=== PATIENT | male | born 1985 | race Two or more races ===

== ENCOUNTER 2020-10-28 08:44 | Outpatient (REF) | payer OTHER, SELFPAY ==
[2020-10-28 09:55] LABS: MANUAL DIFF FLAG NO
[2020-10-28 10:11] LABS: Basophils Absolute Auto 0.1 X10*3/uL (0.0-0.2); Basophils Percent Auto 0.9 % (0-2); Eosinophils Absolute Auto 0.5 X10*3/uL (0.0-0.4); Hematocrit 44.4 % (42-52); Hemoglobin 14.8 g/dl (14.0-18.0); Imm Gran Abs Auto 0.02 X10*3/uL (0.00-0.03); Imm Gran Pct Auto 0.3 % (0.0-0.4); Lymphocytes Absolute Auto 1.9 X10*3/uL (1.2-4.9); Lymphocytes Percent Auto 26.7 % (20-40); Mean Corpuscular HGB Conc 33.3 g/dl (31.0-36.0); Mean Corpuscular Hemoglobin 28.1 pg (27.0-33.0); Mean Corpuscular Volume 84.4 fL (80-98); Mean Platelet Volume 10.4 fL (9.4-12.4); Monocytes Absolute Auto 0.7 X10*3/uL (0.1-1.2); Monocytes Percent Auto 10.4 % (2-11); Neutrophils Absolute Auto 3.8 X10*3/uL (2.0-8.3); Neutrophils Percent Auto 54.7 % (45-73); Platelet Count 280 X10*3/uL (160-400); Red Blood Count 5.26 X10*6/uL (4.60-5.80); Red Cell Distribution Width 12.8 % (11.0-16.0)
[2020-10-28 11:03] LABS: Alanine Aminotransferase 33 U/L (0-40); Albumin Level 4.7 g/dL (3.5-5.0); Alkaline Phosphatase 58 U/L (39-117); Anion Gap 14 (12-20); Aspartate Amino Transferase 18 U/L (5-37); Bilirubin Total 0.6 mg/dL (0.0-1.0); Blood Urea Nitrogen 21 mg/dL (9-16); Calcium 9.4 mg/dL (8.4-10.2); Carbon Dioxide 28 mmol/L (22-29); Chloride 105 mmol/L (96-108); Cholesterol 157 mg/dL; Estimated Glomerular Filt Rate > 60; Glucose Fasting 86 mg/dL (60-99); HDL Cholesterol 43 mg/dL; LDL Cholesterol Calculated 100 mg/dl; Potassium 4.3 mmol/l (3.3-5.1); Sodium 143 mmol/L (135-145); Total Protein 7.6 g/dL (6.5-8.0); Triglycerides 73 mg/dL
== END 2020-10-28 08:45 | disposition home or self-care (01) ==
LOC: HO.LAB 08:44
PROVIDERS: PCP Internal Medicine; Visit Provider Internal Medicine
DX: Z00.00 Encounter for general adult medical examination without abnormal findings (principal); E11.9 Type 2 diabetes mellitus without complications
CPT/HCPCS: 36415; 80053; 80061; 85025

== ENCOUNTER → 2020-12-22 08:13 | Outpatient (BNVA) | payer SELFPAY | PROVIDERS: PCP Internal Medicine; Visit Provider Internal Medicine | DX: Z02.79 Encounter for issue of other medical certificate (principal) ==

== ENCOUNTER → 2022-12-01 10:50 | Outpatient (BNVA) | payer SELFPAY | PROVIDERS: PCP Internal Medicine; Visit Provider Internal Medicine | DX: Z02.79 Encounter for issue of other medical certificate (principal) ==

== ENCOUNTER → 2022-12-26 07:24 | Outpatient (REF) | payer OTHER, SELFPAY ==
[2022-12-26 07:34] LABS: MANUAL DIFF FLAG NO
--- NOTE | 2022-12-26 07:46 | ECG_ITS ---
Test Reason : htn Blood Pressure : / mmHG Vent. Rate : 063 BPM Atrial Rate : 063 BPM P-R Int : 126 ms QRS Dur : 106 ms QT Int : 394 ms P-R-T Axes : 068 010 025 degrees QTc Int : 403 ms Normal sinus rhythm Minimal voltage criteria for LVH, may be normal variant ( R in aVL ) Borderline ECG No previous ECGs available Referred By: Manan Murry Electronically Signed By:Cedrick Randall
[2022-12-26 08:25] LABS: Basophils Percent Auto 0.5 % (0-2); Eosinophils Absolute Auto 0.5 X10*3/uL (0.0-0.4); Eosinophils Percent Auto 6.4 % (0-4); Hematocrit 45.5 % (42.0-52.0); Hemoglobin 15.1 g/dl (14.0-18.0); Imm Gran Abs Auto 0.03 X10*3/uL (0.00-0.03); Imm Gran Pct Auto 0.4 % (0.0-0.4); Lymphocytes Absolute Auto 2.4 X10*3/uL (1.2-4.9); Mean Corpuscular HGB Conc 33.2 g/dl (31.0-36.0); Mean Corpuscular Hemoglobin 27.9 pg (27.0-33.0); Mean Corpuscular Volume 83.9 fL (80.0-98.0); Mean Platelet Volume 9.7 fL (9.4-12.4); Monocytes Absolute Auto 0.8 X10*3/uL (0.1-1.2); Monocytes Percent Auto 9.2 % (2-11); Neutrophils Absolute Auto 4.4 x10*3/uL (2.0-8.3); Neutrophils Percent Auto 53.5 % (45-73); Platelet Count 340 X10*3/uL (160-400); Red Blood Count 5.42 X10*6/uL (4.60-5.80); Red Cell Distribution Width 12.8 % (11.0-16.0); White Blood Count 8.1 X10*3/uL (4.8-10.8)
[2022-12-26 08:53] LABS: Alanine Aminotransferase 26 U/L (0-40); Albumin Level 4.7 g/dL (3.5-5.0); Alkaline Phosphatase 60 U/L (39-117); Anion Gap 16 (12-20); Aspartate Amino Transferase 16 U/L (5-37); Bilirubin Total 0.6 mg/dL (0.0-1.0); Blood Urea Nitrogen 13 mg/dL (9-16); Calcium 9.8 mg/dL (8.4-10.2); Carbon Dioxide 24 mmol/L (22-29); Chloride 107 mmol/L (96-108); Cholesterol 162 mg/dL; Estimated Glomerular Filt Rate > 60; Glucose Fasting 85 mg/dL (60-99); HDL Cholesterol 43 mg/dL; LDL Cholesterol Calculated 105 mg/dl; Potassium 4.4 mmol/L (3.3-5.1); Sodium 143 mmol/L (135-145); Total Protein 7.5 g/dL (6.5-8.0); Triglycerides 73 mg/dL
[2022-12-26 09:14] LABS: Thyroid Stimulating Hormone 1.39 uIU/mL (0.32-4.0)
== END ==
LOC: HO.CARD 07:24
PROVIDERS: PCP Internal Medicine; Visit Provider Internal Medicine
DX: E78.5 Hyperlipidemia, unspecified (principal); D64.9 Anemia, unspecified; N28.9 Disorder of kidney and ureter, unspecified; E03.9 Hypothyroidism, unspecified; I10 Essential (primary) hypertension
CPT/HCPCS: 36415; 80053; 80061; 84443; 85025; 93005

== ENCOUNTER → 2023-03-06 13:54 | Outpatient (BNVA) | payer OTHER, SELFPAY | PROVIDERS: PCP Internal Medicine; Referring Provider Internal Medicine; Visit Provider Internal Medicine | DX: R00.2 Palpitations (principal); R07.2 Precordial pain; I10 Essential (primary) hypertension; E66.9 Obesity, unspecified; Z68.31 Body mass index [BMI] 31.0-31.9, adult | CPT/HCPCS: 99202 ==

== ENCOUNTER → 2023-04-06 08:44 | Outpatient (REF) | payer OTHER, SELFPAY ==
--- NOTE | 2023-04-06 08:47 | HM_ITS ---
* Total monitoring time 3 days. * Underlying rhythm is sinus. Average ventricular rate 77/Min. Range 51 to 171/Min. * Rare supraventricular ventricular ectopy. Minimal burden. * No sustained arrhythmias. * No significant pauses or AV blocks. * Symptoms in diary including pain, rapid heartbeat correlate with sinus rhythm and sinus tachycardia. MTDD
--- NOTE | 2023-04-06 08:47 | CA_ITS ---
Transthoracic Echocardiogram Patient (Last, First, Middle): Gabe Patel H Gender: Male Date of : 1985 Age: 37 Procedure Date: 04/06/2023 Procedure Type: Transthoracic Echocardiogram Location: OP Height: 162.56 cm Weight: 81.65 kg BSA: 1.87 m2 Heart Rate: bpm BP: 130 / 82 mmHg Pumping Supervisor: TO Referring MD: Herber Salazar MD Symptoms: I25.10 - Atherosclerotic heart disease of [place] coronary artery without... Study Quality: Adequate ECG Rhythm: Sinus Conclusions: - The left ventricular systolic function is normal. The visually estimated ejection fraction is between 55-60%. - No obvious valvular pathology seen on this study. Findings Left Ventricle Normal left ventricular cavity size. There is normal left ventricular wall thickness. The left ventricular systolic function is normal. The visually estimated ejection fraction is between 55-60%. There is no evidence of regional wall motion abnormalities. Diastolic function is normal for age. LV peak GLS -20.4%. Right Ventricle Normal right ventricular cavity size and systolic function. Atria Both atria are normal in size. Aortic Valve There is a normal trileaflet aortic valve. There is no aortic valve stenosis. There is no aortic valve regurgitation. Mitral Valve There is mild anterior mitral leaflet thickening. There is no mitral valve regurgitation. There is no mitral valve stenosis. Pulmonic Valve The pulmonic valve is likely normal. Tricuspid Valve Normal tricuspid valve structure. There is mild tricuspid valve regurgitation. There is no evidence of pulmonary hypertension. Great Vessels The asc aorta is normal in size. Venous The inferior vena cava is normal in size and collapses greater than 50% with inspiration. Pericardium/Pleural There is no evidence of pericardial effusion. Prior Study Comparison No prior study available for comparison. Recommendations, Care & Conclusions No obvious valvular pathology seen on this study. Measurements 2D Linear Measurements IVSd: 1.03 0.6-0.9/0.6-1.0 cm LVIDd: 4.94 3.9-5.3/4.2-5.9 cm LVIDd Index: 2.64 2.4-3.2/2.2-3.1 cm/m2 LVIDs: 3.56 2.0-3.6 cm LVPWd: 0.91 0.7-1.1 cm LA Diam: 3.40 2.7-3.8/3.0-4.0 cm LAIDs Index: 1.82 1.5-2.3 cm/m2 LV Mass: 213.31 67-162/88-224 g LV Mass Index: 114.07 43-95/49-115 g/m2 LVOT Diam: 2.20 3.0+(-)1.3 cm 2D Systolic Function EF 4C: 65.10 >55% EF 2C: 59.40 >55% EF BiP: 62.30 >55% Mitral Valve MV VTI: 0.35 MV Pk Jamari: 1.45 MV Mn Jamari: 0.61 MV Pk Grad: 8.00 MV Mn Grad: 2.00 MV Pk E: 1.13 MV PK A: 0.46 MV Decel Time: 240.00 E/A: 2.50 E'Lateral: 17.00 E'Medial: 10.70 E/E' Med: 10.60 E/E' Lat: 6.60 PHT: 70.00 MVA PHT: 3.14 MVA Continuity: 2.09 Decel Gentry: 4.70 Aortic Valve AoV Pk Jamari: 1.64 AoV Mn Jamari: 1.05 AoV VTI: 0.31 AoV Pk Grad: 11.00 Aov Mn Grad: 5.00 YANETH Cont.VTI: 2.42 LVOT LVOT Pk Jamari: 1.01 LVOT Mn Jamari: 0.68 LVOT VTI: 0.19 LVOT Pk Grad: 4.00 LVOT Mn Grad: 2.00 LVOT Diam: 2.20 LVOT Area: 3.80 Diastolic Function MV Pk E: 1.13 MV Pk A: 0.46 E/A: 2.50 E'Medial: 10.70 E/E' Med: 10.60 E' Laterial: 17.00 E/E' Lat: 6.60 Right Ventricle TAPSE (mm): 22.80 TVS' Jamari: 12.90 Tricuspid Valve TR Pk Jamari: 2.74 TR Pk Grad: 30.00 RA Press: 3.00 RVSP: 33.00 Great Vessels Aorta Sinus of Valsalva: 3.34 2.0-3.5 cm Ao Asc: 2.90 2.1-3.4 cm Updated in Other Vendor System with Status of Final Herber Salazar MD electronically signed on 04/08/2023 12:00:22 PM with status of Final
== END ==
LOC: HO.CARD 08:44
PROVIDERS: PCP Internal Medicine; Visit Provider Internal Medicine
DX: R07.2 Precordial pain (principal); R00.2 Palpitations; I25.10 Atherosclerotic heart disease of native coronary artery without angina pectoris
CPT/HCPCS: 93242; 93306; 93356

== ENCOUNTER → 2023-04-14 10:25 | Outpatient (REF) | payer OTHER, SELFPAY ==
--- NOTE | 2023-04-14 10:30 | CA_ITS ---
Acquisition Time: 2023-04-14 10:55:49 Total Exercise Time: 00:09:00 Test Indications: Palpitations Medications: See H Protocol: JACOB Max HR: 176 BPM 96% of Pred: 183 BPM Max BP: 152/070 mmHG Max Work Load: 10.1 METS Exercise stress test with exercise 9 min of Jacob protocol, achieving 96% MPHR, without anginal symptoms, without arrythmia, with normotensive response to exercise, without EKG changes meeting criteria for ischemia. Echo images obtained by [employer] at rest and immediately post peak exercise. Definity contrast used. Test reviewed with Dr Randall. Echocardiography images reviewed at rest and post exercise. Resting: normal LVEF, no RWMA. Stress: No stress induced RWMA, LV cavity is smaller and LVEF appropriately augmented. Conclusion: Normal stress echocardiogram at achieved workload.
== END ==
LOC: HO.CARD 10:25
PROVIDERS: PCP Internal Medicine; Visit Provider Internal Medicine
DX: R07.2 Precordial pain (principal)
CPT/HCPCS: 93350; Q9957

== ENCOUNTER 2023-04-28 14:23 | Outpatient (AMB) | payer OTHER, SELFPAY ==
[2023-04-28 14:52] VITALS: BP 140/80; PULSE 79; BMI 31.0
--- NOTE | 2023-04-28 14:52 | MHC.OFFVIS ---
Intake Vital Signs 04/28/23 14:52 Height 5 ft 4 in Weight 180 lb 12.465 oz BMI 31.0 BP 140/80 H Blood Pressure Location Lt brachial Position Sitting Pulse 79 Intake Visit Reasons: pt requested/followup Intake Note: pt request f/u Retail Sales Consultant Required: Yes Retail Sales Consultant Name: angelo cifuentes [phone] Allergies No Known Allergies Allergy (Verified 04/28/23 15:00) Medication List - Last Reconciled 04/28/23 by KENYON Duvall amlodipine 10 mg PO DAILY HPI pt requested/followup HPI Details Gabe is a 37-year-old male with past medical history of mild obesity, hypertension who recently reported heart palpitations and atypical chest discomfort. He underwent cardiac testing with echocardiogram, stress test and Holter monitor and now presents for follow-up. today he states that he continues to feel his heart go fast at times. It mostly occurs after eating and when he lays down at night. He will also get a periodically cramp in his left side which occurs randomly. He has no dizziness, presyncope, syncope, falls. No exertional chest discomfort. No shortness of breath, PND, orthopnea or edema. He has been taking his blood pressure medication as directed. Certified ripening room hand used. [facility] Medical History (Updated 03/06/23 @ 14:20 by Herber Salazar MD) Hypertension Surgical History No history of previous surgery Family History Mother High blood pressure Cancer Father No problems noted. Social History Housing: Apartment Alcohol intake: current Alcohol intake frequency: a few times a month Patient Tobacco Use Status: Never used Tobacco e-Cigarette/Vaping Use: Never Used Second Hand Smoke Exposure: No service: No Current occupational status: employed Cognitive needs: No Hearing needs: No Vision needs: No Review of Systems ENT Reports dizziness Card Denies chest pain, Denies chest pain at rest, Denies chest pain with activity, Denies rapid heart rate, Denies pedal edema, Denies edema, Denies leg edema, Denies lightheadedness, Reports palpitations, Denies dyspnea, Denies dyspnea on exertion and Denies orthopnea Resp Denies cough, Denies dyspnea and Denies dyspnea on exertion GI Denies hematochezia and Denies change in stool character Musc Denies abnormal gait, Reports limited range of motion, Reports muscle cramps, Denies muscle weakness, Denies numbness, Denies radiating pain into limb, Denies stiffness and Denies tingling Neuro Denies abnormal gait, Reports dizziness, Denies numbness and Denies tingling Endo Reports palpitations Physical Exam Vital Signs: Last Vital Signs Pulse 79 04/28/23 14:52 BP 140/80 H 04/28/23 14:52 BMI result Body Mass Index 31.0 Const General: cooperative, healthy appearing, comfortable and no acute distress Orientation/consciousness: patient oriented x3 Neck Neck: Yes normal visual inspection and Yes no JVD Carotids: normal carotid upstroke Chest Chest palpation & inspection: normal inspection of the chest Resp Effort & Inspection: normal respiratory effort Auscultation: clear to auscultation bilaterally, no crackles, no rales, no rhonchi and no wheezes Cardio Jugular venous distension: no JVD Rate: regular rate Rhythm: regular rhythm Heart sounds: S1 normal heart sound present, S2 normal heart sound present, no gallops, no murmurs and no rubs Neuro General: patient oriented x3 Extrem General: Yes normal to inspection Psych Appearance: grossly normal Mental Status: mental status grossly normal Speech and movement: Normal speech and movement present Office Procedures EKG Details: today, read by me, SR, no acute ST/ T wave abn, rate 79, qtc 433ms [id number], Complete Assessment & Plan Assessment & Plan (1) Palpitations: Code(s): R00.2 - Palpitations Plan: Report of heart palpitation like his heart is beating fast without associated symptoms. Holter monitor done on 04/06/2023 for 3 days showed sinus rhythm with rare supra ventricular ectopy, average heart rate 77, reported symptoms correlated with sinus rhythm and sinus tach. Echocardiogram done 04/06/2023 showed EF 55-60%, no valve abnormalities and no reported regional wall motion abnormalities. Reviewed with him and offered reassurance. He confirmed that he did feel his heart palpitations while wearing the heart monitor. Blood pressure was initially mildly elevated then improved on recheck. Elevated blood pressure meetings keep may contribute to his strong heart pounding. Reviewed good hydration, exercise as tolerated, importance of good blood pressure control. Cardiology follow-up can be p.r.n. (2) Precordial chest pain: Code(s): R07.2 - Precordial pain Plan: on last visit reported some chest discomfort. Today he describes it more as being a cramp on his left side. An exercise stress echo was done on 04/14 showing exercise 9 minutes, no EKG changes, no echo evidence of ischemia. His discomfort is atypical and no evidence that it is cardiac in nature. He has follow-up with his PCP in June. Can further discuss with PCP if his symptoms persist (3) Hypertension: Code(s): I10 - Essential (primary) hypertension Plan: as above. Continue amlodipine without change. Coding Level of Care Code Est Pt Level 4 (71015) Diagnoses Palpitations R00.2 Precordial chest pain R07.2 Hypertension I10 CPT Codes EKG - CPT: 28611-[id number], Complete ([id number]) Time Spent (min) 28 Comment chart review, document, interview, assess
== END 2023-04-28 15:48 | disposition home or self-care (01) ==
PROVIDERS: PCP Internal Medicine; Visit Provider Nurse Practitioner Family
DX: R00.2 Palpitations (principal); R07.2 Precordial pain; I10 Essential (primary) hypertension
CPT/HCPCS: 93010; 99214

== ENCOUNTER → 2023-04-28 14:23 | Outpatient (BNVA) | payer OTHER, SELFPAY | PROVIDERS: PCP Internal Medicine; Visit Provider Nurse Practitioner Family | DX: R00.2 Palpitations (principal); R07.2 Precordial pain; I10 Essential (primary) hypertension | CPT/HCPCS: 93005; 99212 ==

== ENCOUNTER 2023-07-05 13:26 | Outpatient (AMB) | payer OTHER, SELFPAY ==
[2023-07-05 13:30] VITALS: BP 128/66; PULSE 80; O2SAT 99; BMI 30.6
--- NOTE | 2023-07-05 13:30 | A.OFFPC_ITS ---
Vital Signs 07/05/23 13:30 Height 5 ft 4 in Weight 178 lb BMI 30.6 BP 128/66 Blood Pressure Location Lt brachial Position Sitting Pulse 80 Pulse Source Pulse Oximeter Pulse Oximetry (%) 99 Oxygen Delivery Method Room Air Intake Visit Reasons: 6 month f/u Cask Maker: Not Required per policy Accompanied by: Self / Same As Patient Allergies No Known Allergies Allergy (Verified 07/05/23 13:30) Tobacco use date assessed: 12/22/22 Dental Screening Dental Screen Date: 07/05/23 Did you have a dental visit in the last 12 months?: Yes Did you have a dental problem in the last 6 months where you did not have access to dental care?: No Was dental information given to patient?: Patient has dentist HPI 6 month f/u HPI Details HTN; bp has been elevated at home [facility] Medical History Hypertension Surgical History No history of previous surgery Family History Mother High blood pressure Cancer Father No problems noted. Social History Housing: Apartment Alcohol intake: current Alcohol intake frequency: a few times a month Patient Tobacco Use Status: Never used Tobacco e-Cigarette/Vaping Use: Never Used Second Hand Smoke Exposure: No service: No Current occupational status: employed Cognitive needs: No Hearing needs: No Vision needs: No Questionnaire PHQ-9 Over the last 2 weeks, how often have you been bothered by any of the following problems? 1. Little interest or pleasure in doing things: not at all 2. Feeling down, depressed, or hopeless: not at all 3. Trouble falling or staying asleep, or sleeping too much: not at all 4. Feeling tired or having little energy: not at all 5. Poor appetite or overeating: not at all 6. Feeling bad about yourself - or that you are a failure or have let yourself or your family down: not at all 7. Trouble concentrating on things, such as reading the newspaper or watching television: not at all 8. Moving or speaking so slowly that other people could have noticed. Or the opposite - being so fidgety or restless that you have been moving around a lot more than usual: not at all 9. Thoughts that you would be better off or of hurting yourself in some way: not at all Total score: 0 Depression Screening Interpretation: Negative 61217 - PHQ-9 Billing: Yes Source: Developed by Drs. Abhijeet Nunn, Mary Baker, Sherwin Kaminski and colleagues, with an educational valarie from [employer]. Thrive Questionnaire Date Thrive assessed: 12/22/22 AUDIT C Alcohol Use Questionnaire (AUDIT-C) 1. How often do you have a drink containing alcohol?: Never Total Score: 0 MARVEL-7 AMB Questionnaire MARVEL-7 Date MARVEL - 7 assessed: 12/22/22 Source: Developed by Drs. Abhijeet Nunn, Mary Baker, Sherwin Kaminski and colleagues, with an educational valarie from [employer]. Review of Systems Const Denies chills, Denies headache(s) and Denies weight loss ENT Denies headache(s) Card Denies chest pain, Denies syncope, Denies irregular heart rhythm and Denies d yspnea Resp Denies chest congestion, Denies cough and Denies dyspnea GI Denies abdominal pain, Denies change in stool character, Denies nausea and Den ies vomiting Musc Denies deformity and Denies joint swelling Neuro Denies syncope and Denies headache(s) Physical exam (Primary Care) Vital Signs: Last Vital Signs Pulse 80 07/05/23 13:30 BP 128/66 07/05/23 13:30 Pulse Ox 99 07/05/23 13:30 Oxygen Delivery Method Room Air 07/05/23 13:30 BMI result Body Mass Index 30.6 Tobacco/Smoking Status: Tobacco use Status Tobacco use date assessed 12/22/22 07/05/23 13:33 Patient Tobacco Use Status Never used Tobacco 07/05/23 13:33 Tobacco use type 03/06/23 14:26 e-Cigarette/Vaping Use Never Used 07/05/23 13:33 PHQ-9: PHQ-9 Score PHQ-9: Total score 0 07/05/23 13:33 Depression Screening Interpretation: Negative Thrive Assessment: Date of Thrive Assessment Date Thrive assessed 12/22/22 07/05/23 13:33 Const General: cooperative, comfortable, no acute distress and alert Neck Neck: Yes no lymphadenopathy Thyroid: Thyroid normal Resp Effort & Inspection: normal respiratory effort Auscultation: clear to auscultation bilaterally Percussion: percussion normal Cardio Jugular venous distension: no JVD Palpation: normal PMI Rate: regular rate Rhythm: regular rhythm Heart sounds: S1 normal heart sound present and S2 normal heart sound present GI Inspection: Yes normal to inspection Palpation (GI): No hepatosplenomegaly present Skin General skin exam: no rashes or lesions noted Extrem General: Yes no clubbing, cyanosis or edema Assessment and Plan Assessment & Plan (1) Hypertension: Code(s): I10 - Essential (primary) hypertension Plan: add hctz Medications: New hydrochlorothiazide 12.5 mg PO DAILY 60 tabs 3RF Coding Level of Care Code Est Pt Level 3 (77562) Diagnoses Hypertension I10
== END 2023-07-05 13:41 | disposition home or self-care (01) ==
PROVIDERS: Visit Provider Internal Medicine
DX: I10 Essential (primary) hypertension (principal)
CPT/HCPCS: 99213

== ENCOUNTER 2023-07-24 13:33 | Outpatient (AMB) | payer OTHER, SELFPAY ==
--- NOTE | 2023-07-24 13:34 | MHC.PC.OV ---
Vital Signs 07/24/23 13:35 Height 5 ft 4 in Weight 175 lb BMI 30.0 BP 128/76 Blood Pressure Location Lt brachial Position Sitting Pulse 75 Pulse Source Pulse Oximeter Pulse Oximetry (%) 98 Oxygen Delivery Method Room Air Intake Visit Reasons: 3 Weeks F/U Intake Note: Patient here for a 3 week follow up, c/o nasal congestion requesting stabilizing machine operator referral Plant Taxonomist Required: No Accompanied by: Self / Same As Patient Allergies No Known Allergies Allergy (Verified 07/24/23 13:36) Medication List - Last Reconciled 07/25/23 by Manan Murry MD amlodipine 10 mg PO DAILY Tobacco use date assessed: 12/22/22 Dental Screening Dental Screen Date: 07/24/23 Did you have a dental visit in the last 12 months?: Yes Did you have a dental problem in the last 6 months where you did not have access to dental care?: No Was dental information given to patient?: Patient has dentist HPI 3 Weeks F/U HPI Details HTN on Rx; doing well on current regimen PFSH Medical History Hypertension Surgical History No history of previous surgery Family History Mother High blood pressure Cancer Father No problems noted. Social History Housing: Apartment Alcohol intake: current Alcohol intake frequency: a few times a month Patient Tobacco Use Status: Never used Tobacco e-Cigarette/Vaping Use: Never Used Second Hand Smoke Exposure: No service: No Current occupational status: employed Cognitive needs: No Hearing needs: No Vision needs: No Questionnaire PHQ-9 Over the last 2 weeks, how often have you been bothered by any of the following problems? Depression Screening Interpretation: Negative Depression Screening Done: Yes Source: Developed by Drs. Abhijeet Nunn, Mary Baker, Sherwin Kaminski and colleagues, with an educational valarie from [employer]. Thrive Questionnaire Date Thrive assessed: 12/22/22 MARVEL-7 AMB Questionnaire MARVEL-7 Date MARVEL - 7 assessed: 12/22/22 Source: Developed by Drs. Abhijeet Nunn, Mary Baker, Sherwin Kaminski and colleagues, with an educational valarie from [employer]. Review of Systems Const Denies chills, Denies headache(s) and Denies weight loss ENT Denies headache(s) Card Denies chest pain, Denies syncope, Denies irregular heart rhythm and Denies dyspnea Resp Denies chest congestion, Denies cough and Denies dyspnea GI Denies abdominal pain, Denies change in stool character, Denies nausea and Denies vomiting Musc Denies deformity and Denies joint swelling Neuro Denies syncope and Denies headache(s) Physical exam (Primary Care) Vital Signs: Last Vital Signs Pulse 75 07/24/23 13:35 BP 128/76 07/24/23 13:35 Pulse Ox 98 07/24/23 13:35 Oxygen Delivery Method Room Air 07/24/23 13:35 BMI result Body Mass Index 30.0 Tobacco/Smoking Status: Tobacco use Status Tobacco use date assessed 12/22/22 07/24/23 13:39 Patient Tobacco Use Status Never used Tobacco 07/24/23 13:39 Tobacco use type 03/06/23 14:26 e-Cigarette/Vaping Use Never Used 07/24/23 13:39 Depression Screening Interpretation: Negative Thrive Assessment: Date of Thrive Assessment Date Thrive assessed 12/22/22 07/24/23 13:39 Const General: cooperative, comfortable, no acute distress and alert Neck Neck: Yes no lymphadenopathy Thyroid: Thyroid normal Resp Effort & Inspection: normal respiratory effort Auscultation: clear to auscultation bilaterally Percussion: percussion normal Cardio Jugular venous distension: no JVD Palpation: normal PMI Rate: regular rate Rhythm: regular rhythm Heart sounds: S1 normal heart sound present and S2 normal heart sound present GI Inspection: Yes normal to inspection Palpation (GI): No hepatosplenomegaly present Skin General skin exam: no rashes or lesions noted Extrem General: Yes no clubbing, cyanosis or edema Office Procedures Flu Questionnaire Does the patient have a severe egg allergy?: No Immunizations flu vacc [id number] 6mos up(PF) 60 mcg(15 mcgx4)/0.5 mL IM syringe Performing Provider: Manan Murry MD [facility] Documented (not given) by: MANSI Gunn on 07/24/23 13:40 Reason Not Given: Patient Refused Assessment and Plan Assessment & Plan (1) Hypertension: Code(s): I10 - Essential (primary) hypertension Plan: stable; same rx Orders: Orders Influenza [id number] Immunization 07/24/23 Z23 - Encounter for immunization XR skull <4V 07/24/23 Q75.9 - Congenital malformation of skull and face bones, unspecified Coding Level of Care Code Est Pt Level 3 (97308) Diagnoses Hypertension I10
[2023-07-24 13:35] VITALS: BP 128/76; PULSE 75; O2SAT 98
== END 2023-07-24 13:46 | disposition home or self-care (01) ==
PROVIDERS: PCP Internal Medicine; Visit Provider Internal Medicine
DX: I10 Essential (primary) hypertension (principal); E66.9 Obesity, unspecified; Z68.30 Body mass index [BMI] 30.0-30.9, adult
CPT/HCPCS: 99213

== ENCOUNTER 2023-07-24 13:55 | Outpatient (REF) | payer OTHER, SELFPAY ==
--- NOTE | ~2023-07-24 | XR_ITS ---
EXAMINATION: XR SKULL CLINICAL INFORMATION: Question congenital malformation. COMPARISON: None available. TECHNIQUE: 5 views of the skull were obtained. FINDINGS: The calvarium is intact. The sutural pattern is unremarkable. No congenital malformation is noted. The orbits are symmetric and unremarkable. The paranasal sinuses are well aerated and clear. The nasal septum is midline. No fracture or bone erosion is seen. There is no soft tissue calcification or foreign body noted. XR/XR skull <4V IMPRESSION: Unremarkable examination.
== END 2023-07-24 13:56 | disposition home or self-care (01) ==
LOC: HO.XRAY 13:55
PROVIDERS: PCP Internal Medicine; Visit Provider Internal Medicine
DX: Q75.9 Congenital malformation of skull and face bones, unspecified (principal)
CPT/HCPCS: 70250

== ENCOUNTER 2023-09-04 09:21 | Outpatient (AMB) | payer OTHER, SELFPAY ==
[2023-09-04 09:24] VITALS: BP 111/60; PULSE 64; O2SAT 99; BMI 30.9
--- NOTE | 2023-09-04 09:24 | MHC.PC.OV ---
Vital Signs 09/04/23 09:24 Height 5 ft 4 in Weight 180 lb BMI 30.9 BP 111/60 Blood Pressure Location Lt brachial Position Sitting Pulse 64 Pulse Source Pulse Oximeter Pulse Oximetry (%) 99 Oxygen Delivery Method Room Air Intake Visit Reasons: 3 week f/u Staff Anesthesiologist: Not Required per policy Accompanied by: Self / Same As Patient Allergies No Known Allergies Allergy (Verified 09/04/23 09:24) Medication List - Last Reconciled 09/04/23 by Manan Murry MD amlodipine 10 mg PO DAILY Tobacco use date assessed: 12/22/22 Dental Screening Dental Screen Date: 09/04/23 Did you have a dental visit in the last 12 months?: Yes Did you have a dental problem in the last 6 months where you did not have access to dental care?: No Was dental information given to patient?: Patient has dentist HPI 3 week f/u HPI Details HTN on Rx; dizzy in AM; BP too low PFSH Medical History Hypertension Surgical History No history of previous surgery Family History Mother High blood pressure Cancer Father No problems noted. Social History Housing: Apartment Alcohol intake: current Alcohol intake frequency: a few times a month Patient Tobacco Use Status: Never used Tobacco e-Cigarette/Vaping Use: Never Used Second Hand Smoke Exposure: No service: No Current occupational status: employed Cognitive needs: No Hearing needs: No Vision needs: No Questionnaire PHQ-9 Over the last 2 weeks, how often have you been bothered by any of the following problems? Depression Screening Interpretation: Negative Depression Screening Done: Yes Source: Developed by Drs. Abhijeet Nunn, Mary Baker, Sherwin Kaminski and colleagues, with an educational valarie from [employer]. Thrive Questionnaire Date Thrive assessed: 12/22/22 AUDIT C Alcohol Use Questionnaire (AUDIT-C) 1. How often do you have a drink containing alcohol?: Never Total Score: 0 MARVEL-7 AMB Questionnaire MARVEL-7 Date MARVEL - 7 assessed: 12/22/22 Source: Developed by Drs. Abhijeet Nunn, Mary Baker, Sherwin Kaminski and colleagues, with an educational valarie from [employer]. Review of Systems Const Denies chills, Denies headache(s) and Denies weight loss ENT Denies headache(s) Card Denies chest pain, Denies syncope, Denies irregular heart rhythm and Denies dyspnea Resp Denies chest congestion, Denies cough and Denies dyspnea GI Denies abdominal pain, Denies change in stool character, Denies nausea and Denies vomiting Musc Denies deformity and Denies joint swelling Neuro Denies syncope and Denies headache(s) Physical exam (Primary Care) Vital Signs: Last Vital Signs Pulse 64 09/04/23 09:24 BP 111/60 09/04/23 09:24 Pulse Ox 99 09/04/23 09:24 Oxygen Delivery Method Room Air 09/04/23 09:24 BMI result Body Mass Index 30.9 Tobacco/Smoking Status: Tobacco use Status Tobacco use date assessed 12/22/22 09/04/23 09:28 Patient Tobacco Use Status Never used Tobacco 09/04/23 09:28 Tobacco use type 03/06/23 14:26 e-Cigarette/Vaping Use Never Used 09/04/23 09:28 Depression Screening Interpretation: Negative Thrive Assessment: Date of Thrive Assessment Date Thrive assessed 12/22/22 09/04/23 09:28 Const General: cooperative, comfortable, no acute distress and alert Neck Neck: Yes no lymphadenopathy Thyroid: Thyroid normal Resp Effort & Inspection: normal respiratory effort Auscultation: clear to auscultation bilaterally Percussion: percussion normal Cardio Jugular venous distension: no JVD Palpation: normal PMI Rate: regular rate Rhythm: regular rhythm Heart sounds: S1 normal heart sound present and S2 normal heart sound present GI Inspection: Yes normal to inspection Palpation (GI): No hepatosplenomegaly present Skin General skin exam: no rashes or lesions noted Extrem General: Yes no clubbing, cyanosis or edema Assessment and Plan Assessment & Plan (1) Hypertension: Code(s): I10 - Essential (primary) hypertension Plan: decrease rx to 5mg; check labs Orders: Orders Lipid Panel Today E78.5 - Hyperlipidemia, unspecified Complete Blood Count Auto Diff Today D64.9 - Anemia, unspecified Comprehensive [place]. Panel Fast Today N28.9 - Disorder of kidney and ureter, unspecified Medications: New amlodipine 5 mg PO DAILY 30 tabs 5RF Discontinued amlodipine Discontinued Reason: Doctor's Order 10 mg PO DAILY 90 tabs 4RF Coding Level of Care Code Est Pt Level 3 (27675) Diagnoses Hypertension I10
== END 2023-09-04 09:36 | disposition home or self-care (01) ==
PROVIDERS: PCP Internal Medicine; Visit Provider Internal Medicine
DX: I10 Essential (primary) hypertension (principal)
CPT/HCPCS: 99213

== ENCOUNTER 2023-09-05 07:04 | Outpatient (REF) | payer OTHER, SELFPAY ==
[2023-09-05 07:17] LABS: MANUAL DIFF FLAG NO
[2023-09-05 07:34] LABS: Basophils Absolute Auto 0.1 X10*3/uL (0.0-0.2); Basophils Percent Auto 0.7 % (0-2); Eosinophils Absolute Auto 0.6 X10*3/uL (0.0-0.4); Eosinophils Percent Auto 8.3 % (0-4); Hematocrit 44.2 % (42.0-52.0); Hemoglobin 14.7 g/dl (14.0-18.0); Imm Gran Abs Auto 0.03 X10*3/uL (0.00-0.03); Imm Gran Pct Auto 0.4 % (0.0-0.4); Lymphocytes Absolute Auto 2.1 X10*3/uL (1.2-4.9); Lymphocytes Percent Auto 29.1 % (20-40); Mean Corpuscular HGB Conc 33.3 g/dl (31.0-36.0); Mean Corpuscular Hemoglobin 27.7 pg (27.0-33.0); Mean Corpuscular Volume 83.2 fL (80.0-98.0); Mean Platelet Volume 9.5 fL (9.4-12.4); Monocytes Absolute Auto 0.7 X10*3/uL (0.1-1.2); Neutrophils Absolute Auto 3.7 x10*3/uL (2.0-8.3); Neutrophils Percent Auto 51.5 % (45-73); Platelet Count 282 X10*3/uL (160-400); Red Blood Count 5.31 X10*6/uL (4.60-5.80); Red Cell Distribution Width 12.9 % (11.0-16.0); White Blood Count 7.2 X10*3/uL (4.8-10.8)
[2023-09-05 07:51] LABS: Alanine Aminotransferase 22 U/L (0-40); Albumin Level 4.4 g/dL (3.5-5.0); Alkaline Phosphatase 62 U/L (39-117); Anion Gap 8 (12-20); Aspartate Amino Transferase 15 U/L (5-37); Bilirubin Total 0.6 mg/dL (0.0-1.0); Blood Urea Nitrogen 12 mg/dL (9-16); Calcium 9.4 mg/dL (8.4-10.2); Carbon Dioxide 28 mmol/L (22-29); Chloride 109 mmol/L (96-108); Cholesterol 149 mg/dL (<200); Estimated Glomerular Filt Rate > 60; Glucose Fasting 91 mg/dL (60-99); HDL Cholesterol 45 mg/dL (>40); LDL Cholesterol Calculated 91 mg/dL (<100); Potassium 3.8 mmol/L (3.3-5.1); Sodium 141 mmol/L (135-145); Total Protein 7.4 g/dL (6.5-8.0); Triglycerides 67 mg/dL (<150)
== END 2023-09-05 07:05 | disposition home or self-care (01) ==
LOC: HO.LAB 07:04
PROVIDERS: PCP Internal Medicine; Visit Provider Internal Medicine
DX: D64.9 Anemia, unspecified (principal); E78.5 Hyperlipidemia, unspecified; N28.9 Disorder of kidney and ureter, unspecified
CPT/HCPCS: 36415; 80053; 80061; 85025

== ENCOUNTER 2024-03-20 08:39 | Outpatient (AMB) | payer OTHER, SELFPAY ==
--- NOTE | 2024-03-20 08:57 | A.OFFPC_ITS ---
Vital Signs 03/20/24 08:59 Height 5 ft 4 in Weight 181 lb BMI 31.1 BP 124/74 Blood Pressure Location Lt brachial Position Sitting Pulse 67 Pulse Source Pulse Oximeter Pulse Oximetry (%) 98 Oxygen Delivery Method Room Air Intake Visit Reasons: fungal toenail Intake Note: Patient is here to follow up on Fungal toenail on both feet, right worse than left. Glove Parts Inspector Required: No Electronics Supervisor: Not Required per policy Accompanied by: Self / Same As Patient Allergies No Known Allergies Allergy (Verified 03/20/24 08:58) Tobacco use date assessed: 03/20/24 Dental Screening Dental Screen Date: 03/20/24 Did you have a dental visit in the last 12 months?: Yes Did you have a dental problem in the last 6 months where you did not have access to dental care?: No Was dental information given to patient?: Patient has dentist HPI fungal toenail HPI Details 38-year-old male presents to the office for a sick visit. I am seeing him in lieu of his primary care provider who is not in the office today. Patient is reporting that his toenails are disfigured. The toenail on the great toe of the right foot, came off last week. He would like to get possible treatment for it. [facility] Medical History Hypertension Surgical History No history of previous surgery Family History Mother High blood pressure Cancer Father No problems noted. Social History Housing: Apartment Alcohol intake: current Alcohol intake frequency: a few times a month Patient Tobacco Use Status: Never used Tobacco e-Cigarette/Vaping Use: Never Used Second Hand Smoke Exposure: No service: No Current occupational status: employed Cognitive needs: No Hearing needs: No Vision needs: No Questionnaire PHQ-9 Over the last 2 weeks, how often have you been bothered by any of the following problems? 1. Little interest or pleasure in doing things: not at all 2. Feeling down, depressed, or hopeless: not at all 3. Trouble falling or staying asleep, or sleeping too much: not at all 4. Feeling tired or having little energy: not at all 5. Poor appetite or overeating: not at all 6. Feeling bad about yourself - or that you are a failure or have let yourself or your family down: not at all 7. Trouble concentrating on things, such as reading the newspaper or watching television: not at all 8. Moving or speaking so slowly that other people could have noticed. Or the opposite - being so fidgety or restless that you have been moving around a lot more than usual: not at all 9. Thoughts that you would be better off or of hurting yourself in some way: not at all Total score: 0 Depression Screening Interpretation: Negative Depression Screening Done: Yes Source: Developed by Drs. Abhijeet Nunn, Mary Baker, Sherwin Kaminski and colleagues, with an educational valarie from [employer]. Thrive Questionnaire Date Thrive assessed: 03/20/24 I am a: Patient What is your living situation today?: I have a steady place to live Within the past 12 months, did the food you bought not last and you didn't have the money to get more?: Never true Within the past 12 months, did you worry whether your food would run out before you got money to buy more?: Never true Do you have trouble paying for medicines?: No Do you have trouble getting transportation to medical appointments?: No Do you have trouble paying your heating and electricity bill?: No Do you have trouble taking care of your child, family member or friend?: No Do you have trouble with day-to-day activities such as bathing, preparing meals, shopping, managing finances, etc.?: No Are you currently unemployed and looking for a job?: No Are you interested in more education?: No Currently or been in a relationship where the following occur: no concerns reported THRIVE Score: 0 AUDIT C Alcohol Use Questionnaire (AUDIT-C) 1. How often do you have a drink containing alcohol?: Never Total Score: 0 MARVEL-7 AMB Questionnaire MARVEL-7 Date MARVEL - 7 assessed: 03/20/24 Feeling nervous, anxious, or on edge: 0 = Not at all Not being able to stop or control worryin = Not at all Worrying too much about different things: 0 = Not at all Trouble relaxin = Not at all Being so restless that it is hard to sit still: 0 = Not at all Becoming easily annoyed or irritable: 0 = Not at all Feeling afraid as if something awful might happen: 0 = Not at all Total MARVEL-7 score (0-4 normal; 5-9 mild; 10-14 moderate; 15-21 severe): 0 Source: Developed by Drs. Abhijeet Nunn, Mary Baker, Sherwin Kaminski and colleagues, with an educational valarie from [employer]. Physical exam (Primary Care) Vital Signs: Last Vital Signs Pulse 67 03/20/24 08:59 BP 124/74 03/20/24 08:59 Pulse Ox 98 03/20/24 08:59 Oxygen Delivery Method Room Air 03/20/24 08:59 BMI result Body Mass Index 31.1 Tobacco/Smoking Status: Tobacco use Status Tobacco use date assessed 03/20/24 03/20/24 09:02 Patient Tobacco Use Status Never used Tobacco 03/20/24 09:02 Tobacco use type 03/06/23 14:26 e-Cigarette/Vaping Use Never Used 03/20/24 09:02 PHQ-9: PHQ-9 Score PHQ-9: Total score 0 03/20/24 09:02 Depression Screening Interpretation: Negative Thrive Assessment: Date of Thrive Assessment Date Thrive assessed 03/20/24 03/20/24 09:02 Currently or been in a relationship where the following occur: no concerns reported Extrem Other: Right and left foot: Great toe: Dystrophic nail on the left foot. Hard granulation tissue on the bed of the right great toe. Assessment and Plan Assessment & Plan (1) Nail dystrophy: Code(s): L60.3 - Nail dystrophy Plan: Podiatry consult has been requested. Coding Level of Care Code Est Pt Level 3 (37258) Diagnoses Nail dystrophy L60.3
[2024-03-20 08:59] VITALS: BP 124/74; PULSE 67; O2SAT 98; BMI 31.1
== END 2024-03-20 11:45 | disposition home or self-care (01) ==
PROVIDERS: PCP Internal Medicine; Visit Provider Internal Medicine
DX: L60.3 Nail dystrophy (principal)
CPT/HCPCS: 99213

== ENCOUNTER 2024-09-23 14:32 | Outpatient (AMB) | payer OTHER, SELFPAY ==
[2024-09-23 14:36] VITALS: BP 104/80; PULSE 74; O2SAT 97; BMI 31.3
--- NOTE | 2024-09-23 14:36 | A.OFFPC_ITS ---
Vital Signs 09/23/24 14:36 Height 5 ft 4 in Weight 182 lb 2 oz BMI 31.3 BP 104/80 Blood Pressure Location Lt brachial Position Sitting Pulse 74 Pulse Source Pulse Oximeter Pulse Oximetry (%) 97 Oxygen Delivery Method Room Air Intake Visit Reasons: annual exam Hairspring Setter Required: No Accompanied by: Self / Same As Patient Allergies No Known Allergies Allergy (Verified 09/23/24 14:37) Medication List - Last Reconciled 09/24/24 by Manan Murry MD amlodipine 5 mg PO DAILY Tobacco use date assessed: 09/23/24 Dental Screening Dental Screen Date: 09/23/24 Did you have a dental visit in the last 12 months?: Yes Did you have a dental problem in the last 6 months where you did not have access to dental care?: No Was dental information given to patient?: Patient has dentist HPI annual exam HPI Details HTN on Rx; doing well PFSH Medical History Hypertension Surgical History No history of previous surgery Family History Mother High blood pressure Cancer Father No problems noted. Social History Housing: Apartment Alcohol intake: current Alcohol intake frequency: a few times a month Patient Tobacco Use Status: Never used Tobacco e-Cigarette/Vaping Use: Never Used Second Hand Smoke Exposure: No service: No Current occupational status: employed Cognitive needs: No Hearing needs: No Vision needs: No Questionnaire PHQ-9 Over the last 2 weeks, how often have you been bothered by any of the following problems? 1. Little interest or pleasure in doing things: not at all 2. Feeling down, depressed, or hopeless: not at all 3. Trouble falling or staying asleep, or sleeping too much: not at all 4. Feeling tired or having little energy: not at all 5. Poor appetite or overeating: not at all 6. Feeling bad about yourself - or that you are a failure or have let yourself or your family down: not at all 7. Trouble concentrating on things, such as reading the newspaper or watching television: not at all 8. Moving or speaking so slowly that other people could have noticed. Or the opposite - being so fidgety or restless that you have been moving around a lot more than usual: not at all 9. Thoughts that you would be better off or of hurting yourself in some way: not at all Total score: 0 Source: Developed by Drs. Abhijeet Nunn, Mary Baker, Sherwin Kaminski and colleagues, with an educational valarie from [employer]. Thrive Questionnaire Date Thrive assessed: 09/23/24 I am a: Patient What is your living situation today?: I have a steady place to live Within the past 12 months, did the food you bought not last and you didn't have the money to get more?: Never true Within the past 12 months, did you worry whether your food would run out before you got money to buy more?: Never true Do you have trouble paying for medicines?: No Do you have trouble getting transportation to medical appointments?: No Do you have trouble paying your heating and electricity bill?: I choose not to answer this question Do you have trouble taking care of your child, family member or friend?: No Do you have trouble with day-to-day activities such as bathing, preparing meals, shopping, managing finances, etc.?: No Are you currently unemployed and looking for a job?: Yes Are you interested in more education?: No Please select the resources that you would like help with: None Currently or been in a relationship where the following occur: I choose not to answer THRIVE Score: 0 AUDIT C Alcohol Use Questionnaire (AUDIT-C) 1. How often do you have a drink containing alcohol?: Never Total Score: 0 MARVEL-7 AMB Questionnaire MARVEL-7 Date MARVEL - 7 assessed: 09/23/24 Feeling nervous, anxious, or on edge: 0 = Not at all Not being able to stop or control worryin = Not at all Worrying too much about different things: 0 = Not at all Trouble relaxin = Not at all Being so restless that it is hard to sit still: 0 = Not at all Becoming easily annoyed or irritable: 0 = Not at all Feeling afraid as if something awful might happen: 0 = Not at all Total MARVEL-7 score (0-4 normal; 5-9 mild; 10-14 moderate; 15-21 severe): 0 Source: Developed by Drs. Abhijeet Nunn, Mary Baker, Sherwin Kaminski and colleagues, with an educational valarie from [employer]. Review of Systems Const Denies chills, Denies fatigue, Denies headache(s) and Denies weight loss Eyes Denies change in vision, Denies diplopia and Denies eye pain ENT Denies vertigo, Denies dizziness, Denies headache(s) and Denies nasal discharge Card Denies chest pain, Denies rapid heart rate and Denies dyspnea on exertion Resp Denies chest congestion, Denies cough, Denies pain with cough and Denies dyspnea on exertion GI Denies abdominal pain, Denies hematochezia and Denies change in bowel habits Musc Denies myalgias, Denies arthralgias and Denies joint swelling Skin/Breast Denies lesions and Denies unusual bruising Neuro Denies vertigo, Denies dizziness, Denies headache(s) and Denies focal weakness Endo Denies fatigue Physical exam (Primary Care) Vital Signs: Last Vital Signs Pulse 74 09/23/24 14:36 BP 104/80 09/23/24 14:36 Pulse Ox 97 09/23/24 14:36 Oxygen Delivery Method Room Air 09/23/24 14:36 BMI result Body Mass Index 31.3 Tobacco/Smoking Status: Tobacco use Status Tobacco use date assessed 09/23/24 09/23/24 14:41 Patient Tobacco Use Status Never used Tobacco 09/23/24 14:41 Tobacco use type 03/06/23 14:26 e-Cigarette/Vaping Use Never Used 09/23/24 14:41 PHQ-9: PHQ-9 Score PHQ-9: Total score 0 09/23/24 14:41 Thrive Assessment: Date of Thrive Assessment Date Thrive assessed 09/23/24 09/23/24 14:41 Currently or been in a relationship where the following occur: I choose not to answer Const General: cooperative, healthy appearing and no acute distress Orientation/consciousness: oriented to person, oriented to place and oriented to time HENMT Head: Yes normal to inspection, Yes normocephalic and Yes atraumatic Mouth: Normal oral and palatal mucosa present and tongue normal Throat: Yes posterior oropharynx normal and Yes uvula midline Eyes General: appearance normal, both eyes and all related structures Neck Neck: Yes normal visual inspection, Yes full ROM and Yes no lymphadenopathy Thyroid: Thyroid normal Carotids: normal carotid upstroke Chest Chest palpation & inspection: normal inspection of the chest Resp Effort & Inspection: normal respiratory effort and able to speak in complete sentences Auscultation: clear to auscultation bilaterally Cardio Jugular venous distension: no JVD Palpation: normal PMI Rate: regular rate Rhythm: regular rhythm Heart sounds: S1 normal heart sound present and S2 normal heart sound present GI Inspection: Yes normal to inspection Palpation (GI): Soft to palpation and No hepatosplenomegaly present Auscultation: normal bowel sounds General: Yes no CVA tenderness Back/Spine/Pelvis Back: no CVA tenderness Skin General skin exam: no rashes or lesions noted Neuro General: oriented to person, oriented to place and oriented to time Extrem General: Yes normal to inspection and Yes full ROM Coding Level of Care Code New Pt Prev Care 18-39yr([id number] Diagnoses Physical exam Z00.00 Hypertension I10 Assessment & Plan Assessment & Plan (1) Physical exam: Code(s): Z00.00 - Encounter for general adult medical examination without abnormal findings Category: Medical Plan: stable; do labs (2) Hypertension: Code(s): I10 - Essential (primary) hypertension Category: Medical Plan: stable; same rx Orders: Referrals Podiatry Referral M79.673 - Pain in unspecified foot
--- OUTSIDE RECORDS SUMMARY | 2024-09-25 16:10 | XMS_ITS | Continuity of Care Document ---
Author Organization [place] - [facility], Allergy Address [address] [place] [address] Care Team Providers Care Bartender Helper Name Role Phone RUTH FERNANDES Primary Care Provider Assessment Encounter Date Assessment Date Assessment LastModified by Organization Details LastModified Time 09/11/2024 09/11/2024 Administered By: Geneva Soto Use of Antihistamines: No If yes: Vial Test Change in medications: No If yes ?? Increase in asthma symptoms If yes, inhaler use: Reaction to last injections: No If yes: ?? Allergy Symptoms: Other: ?? Missed 1 week Dose Notes:?? [email or web address] Not available 09/11/2024 11:20:03 Plan of Treatment Reminders Order Date Submit Date Provider Last Modified By Organization Details Last Modified Time Details Appointments [facility]- Allergy f-up 6mon 2024 03:00P M MICHELLE RADFORD MD Not available Not available Not available Lab None recorded . Referral None recorded . Procedures None recorded . Surgeries None recorded . Imaging None recorded . Medication Orders None recorded . Patient TargetsNo targets recorded. Patient InstructionsNo instructions recorded. Reason for Referral None Reported. Results Created Date Observation Date Name Description Value Unit Range Abnormal Flag Note LastModifiedBy Organization Detail LastModifiedTime 08/14/[address], sinus es, w/o contr ast No observ ation record ed. [email or web address] Ents Of [address], [address], 08/14/2024 10:24:08 Result Notes None recorded. Problems Name Problem SNOMED Code Status Onset Date Resolution Date Notes Provider Name and Address Organization Details Recorded Time Allergic rhinitis 16588220 Active 2023 MICHELLE RADFORD MD [address] [facility], [place], [address], [facility] - [facility] [place] 4 10:47:14 Polyp of nasal cavity 763754084 Active 2023 MICHELLE RADFORD MD [address] [facility], [place], [address], [facility] - [facility] [place] 4 10:47:20 Deviated nasal septum 255711821 Active 2023 MICHELLE RADFORD MD [address] [facility] [place], [place], [address], [place] - [facility] [place] 4 10:47:32 Mild intermittent asthma 406403548 Active 2023 MICHELLE RADFORD MD 100 [facility],[address], [place], [address], [facility] - [facility] [place] 4 10:47:37 Chronic sinusitis 48358339 Active 2023 MICHELLE RADFORD MD 100 [facility], [place], [address], [facility] - [facility] 4 10:48:43 Nasal congestion 55895444 Active 2023 MICHELLE RADFORD MD 100 [facility],[address], [place], [address], [facility] - [facility] [place] 4 09:41:01 Perennial allergic rhinitis 679285862 Active 2023 MANSI HERRERA [address] [facility], [place], [address], [facility] - [facility] [place] 4 15:32:05 Problem Notes None recorded. Procedures Surgical History Date Name Laterality Status Provider Name and Address Organization Details Recorded Time 09/17/20 24 Allergy Immunotherapy Injections completed SAGE SHAFFER RN 100 [facility],[address] [address], [place], [address], [facility] - [facility] 09/17/2024 16:06:43 09/11/20 24 Allergy Immunotherapy Injections completed GENEVA SOTO [facility] [address] [facility] [place],[place] [address] [place] [address], [address], [facility] - [facility] 09/11/2024 11:19:42 09/05/20 24 Allergy Immunotherapy Injections completed GENEVA SOTO [facility] [address] [facility] [place],[place] [address] [place] [address], [address], [facility] - [facility] 09/05/2024 10:17:58 08/26/20 24 Allergy Immunotherapy Injections completed GENEVA SOTO [facility] [address] [facility] [place], [place], [address], [facility] - [facility] 08/26/2024 16:07:13 06/28/20 24 Allergy Testing-Full completed DARSHAN ELIZABETH [facility] [address] [facility] [place],[address], [address], [facility] - [facility] 06/28/2024 11:23:07 06/19/20 24 JMSNasal/Sinus Endoscopy completed MICHELLE BUCKLEY MD 100 [facility],[address], [address], [facility] - [facility] 06/19/2024 10:47:04 Imaging Results None recorded. Procedure Notes None recorded. Medical Equipment None Reported. Allergies No known drug allergies Medications Name Sig Start Date Stop Date Status Note LastModified by Organization Details LastModified Time amlodipine 5 mg tablet TOME BARBARA TABLETA POR V A ORAL TODOS LOS D active Not Available Not Available No t Available amlodipine 10 mg tablet TOME BARBARA TABLETA POR V A ORAL TODOS LOS D 06/19 completed Not Available Not Available Not Available triamcinolo ne acetonide 55 mcg nasal spray aerosol USE 2 SPRAYS IN EACH NOSTRIL ONCE DAILY active Not Available Not Available No t Available montelukast 10 mg tablet TOME 1 TABLETA POR V A ORAL TODOS LOS D active Not Available Not Available No t Available azelastine 137 mcg (0.1 %) nasal spray USE 2 SPRAYS NASALLY TWICE A DAY DIRECTED 09/04 /2024 completed Not Available Not Available Not Available epinephrine 0.3 mg/0.3 mL injection, auto-inject or INJECT DIRECTED FOR ANAPHYLAX IS active Not Available Not Available No t Available fluticasone propionate 50 mcg/actuati on nasal spray,suspe nsion SPRAY 2 PUFFS EN CADA VENTANILL A DE LA NARIZ ONCE A DAY 06/19 completed Not Available Not Available Not Available doxycycline hyclate 100 mg tablet TOME 1 TABLETA POR V A ORAL DOS VECES AL D A POR 10 D active Not Available Not Available No t Available hydrochloro thiazide 12.5 mg tablet TOME BARBARA TABLETA POR V A ORAL TODOS LOS D 06/19 completed Not Available Not Available Not Available Vitals None Recorded Social History None recorded. Functional Status None recorded. Mental Status None recorded. Family History Nothing Reported. Medical History Condition Response Hypertension Y Past Encounters Encounter ID Performer Location Encounter Start Date Encounter Closed Date Diagnosis/Indication Diagnosis SNOMED-CT Code Diagnosis ICD10 Code [id number] MICHELLE MATTHEWS MD [facility] [address] [address] 08/14/2024 09:24:12 08/14/2024 10:27:18 Allergic rhinitis 73279545 J30.9 Nasal congestion 7918258 0 R09.81 Chronic sinusitis 877532 00 J32.9 [id number] GENEVA SOTO [facility] Allergy [address] [place] [address] 08/26/2024 15:25:17 08/26/2024 16:21:36 Perennial allergic rhinitis 256287006 J30.89 Allergic rhinitis 356757 04 J30.9 [id number] GENEVA SOTO [facility] Allergy [address] [place] [address] 09/05/2024 10:06:14 09/05/2024 10:29:54 Perennial allergic rhinitis 609019779 J30.89 [id number] GENEVA SOTO [address] [address] 09/11/2024 10:55:42 09/11/2024 11:20:24 Perennial allergic rhinitis 824744957 J30.89 Health Concerns Section Related Observation LastModified by Organization Detai ls LastModified Time None Recorded Concern Status LastModified by Organization Details LastModified Time None Recorded Payers Encounter Date Sequence Insurance Name Policy Number Policy Hobbs Covered Member ID Hobbs Member ID Guarantor Name 09/11/2024 1 [facility] NET PLAN (MEDICAID HMO) AURELIA Patel [id number] Gabe Patel
--- OUTSIDE RECORDS SUMMARY | 2024-09-25 16:10 | XMS_ITS | Data Portability ---
Author Organization [place] - [facility], Allergy Address [address] [address] Care Team Providers Care Coronary Clinical Specialist Name Role Phone RUTH FERNANDES Primary Care Provider [phone] Assessment Encounter Date Assessment Date Assessment LastModified by Organization Details LastModified Time 08/14/2024 08/14/2024 Patient with chronic nasal congestion reduced sense of smell and reduced nasal breathing. He had significant dog And mold allergy noted. He has 2 dogs at home. Did not feel that his congestion was improved with fluticasone or Astelin spray. He has been using the montelukast intermittently. CT scan performed today shows scattered mucosal thickening and a right gordo bullosa. No discrete polyps [email or web address] Not available 08/14/2024 10:23:19 08/26/2024 08/26/2024 Administered By: Geneva Soto Use of Antihistamines: No If yes: Vial Test Yes Change in medications: No If yes ?? Increase in asthma symptoms If yes, inhaler use: Reaction to last injections: If yes: ?? Allergy Symptoms: Other: ?? Missed 1 week Dose Notes:?? Not available 08/26/2024 16:07:39 09/05/2024 09/05/2024 Administered By: Geneva Soto Use of Antihistamines: No If yes: Vial Test Change in medications: No If yes ?? Increase in asthma symptoms If yes, inhaler use: Reaction to last injections: No If yes: ?? Allergy Symptoms: Other: ?? Missed 1 week Dose Notes:?? Not available 09/05/2024 10:18:03 09/11/2024 09/11/2024 Administered By: Geneva Soto Use of Antihistamines: No If yes: Vial Test Change in medications: No If yes ?? Increase in asthma symptoms If yes, inhaler use: Reaction to last injections: No If yes: ?? Allergy Symptoms: Other: ?? Missed 1 week Dose Notes:?? [email or web address] Not available 09/11/2024 11:20:03 09/17/2024 09/17/2024 Administered By: Sage Shaffer RN Use of Antihistamines: No If yes: Vial Test Change in medications: No If yes ?? Increase in asthma symptoms No If yes, inhaler use: Reaction to last injections: No If yes: ?? Allergy Symptoms: Other: ?? Missed 1 week Dose Notes:?? [email or web address] Not available 09/17/2024 16:06:52 Plan of Treatment Reminders Order Date Submit Date Provider Last Modified By Organization Details Last Modified Time Details Appointments [facility]- Allergy f-up 6mon 2024 03:00P M MICHELLE RADFORD MD Not available Not available Not available Lab None recorde d. Referral None recorde d. Procedures allerge n immunot herapy; multipl e injecti ons (PROC) 2023 [email or web address] Not available 08/21/2024 09:50:46 Surgeries None recorde d. Imaging CT, sinuses , w/o contras t 2023 024 [facility], [address] [place] [address], [address], 08/14/2024 10:27:19 Medication Orders Nasacor t 55 mcg nasal spray aerosol 2023 [facility]1972, [address] [place], [address], 08/14/2024 10:24:14 epineph rine 0.3 mg/0.3 mL injecti on, auto-in jector 2023 [facility]1972, [address] [place], [address], 08/14/2024 10:24:48 doxycyc line hyclate 100 mg tablet 2023 024 [facility]1972, [address] [facility], [place], [address], 08/14/2024 10:24:12 Patient TargetsNo targets recorded. Patient Instructions Encounter Date Encounter Id Patient Instructions Last Modified By Organization Details Last Modified Time 08/26/2024 [id number] allergy shots: care instructions [email or web address] Not available 08/26/2024 16:08:36 Reason for Referral None Reported. Results Created Date Observation Date Name Description Value Unit Range Abnormal Flag Note LastModifiedBy Organization Detail LastModifiedTime 08/14/[address], sinus es, w/o contr ast No observ ation record ed. [email or web address] Ents Of [address], [address], 08/14/2024 10:24:08 Result Notes None recorded. Problems Name Problem SNOMED Code Status Onset Date Resolution Date Notes Provider Name and Address Organization Details Recorded Time Allergic rhinitis 46239603 Active 2023 MICHELLE RADFORD MD [address] [place] [address], [place], [address], [facility] - [facility] [place] 4 10:47:14 Polyp of nasal cavity 845653998 Active 2023 MICHELLE RADFORD MD [address] [place] [address], [place], [address], [facility] - [facility] [place] 4 10:47:20 Deviated nasal septum 230682947 Active 2023 MICHELLE RADFORD MD [address] [place] [address], [place], [address], [facility] - [facility] [place] 4 10:47:32 Mild intermittent asthma 967345150 Active 2023 MICHELLE RADFORD MD [address] [place] [address], [place], [address], [facility] - [facility] [place] 4 10:47:37 Chronic sinusitis 40851059 Active 2023 MICHELLE RADFORD MD [address] [facility],[place] [address], [place], [address], [facility] - [facility] [place] 4 10:48:43 Nasal congestion 45520642 Active 2023 MICHELLE RADFORD MD [address] [facility],[place] [address], [place], [address], [facility] - [facility] [place] 4 09:41:01 Perennial allergic rhinitis 345357261 Active 2023 MANSI HERRERA [address] [facility],[place] [address], [place], [address], [facility] - [facility] [place] 4 15:32:05 Problem Notes None recorded. Procedures Surgical History Date Name Laterality Status Provider Name and Address Organization Details Recorded Time 09/17/20 24 Allergy Immunotherapy Injections completed SAGE SHAFFER RN [address] [facility],[address], [address], [facility] - [facility] 09/17/2024 16:06:43 09/11/20 24 Allergy Immunotherapy Injections completed MANSI HERRERA [address] [place] [address],[address], [address], [facility] - [facility] 09/11/2024 11:19:42 09/05/20 24 Allergy Immunotherapy Injections completed MANSI HERRERA [address] [place] [address],[address], [address], [facility] - [facility] 09/05/2024 10:17:58 08/26/20 24 Allergy Immunotherapy Injections completed MANSI HERRERA [address] [place] [address],[address], [address], [facility] - [facility] 08/26/2024 16:07:13 06/28/20 24 Allergy Testing-Full completed MANSI PATTERSON [address] [facility],[address], [address], [facility] - [facility] 06/28/2024 11:23:07 06/19/20 24 JMSNasal/Sinus Endoscopy completed MICHELLE BUCKLEY MD [address] [place] [address], [address], [facility] - [facility] 06/19/2024 10:47:04 Imaging Results Imaging Date Name Status LastModified by Organiz ation Details LastModified Time 08/14/2024 CT, sinuses, w/o contrast completed venessa [facility] [address] [place], [address], 08/14/2024 10:24:08 Procedure Notes None recorded. Medical Equipment None [...] 2 SPRAYS NASALLY TWICE A DAY DIRECTED 06/19 completed Not Available Not Available Not [...] Not Available Not Available Not Available Vitals Date Recorded Body height Body mass index (BMI) Body weight Systolic blood pressure Diastolic blood pressure Provider Name and Address Organization Details Last Updated DateTime 08/14/2024 162.56 cm 29.5 kg/m2 58924.89 g 128 mm[Hg] 76 mm[Hg] Aura Finn [place] - [facility] 4 09:50:26 Date Recorded Heart rate Oxygen saturation Oxygen saturation in Arterial blood by Pulse oximetry Systolic blood pressure Diastolic blood pressure Provider Name and Address Organization Details Last Updated DateTime 4 80 /min 97 % 97 % 137 mm[Hg] 86 mm[Hg] GENEVA SOTO [place] [address], [place], [address], MICHELLE - [facility] 4 15:39:31 Social History None recorded. Functional Status None recorded. Mental Status None recorded. Family History Nothing Reported. Medical History Condition Response Hypertension Y Past Encounters Encounter ID Performer Location Encounter Start Date Encounter Closed Date Diagnosis/Indication Diagnosis SNOMED-CT Code Diagnosis ICD10 Code [id number] MICHELLE MATTHEWS MD [facility] [address] [address] 06/19/2024 10:02:26 06/19/2024 11:01:12 Allergic rhinitis 39127124 J30.9 Polyp of nasal cavity 73 8567496 J33.0 Deviated nasal septum 12 7774578 J34.2 Mild inter mittent asthma 916228463 J45.20 Chronic sinusitis 035429 00 J32.9 [id number] SAGE SHAFFER RN Allergy [address] [place] [address] 06/19/2024 11:44:49 06/19/2024 11:46:11 Allergic rhinitis 95582807 J30.9 [id number] DARSHAN ELIZABETH [facility] Allergy [address] [place] [address], [place] [address] 06/28/2024 10:09:30 06/28/2024 12:17:12 Allergic rhinitis 31496847 J30.9 [id number] MICHELLE MATTHEWS MD [facility] [address] [address] 08/14/2024 09:24:12 08/14/2024 10:27:18 Allergic rhinitis 01615795 J30.9 Nasal congestion 3408496 0 R09.81 Chronic sinusitis 662968 00 J32.9 [id number] GENEVA MEGHAN [facility] Allergy [address] [place] [address] 08/26/2024 15:25:17 08/26/2024 16:21:36 Perennial allergic rhinitis 059589677 J30.89 Allergic rhinitis 659627 04 J30.9 [id number] GENEVA SOTO [facility] Allergy [address] [place] [address] 09/05/2024 10:06:14 09/05/2024 10:29:54 Perennial allergic rhinitis 286331434 J30.89 [id number] GENEVAANN SOTO [facility] Allergy [address] [place] [address] 09/11/2024 10:55:42 09/11/2024 11:20:24 Perennial allergic rhinitis 867852590 J30.89 [id number] SAGE SHAFFER RN Allergy [address], [address] [place] [address] 09/17/2024 15:36:57 09/17/2024 16:07:09 Perennial allergic rhinitis 734430642 J30.89 Health Concerns Section Related Observation LastModified by Organization Detai ls LastModified Time None Recorded Concern Status LastModified by Organization Details LastModified Time None Recorded Advance Directives Directive None Recorded Payers Encounter Date Sequence Insurance Name Policy Number Policy Hobbs Covered Member ID Hobbs Member ID Guarantor Name 08/14/2024 1 [facility] NET PLAN (MEDICAID HMO) AURELIA Patel [id number] Gabe Patel 08/26/2024 1 [facility] NET PLAN (MEDICAID HMO) AURELIA Patel [id number] Gabe Patel 09/05/2024 1 [facility] NET PLAN (MEDICAID HMO) AURELIA Patel [id number] Gabe Patel 09/11/2024 1 [facility] PLAN (MEDICAID HMO) AURELIA Myers Jorge [id number] Gabe Myers Jorge 09/17/2024 1 [facility] PLAN (MEDICAID HMO) AURELIA Patel [id number] Gabe yMers Jorge Notes Date Note Type Note Provider Name and Address Organization Details Recorded Time 08/14/2024 text/html Patient with chronic nasal congestion reduced sense of smell and reduced nasal breathing. He had significant dog And mold allergy noted. He has 2 dogs at home. Did not feel that his congestion was improved with fluticasone or Astelin spray. He has been using the montelukast intermittently. CT scan performed today MICHELLE BUCKLEY MD [address] [place] [address], [place], [address], [facility] - [facility] 08/14/2024 10:25:22
--- OUTSIDE RECORDS SUMMARY | 2024-09-25 16:10 | XMS_ITS | Continuity of Care Document ---
Author Organization [place] [facility], Allergy Address [address] [place] [address] Care Team Providers Care Workers Compensation Claims Analyst Name Role Phone RUTH FERNANDES Primary Care Provider Assessment Encounter Date Assessment Date Assessment LastModified by Organization Details LastModified Time 09/05/2024 09/05/2024 Administered By: Geneva Soto Use of Antihistamines: No If yes: Vial Test Change in medications: No If yes ?? Increase in asthma symptoms If yes, inhaler use: Reaction to last injections: No If yes: ?? Allergy Symptoms: Other: ?? Missed 1 week Dose Notes:?? [email or web address] Not available 09/05/2024 10:18:03 Plan of Treatment Reminders Order Date Submit Date Provider Last Modified By Organization Details Last Modified Time Details Appointments [facility]- Allergy f-up 6mon 2024 03:00P M MICHELLE [...] observ ation record ed. [email or web address] Ents Of [address], [address], 08/14/2024 10:24:08 Result Notes None recorded. Problems Name Problem SNOMED Code Status Onset Date Resolution Date Notes Provider Name and Address Organization Details Recorded Time Allergic rhinitis 44253644 Active 2023 MICHELLE RADFORD MD [address] [facility], [facility] [place], [address], [facility] - [facility] [place] 4 10:47:14 Polyp of nasal cavity 226949443 Active 2023 MICHELLE RADFORD MD [address] [facility], [facility] [place], [address], [facility] - [facility] [place] 4 10:47:20 Deviated nasal septum 426406585 Active 2023 MICHELLE RADFORD MD [address] [facility], [facility] [place], [address], [place] - [facility] [place] 4 10:47:32 Mild intermittent asthma 891387028 Active 2023 MICHELLE RADFORD MD 100 [facility],[address], [place], [address], [facility] - [facility] [place] 4 10:47:37 Chronic sinusitis 14256402 Active 2023 MICHELLE RADFORD MD 100 [facility], [address], [facility] [place], [address], [facility] - [facility] 4 10:48:43 Nasal congestion 60968847 Active 2023 MICHELLE RADFORD MD 100 [facility],[address], [facility] [place], [address], [facility] - [facility] [place] 4 09:41:01 Perennial allergic rhinitis 922880764 Active 2023 MANSI HERRERA [address] [facility], [place], [address], [facility] - [facility] [place] 4 15:32:05 Problem Notes None recorded. Procedures Surgical History Date Name Laterality Status Provider Name and Address Organization Details Recorded Time 09/17/20 24 Allergy Immunotherapy Injections completed SAGE SHAFFER RN 100 [facility],[place] [address], [place], [address], [facility] - [facility] 09/17/2024 16:06:43 09/11/20 24 Allergy Immunotherapy Injections completed GENEVA SOTO [facility] 100 [facility],[place] [address] [place] [address], [address], [facility] - [facility] 09/11/2024 11:19:42 09/05/20 24 Allergy Immunotherapy Injections completed GENEVA SOTO [facility] [address] [facility],[place] [address] [place] [address], [address], [facility] - [facility] 09/05/2024 10:17:58 08/26/20 24 Allergy Immunotherapy Injections completed GENEVA SOTO [facility] 100 [facility], [place], [address], [facility] - [facility] 08/26/2024 16:07:13 06/28/20 24 Allergy Testing-Full completed DARSHAN ELIZABETH [facility] 100 [facility],[address], [address], [facility] - [facility] 06/28/2024 11:23:07 06/19/20 24 JMSNasal/Sinus Endoscopy completed MICHELLE BUCKLEY MD 100 [facility],[address], [address], [facility] - [facility] 06/19/2024 10:47:04 Imaging Results None recorded. Procedure [...] Diagnosis/Indication Diagnosis SNOMED-CT Code Diagnosis ICD10 Code [id number] MICHELLE MATTHEWS MD [facility] [address] [place] [address] 08/14/2024 09:24:12 08/14/2024 10:27:18 Allergic rhinitis 94730346 J30.9 Nasal congestion 8408189 0 R09.81 Chronic sinusitis 970339 00 J32.9 [id number] GENEVA SOTO [facility] [address] [place] [address] 08/26/2024 15:25:17 08/26/2024 16:21:36 Perennial allergic rhinitis 650398971 J30.89 Allergic rhinitis 661031 04 J30.9 [id number] GENEVA SOTO [facility] [address] [place] [address] 100 [place] [address] 09/05/2024 10:06:14 09/05/2024 10:29:54 Perennial allergic rhinitis 708356293 J30.89 Health Concerns Section Related Observation LastModified by Organization Detai ls LastModified Time None Recorded Concern Status LastModified by Organization Details LastModified Time None Recorded Payers Encounter Date Sequence Insurance Name Policy Number Policy Hobbs Covered Member ID Hobbs Member ID Guarantor Name 09/05/2024 1 [facility] - HEALTH NET PLAN (MEDICAID HMO) AURELIA Patel [id number] Gabe Patel
--- OUTSIDE RECORDS SUMMARY | 2024-09-25 16:10 | XMS_ITS | Continuity of Care Document ---
Author Organization [place] - [facility], Allergy Address [address] [place] [address] Care Team Providers Care Tube Winder Name Role Phone RUTH FERNANDES Primary Care Provider Assessment Encounter Date Assessment Date Assessment LastModified by Organization Details LastModified Time 09/17/2024 09/17/2024 Administered By: Sage Shaffer RN [...] Organization Details Last Modified Time Details Appointments [facility] Allergy f-up 6mon 2024 03:00P M MICHELLE RADFORD MD Not available Not available Not available Lab None recorded . Referral None recorded . Procedures None recorded . Surgeries None recorded . Imaging None recorded . Medication Orders None recorded . Patient TargetsNo targets recorded. Patient InstructionsNo instructions recorded. Reason for Referral None Reported. Problems Name Problem SNOMED Code Status Onset Date Resolution Date Notes Provider Name and Address Organization Details Recorded Time Allergic rhinitis 22557336 Active 2023 MICHELLE RADFORD MD [address] [place] [address], [place], [address], [facility] - [facility] 10:47:14 Polyp of nasal cavity 706932685 Active 2023 MICHELLE RADFORD MD [address] [place] [address], [place], [address], [place] [facility] [place] 4 10:47:20 Deviated nasal septum 140542152 Active 2023 MICHELLE RADFORD MD 100 [facility], [facility], [place], [address], [facility] - [facility] [place] 4 10:47:32 Mild intermittent asthma 994779301 Active 2023 MICHELLE RADFORD MD 100 [facility], [address] [facility], [place], [address], [facility] - [facility] [place] 4 10:47:37 Chronic sinusitis 20348669 Active 2023 MICHELLE RADFORD MD 100 [facility], [address] [facility], [place], [address], [place] [facility] [place] 4 10:48:43 Nasal congestion 08566510 Active 2023 MICHELLE RADFORD MD 100 [facility], [facility], [place], [address], [place] [facility] [place] 4 09:41:01 Perennial allergic rhinitis 250784846 Active 2023 MANSI HERRERA 100 [facility], [address] [facility], [place], [address], [place] [facility] [place] 4 15:32:05 Problem Notes None recorded. Procedures Surgical History Date Name Laterality Status Provider Name and Address Organization Details Recorded Time 09/17/20 24 Allergy Immunotherapy Injections completed SAGE SHAFFER RN 100 [facility],[address], [address], [place] [facility] [place] 09/17/2024 16:06:43 09/11/20 24 Allergy Immunotherapy Injections completed MANSI HERRERA 100 [facility],[address], [address], [facility] - [facility] [place] 09/11/2024 11:19:42 09/05/20 24 Allergy Immunotherapy Injections completed MANSI HERRERA 100 [facility],[address], [address], [facility] - [facility] 09/05/2024 10:17:58 08/26/20 24 Allergy Immunotherapy Injections completed EARL CHRISTIANSON, [facility] 100 [facility],[place] [address], [place], [address], [facility] - [facility] 08/26/2024 16:07:13 06/28/20 24 Allergy Testing-Full completed DARSHAN ELIZABETH, [facility] 100 [facility], [place], [address], [facility] - [facility] 06/28/2024 11:23:07 06/19/20 24 JMSNasal/Sinus Endoscopy completed MICHELLE BUCKLEY MD 100 [facility],[address], [address], [facility] - [facility] 06/19/2024 10:47:04 Imaging Results None recorded. [...] Diagnosis/Indication Diagnosis SNOMED-CT Code Diagnosis ICD10 Code [id number] EARL CHRISTIANSON [facility] [place],[address] [place] [address] 08/26/2024 15:25:17 08/26/2024 16:21:36 Perennial allergic rhinitis 093155773 J30.89 Allergic rhinitis 654495 04 J30.9 [id number] EARL CHRISTIANSON [facility] 100 [facility],[address] [place] [address] 09/05/2024 10:06:14 09/05/2024 10:29:54 Perennial allergic rhinitis 101855750 J30.89 [id number] EARL CHRISTIANSON [facility] 100 [facility],[address] [place] [address] 09/11/2024 10:55:42 09/11/2024 11:20:24 Perennial allergic rhinitis 887433907 J30.89 [id number] SAGE SHAFFER RN Allergy 100 [facility],[address] [place] [address] 09/17/2024 15:36:57 09/17/2024 16:07:09 Perennial allergic rhinitis 896702465 J30.89 Health Concerns Section Related Observation LastModified by Organization Detai ls LastModified Time None Recorded Concern Status LastModified by Organization Details LastModified Time None Recorded Payers Encounter Date Sequence Insurance Name Policy Number Policy Hobbs Covered Member ID Hobbs Member ID Guarantor Name 09/17/2024 1 [facility] [employer] - HEALTH NET PLAN (MEDICAID HMO) AURELIA Patel [id number] Gabe Patel
--- OUTSIDE RECORDS SUMMARY | 2024-09-25 16:11 | XMS_ITS | Continuity of Care Document ---
Author Organization [place] - [facility] Allergy Address [address] [place] [address] Care Team Providers Care Supervisor Poultry Farm Name Role Phone RUTH FERNANDES Primary Care Provider Assessment Encounter Date Assessment Date Assessment LastModified by Organization Details LastModified Time 08/26/2024 08/26/2024 Administered By: Geneva Soto Use of Antihistamines: No If yes: Vial Test Yes Change in medications: No If yes ?? Increase in asthma symptoms If yes, inhaler use: Reaction to last injections: If yes: ?? Allergy Symptoms: Other: ?? Missed 1 week Dose Notes:?? [email or web address] Not available 08/26/2024 16:07:39 Plan of Treatment Reminders Order Date Submit Date Provider Last Modified By Organization Details Last Modified Time Details Appointments [facility]- Allergy f-up 6mon 2024 03:00P M MICHELLE RADFORD MD Not available Not available Not available Lab None recorded . Referral None recorded . Procedures None recorded . Surgeries None recorded . Imaging None recorded . Medication Orders None recorded . Patient TargetsNo targets recorded. Patient Instructions Encounter Date Encounter Id Patient Instructions Last Modified By Organization Details Last Modified Time 08/26/2024 [id number] allergy shots: care instructions [email or web address] Not available 08/26/2024 16:08:36 Reason for Referral None Reported. Results Created Date Observation Date Name Description Value Unit Range Abnormal Flag Note LastModifiedBy Organization Detail LastModifiedTime 08/14/[address], sinus es, w/o contr ast No observ ation record ed. [email or web address] Ents [address], [address], 08/14/2024 10:24:08 Result Notes None recorded. Problems Name Problem SNOMED Code Status Onset Date Resolution Date Notes Provider Name and Address Organization Details Recorded Time Allergic rhinitis 25318792 Active 2023 MICHELLE RADFORD MD [address], [place], [address], [facility] - [facility] [place] 4 10:47:14 Polyp of nasal cavity 891360690 Active 2023 MICHELLE RADFORD MD [address] [facility] [address], [place], [address], [facility] - [facility] [place] 4 10:47:20 Deviated nasal septum 264871235 Active 2023 MICHELLE RADFORD MD [address] [facility] [address], [place], [address], [facility] - [facility] [place] 4 10:47:32 Mild intermittent asthma 309445935 Active 2023 MICHELLE RADFORD MD [address] [facility] [place],[address], [place], [address], [facility] - [facility] [place] 4 10:47:37 Chronic sinusitis 46473648 Active 2023 MICHELLE RADFORD MD [address], [place], [address], [facility] - [facility] [place] 4 10:48:43 Nasal congestion 37442829 Active 2023 MICHELLE RADFORD MD [address], [place], [address], [facility] - [facility] [place] 4 09:41:01 Perennial allergic rhinitis 199420546 Active 2023 MANSI HERRERA [address], [place], [address], [facility] - [facility] [place] 4 15:32:05 Problem Notes None recorded. Procedures Surgical History Date Name Laterality Status Provider Name and Address Organization Details Recorded Time 12/03/20 24 Allergy Immunotherapy Injections completed SAGE SHAFFER RN [address] [facility] [place],[address] [facility], [place], [address], [facility] - [facility] 09/17/2024 16:06:43 09/11/20 24 Allergy Immunotherapy Injections completed GENEVA SOTO [facility] [address] [facility] [address],[place] [address] [place] [address], [address], [facility] - [facility] 09/11/2024 11:19:42 09/05/20 24 Allergy Immunotherapy Injections completed GENEVA SOTO [facility] [address] [facility] [address], [place], [address], [facility] - [facility] 09/05/2024 10:17:58 08/26/20 24 Allergy Immunotherapy Injections completed GENEVA SOTO [facility] [address] [facility] [address],[place] [address] [place] [address], [address], [facility] - [facility] 08/26/2024 16:07:13 06/28/20 24 Allergy Testing-Full completed DARSHAN ELIZABETH, [facility] [address] [facility] [address] [facility], [place], [address], [facility] - [facility] 06/28/2024 11:23:07 06/19/20 24 JMSNasal/Sinus Endoscopy completed MICHELLE BUCKLEY MD [address] [facility] [place] [address] [place] [address], [address], [facility] - [facility] 06/19/2024 10:47:04 Imaging Results None recorded. [...] Not Available Not Available Vitals Date Recorded Heart rate Oxygen saturation Oxygen saturation in Arterial blood by Pulse oximetry Systolic blood pressure Diastolic blood pressure Provider Name and Address Organization Details Last Updated DateTime 4 80 /min 97 % 97 % 137 mm[Hg] 86 mm[Hg] MANSI HERRERA [address] [place] [address], [address], [place] - [facility] 15:39:31 Social History None recorded. Functional Status None recorded. Mental Status None recorded. Family History Nothing Reported. Medical History Condition Response Hypertension Y Past Encounters Encounter ID Performer Location Encounter Start Date Encounter Closed Date Diagnosis/Indication Diagnosis SNOMED-CT Code Diagnosis ICD10 Code [id number] MICHELLE MATTHEWS MD [facility] [address] [place] [address] 08/14/2024 09:24:12 08/14/2024 10:27:18 Allergic rhinitis 34655995 J30.9 Nasal congestion 0266103 0 R09.81 Chronic sinusitis 886500 00 J32.9 [id number] MANSI HERRERA [facility] [address] [place] [address] [place] [address], [place] [address] 08/26/2024 15:25:17 08/26/2024 16:21:36 Perennial allergic rhinitis 147978940 J30.89 Allergic rhinitis 764016 04 J30.9 Health Concerns Section Related Observation LastModified by Organization Detai ls LastModified Time None Recorded Concern Status LastModified by Organization Details LastModified Time None Recorded Payers Encounter Date Sequence Insurance Name Policy Number Policy Hobbs Covered Member ID Hobbs Member ID Guarantor Name 08/26/2024 1 [facility] - HEALTH NET PLAN (MEDICAID HMO) [facility] Gabe Patel [id number] Gabe Patel
== END 2024-09-23 14:48 | disposition home or self-care (01) ==
PROVIDERS: PCP Internal Medicine; Visit Provider Internal Medicine
DX: Z00.00 Encounter for general adult medical examination without abnormal findings (principal); I10 Essential (primary) hypertension

== ENCOUNTER → 2024-09-23 14:32 | Outpatient (BNVA) | payer OTHER, SELFPAY | PROVIDERS: PCP Internal Medicine; Visit Provider Internal Medicine | DX: Z00.00 Encounter for general adult medical examination without abnormal findings (principal); I10 Essential (primary) hypertension; M79.673 Pain in unspecified foot | CPT/HCPCS: 96127; 99385 ==

== ENCOUNTER 2025-03-07 11:26 | Outpatient (REF) | payer OTHER, SELFPAY ==
[2025-03-07 13:38] LABS: Appearance Urine Cloudy; Color Urine Yellow; Glucose Urine UA Negative (Negative); Leukocyte Esterase Urine Negative (Negative); Nitrite Urine Negative (Negative); UMIC TRIGGER UACC YES; Urine Blood Trace (Negative); Urine Ketones Negative (Negative); Urine Protein Negative (Neg-Trace)
[2025-03-07 13:45] LABS: Bacteria Urine None Seen (None Seen); Hyaline Casts Urine 0-2 /LPF (0-2); Squamous Epithelial Cell Urine 0-2 /HPF (0-2); WBC Urine 0-5 /HPF (0-5)
[2025-03-07 13:47] LABS: Syphilis Screen Nonreactive (Nonreactive)
[2025-03-07 13:48] LABS: HIV AB/AG Nonreactive (Nonreactive); HIV Num 1 0.06 S/CO (0.00-0.99)
[2025-03-07 14:59] LABS: CT PCR NOT DETECTED (Not Detect.); NG PCR NOT DETECTED (Not Detect.)
== END 2025-03-07 11:27 | disposition home or self-care (01) ==
LOC: HO.LAB 11:26
DX: B35.1 Tinea unguium (principal); N39.0 Urinary tract infection, site not specified; Z11.3 Encounter for screening for infections with a predominantly sexual mode of transmission
CPT/HCPCS: 81001; 81003; 86780; 87389; 87491; 87591; 96127; 99212

== ENCOUNTER 2025-03-07 11:26 | Outpatient (AMB) | payer OTHER, SELFPAY ==
--- OUTSIDE RECORDS SUMMARY | 2025-03-07 11:29 | XMS_ITS | Clinical Summary ---
Author Organization [facility] Address [address] [address] Phone Care Team Providers Care Clinical Neuropsychologist Name Role Phone Manan Murry MD Primary Care Provider [phone] Allergies No known active allergies Medications cetirizine (ZyrTEC) 10 MG tablet TAKE 1 TABLET BY MOUTH ONCE DAILY NEEDED FOR ALLERGY SYMPTOMS 05/12/2021 Active amLODIPine (NORVASC) 10 MG tabletIndicatio ns:Hypertension Take 1 tablet (10 mg total) by mouth 1 (one) time each day 30 tablet 11 09/16/2024 09/16/20 25 Active Active Problems Problem Noted Date Diagnosed Date Hypertension 06/22/2021 Hypertriglyceridemia 11/03/2015 Overweight 10/08/2015 Seasonal allergic rhinitis 10/08/2015 Encounters Date Type Department Care Team Description 02/12/2025 3:45 PM EDT Office Visit [facility] [address] [address] Cherry English ARNP Hypertension (Primary Dx) from Last 3 Months Family History Medical History Relation Comments Cancer Mother Hypertension Mother Relation Status Comments Mother Social History Tobacco Use Types Packs/Day Years Used Date Smoking Tobacco: Never Smokeless Tobacco: Never Tobacco Cessation:Counseling Given: Not Answered Alcohol Use Standard Drinks/Week Comments Yes 0 (1 standard drink = 0.6 oz pur e alcohol) a few times a month Sex and Gender Information Value Date Recorded Sex Assigned at Not on file Legal Sex Male 2:40 PM EDT Gender Identity Not on file Sexual Orientation Not on file Last Filed Vital Signs Vital Sign Reading Time Taken Comments Blood Pressure 110/80 02/12/2025 3:56 PM EDT Pulse 78 02/12/2025 3:56 PM EDT Temperature - - Respiratory Rate - - Oxygen Saturation 95% 09/16/2024 11:03 AM EST Inhaled Oxygen Concentration - - Weight 82.1 kg (181 lb) 02/12/2025 3:56 PM EDT Height 162.6 cm (5' 4 ) 07/14/2021 3:05 PM EDT Body Mass Index 31.07 07/14/2021 3:05 PM EDT Plan of Treatment Health Maintenance Due Date Last Done Comments Hepatitis B Vaccine (1 of 3 - 19+ 3-dose series) 08/08 Pneumococcal Vaccine: Peds ( 0 to 5 Years) and At-Risk Patients (6 to 49 Years) (1 of 2 - PCV) 2004 Influenza Vaccine (Season Ended) 2025 Insurance Medicaid Medicaid Care Teams Clinical Neuropsychologist Relationship Specialty Start Date End Date Manan Murry MD [address] [place] [address] PCP - General Internal Medicine 05/03/21
[2025-03-07 11:49] VITALS: BP 142/86; PULSE 62; TEMP 36.3; O2SAT 97; BMI 31.4
--- NOTE | 2025-03-07 11:49 | MHC.PC.OV ---
Vital Signs 03/07/25 11:49 Height 5 ft 4 in Weight 183 lb 2 oz BMI 31.4 BP 142/86 H Blood Pressure Location Lt brachial Position Sitting Pulse 62 Pulse Source Pulse Oximeter Temp 97.3 F Temp Source Temporal Artery Scan Pulse Oximetry (%) 97 Oxygen Delivery Method Room Air Intake Visit Reasons: STD screening Application Development Specialist Required: No Accompanied by: Self / Same As Patient Allergies No Known Allergies Allergy (Verified 03/07/25 12:09) Tobacco use date assessed: 03/07/25 Dental Screening Dental Screen Date: 03/07/25 Did you have a dental visit in the last 12 months?: Yes Did you have a dental problem in the last 6 months where you did not have access to dental care?: No Was dental information given to patient?: Patient has dentist HPI STD screening HPI Details The patient is a 39-year-old male with past medical history heart palpitation, precordial chest pain obesity, HTN. Initially, it was noted in the patient intake that he is presenting for ENT preop for 03/27/25. The patient reports that he is not here for a preop and that his procedure he is already scheduled. He reports that the reason he is here is because his significant other keep getting UTIs and her provider told her to have her partner get checked. Patient reports that he was asymptomatic and till this news was brought to him and he is not sure if this is all in his head but he has been having some itchiness in his urethra. The patient denies burning, urinary frequency, penile discharge or any other symptoms. Patient also request referral to Podiatry due toenail fungus [facility] Medical History Hypertension Surgical History No history of previous surgery Family History Mother High blood pressure Cancer Father No problems noted. Social History Housing: Apartment Alcohol intake: current Alcohol intake frequency: a few times a month Patient Tobacco Use Status: Never used Tobacco e-Cigarette/Vaping Use: Never Used Second Hand Smoke Exposure: No service: No Current occupational status: employed Cognitive needs: No Hearing needs: No Vision needs: No Questionnaire PHQ-9 Over the last 2 weeks, how often have you been bothered by any of the following problems? 1. Little interest or pleasure in doing things: not at all 2. Feeling down, depressed, or hopeless: not at all 3. Trouble falling or staying asleep, or sleeping too much: not at all 4. Feeling tired or having little energy: not at all 5. Poor appetite or overeating: not at all 6. Feeling bad about yourself - or that you are a failure or have let yourself or your family down: not at all 7. Trouble concentrating on things, such as reading the newspaper or watching television: not at all 8. Moving or speaking so slowly that other people could have noticed. Or the opposite - being so fidgety or restless that you have been moving around a lot more than usual: not at all 9. Thoughts that you would be better off or of hurting yourself in some way: not at all Total score: 0 Depression Screening Interpretation: Negative Depression Screening Done: Yes 89013 - PHQ-9 Billing: Yes Source: Developed by Drs. Abhijeet Nunn, Mary Baker, Sherwin Kaminski and colleagues, with an educational valarie from [employer]. Thrive Questionnaire Date Thrive assessed: 03/07/25 I am a: Patient What is your living situation today?: I have a steady place to live Within the past 12 months, did the food you bought not last and you didn't have the money to get more?: Never true Within the past 12 months, did you worry whether your food would run out before you got money to buy more?: Never true Do you have trouble paying for medicines?: No Do you have trouble getting transportation to medical appointments?: No Do you have trouble paying your heating and electricity bill?: I choose not to answer this question Do you have trouble taking care of your child, family member or friend?: No Do you have trouble with day-to-day activities such as bathing, preparing meals, shopping, managing finances, etc.?: No Are you currently unemployed and looking for a job?: No Are you interested in more education?: No Please select the resources that you would like help with: None Currently or been in a relationship where the following occur: I choose not to answer THRIVE Score: 0 AUDIT C Alcohol Use Questionnaire (AUDIT-C) 1. How often do you have a drink containing alcohol?: Never 3. How often do you have six or more drinks on one occasion?: Never Total Score: 0 MARVEL-7 AMB Questionnaire MARVEL-7 Date MARVEL - 7 assessed: 03/07/25 Feeling nervous, anxious, or on edge: 0 = Not at all Not being able to stop or control worryin = Not at all Worrying too much about different things: 0 = Not at all Trouble relaxin = Not at all Being so restless that it is hard to sit still: 0 = Not at all Becoming easily annoyed or irritable: 0 = Not at all Feeling afraid as if something awful might happen: 0 = Not at all Total MARVEL-7 score (0-4 normal; 5-9 mild; 10-14 moderate; 15-21 severe): 0 Source: Developed by Drs. Abhijeet Nunn, Mary Baker, Sherwin Kaminski and colleagues, with an educational valarie from [employer]. MARVEL-7 Assessment Billing MARVEL-7 Assessment Tool: MARVEL-7 Assessment 19426 Review of Systems Const Denies headache(s) Eyes Reports no additional complaints ENT Denies vertigo, Denies dizziness, Denies headache(s) and Denies sore throat Card Denies chest pain, Denies leg edema and Denies lightheadedness Resp Denies cough, Denies hemoptysis and Denies wheezing GI Denies abdominal pain, Denies melena, Denies constipation, Denies diarrhea and Denies vomiting Denies dysuria, Denies penile discharge, Denies urinary frequency, Denies urinary urgency and Reports other (Urethral itchiness) Musc Denies arthralgias, Denies joint swelling, Denies numbness and Denies tingling Skin/Breast Reports other (Toenail fungus) Neuro Denies vertigo, Denies dizziness, Denies headache(s), Denies numbness and Denies tingling Aller/Immun Denies wheezing Physical exam (Primary Care) Vital Signs: Last Vital Signs Temp 97.3 F 03/07/25 11:49 Pulse 62 03/07/25 11:49 BP 142/86 H 03/07/25 11:49 Pulse Ox 97 03/07/25 11:49 Oxygen Delivery Method Room Air 03/07/25 11:49 BMI result Body Mass Index 31.4 Tobacco/Smoking Status: Tobacco use Status Tobacco use date assessed 03/07/25 03/07/25 11:54 Patient Tobacco Use Status Never used Tobacco 03/07/25 11:52 Tobacco use type 03/06/23 14:26 e-Cigarette/Vaping Use Never Used 03/07/25 11:52 PHQ-9: PHQ-9 Score PHQ-9: Total score 0 03/07/25 12:13 Depression Screening Interpretation: Negative Thrive Assessment: Date of Thrive Assessment Date Thrive assessed 03/07/25 03/07/25 11:52 Currently or been in a relationship where the following occur: I choose not to answer Const General: healthy appearing, no acute distress, alert and awake Nutritional Appearance: well nourished Orientation/consciousness: oriented to person, oriented to place and oriented to time HENMT Ears: TM's normal bilaterally General nose exam: Normal nasal mucous membranes and turbinates present Eyes Conjunctivae: conjunctivae normal Sclerae: sclerae normal Neck Neck: Yes no lymphadenopathy and Yes no JVD Thyroid: Thyroid normal Carotids: no bruits Resp Effort & Inspection: normal respiratory effort and not tachypneic Auscultation: no crackles, no rales, no rhonchi and no wheezes Cardio Rate: regular rate Rhythm: regular rhythm Heart sounds: no murmurs and normal S1 and S2 GI Palpation (GI): Soft to palpation, nontender, no hepatomegaly and no splenomegaly Auscultation: normal bowel sounds General: Yes no CVA tenderness Male General Exam: Yes normal external exam Penis: normal penis Back/Spine/Pelvis Back: no CVA tenderness Skin General skin exam: no rashes or lesions noted and dry skin Nails: other (Toenail fungus) Neuro General: oriented to person, oriented to place and oriented to time Coding Level of Care Code Est Pt Level 3 (47819) Diagnoses Screening for STD (sexually transmitted disease) Z11.3 Fungal toenail infection B35.1 Additional Codes MARVEL-7 Assessment Billing - MARVEL-7 Assessment Tool: MARVEL-7 Assessment 21698 ([id number]) PHQ-9 - 18700 - PHQ-9 Billing: Yes ([id number]) Time Spent (min) 32 Assessment & Plan Assessment & Plan (1) Screening for STD (sexually transmitted disease): Code(s): Z11.3 - Encounter for screening for infections with a predominantly sexual mode of transmission Category: Medical Plan: HIV, syphilis gonorrhea and chlamydia along with urinalysis ordered. The patient have not had blood work in a while so a comprehensive blood work was ordered. (2) Fungal toenail infection: Code(s): B35.1 - Tinea unguium Category: Medical Plan: The patient was referred to podiatry Orders: Orders HIV Ab/Ag 03/07/25 N39.0 - Urinary tract infection, site not specified, Z11.3 - Encounter for screening for infections with a predominantly sexual mode of transmission UA CC w/rflx Micro + Cult 03/07/25 N39.0 - Urinary tract infection, site not specified, Z11.3 - Encounter for screening for infections with a predominantly sexual mode of transmission CT NG by PCR 03/07/25 N39.0 - Urinary tract infection, site not specified, Z11.3 - Encounter for screening for infections with a predominantly sexual mode of transmission Comprehensive Chrisney. Panel Fast 7 Months I10 - Essential (primary) hypertension, Z00.00 - Encounter for general adult medical examination without abnormal findings TSH reflex Free T4 7 Months I10 - Essential (primary) hypertension, Z00.00 - Encounter for general adult medical examination without abnormal findings Urine Cytology 1 Week R31.9 - Hematuria, unspecified UA CC w/rflx Micro + Cult 1 Week R31.9 - Hematuria, unspecified Trichomonas vag. RNA Ur Male 03/07/25 Z11.3 - Encounter for screening for infections with a predominantly sexual mode of transmission Syphilis Screen 03/07/25 N39.0 - Urinary tract infection, site not specified, Z11.3 - Encounter for screening for infections with a predominantly sexual mode of transmission Complete Blood Count Auto Diff 7 Months I10 - Essential (primary) hypertension, Z00.00 - Encounter for general adult medical examination without abnormal findings Lipid Panel 7 Months I10 - Essential (primary) hypertension, Z00.00 - Encounter for general adult medical examination without abnormal findings UA CC w/rflx Micro + Cult 7 Months I10 - Essential (primary) hypertension, Z00.00 - Encounter for general adult medical examination without abnormal findings Vitamin D 25-OH Total 7 Months I10 - Essential (primary) hypertension, Z00.00 - Encounter for general adult medical examination without abnormal findings Glucose Fasting 7 Months I10 - Essential (primary) hypertension, Z00.00 - Encounter for general adult medical examination without abnormal findings Referrals Podiatry Referral B35.1 - Tinea unguium
== END 2025-03-07 12:34 | disposition home or self-care (01) ==
LOC: HO.HMCH 11:27
DX: Z11.3 Encounter for screening for infections with a predominantly sexual mode of transmission (principal); B35.1 Tinea unguium

== ENCOUNTER 2025-03-14 10:47 | Outpatient (REF) | payer OTHER, SELFPAY ==
[2025-03-14 11:35] LABS: Urine Cytology See Pathology rpt
--- OUTSIDE RECORDS SUMMARY | 2025-03-14 11:36 | XMS_ITS | Clinical Summary ---
Author Organization [facility] Address [address] [address] Phone Care Team Providers Care Skirt Maker Name Role Phone Manan Murry MD Primary Care Provider [phone] Allergies No known active allergies Medications cetirizine [...] Visit [facility] [address] [address] Cherry English ARNP Hypertension (Primary [...] Ended) 2025 Insurance Medicaid Medicaid Care Teams Skirt Maker Relationship Specialty Start Date End Date Manan Murry MD [address] [place] [address] PCP - General Internal Medicine 05/03/21
[2025-03-14 11:47] LABS: Appearance Urine Clear; Color Urine Yellow; Glucose Urine UA Negative (Negative); Leukocyte Esterase Urine Negative (Negative); Nitrite Urine Negative (Negative); Specific Gravity - Urine 1.015 (1.005-1.025); Urine Blood Negative (Negative); Urine Ketones Negative (Negative); Urine Protein Negative (Neg-Trace)
== END 2025-03-14 10:48 | disposition home or self-care (01) ==
LOC: HO.LAB 10:47
DX: Z11.3 Encounter for screening for infections with a predominantly sexual mode of transmission (principal); N39.0 Urinary tract infection, site not specified; R31.9 Hematuria, unspecified
CPT/HCPCS: 81003; 88112

== ENCOUNTER → 2025-04-24 08:39 | Outpatient (BNVA) | payer OTHER, SELFPAY | DX: Z01.30 Encounter for examination of blood pressure without abnormal findings (principal) | CPT/HCPCS: 99211 ==

== ENCOUNTER 2025-07-08 12:49 | Outpatient (AMB) | payer OTHER, SELFPAY ==
--- NOTE | 2025-07-08 12:51 | A.OFFVIS_ITS ---
Intake Visit Reasons: microscopic hematuria Intake Note: New Patient is present for micro- hematuria Urology Rx: none Blood Thinners:none Imaging completed: none Smoker : no Poultry Hatchery Man Required: Yes Poultry Hatchery Man Services: Poultry Hatchery Man Present Accompanied by: Self / Same As Patient Allergies No Known Allergies Allergy (Verified 07/08/25 12:52) HPI Comments Details: Gabe is a pleasant Tristanian-speaking male. He is a patient of Dr. Akhtar. 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 Social History Housing: Apartment Alcohol intake: current Alcohol intake frequency: a few times a month Patient Tobacco Use Status: Never used Tobacco e-Cigarette/Vaping Use: Never Used Second Hand Smoke Exposure: No service: No Current occupational status: employed Cognitive needs: No Hearing needs: No Vision needs: No Review of Systems Const Denies chills and Denies fever(s) Card Reports no additional complaints and Denies syncope Resp Denies cough GI Denies abdominal pain and Denies heartburn Reports as per HPI and Denies change in libido Neuro Denies syncope Psych Denies change in libido Endo Denies change in libido Physical Exam Const General: cooperative, healthy appearing, comfortable and no acute distress Orientation/consciousness: patient oriented x3 HEENT Face and sinus: Yes normal facial exam Mouth: moist mucous membranes Neck Neck: Yes normal visual inspection, Yes full ROM and Yes trachea midline Chest Chest palpation & inspection: normal inspection of the chest Resp Effort & Inspection: normal respiratory effort, able to speak in complete sentences and no respiratory distress GI Inspection: Yes normal to inspection Back/Spine/Pelvis Cervical Spine: normal cervical lordosis Thoracic/Lumbar Spine: thoracic and lumbar spine normal to inspection Skin General skin exam: no rashes or lesions noted Neuro General: patient oriented x3, gait normal, tone normal and moves all extremities Extrem General: Yes normal to inspection and Yes capillary refill normal Assessment & Plan Assessment & Plan (1) Hematuria: Code(s): R31.9 - Hematuria, unspecified Category: Medical Plan Six-month follow-up renal ultrasound Orders: Orders US renal BI 6 Months R31.9 - Hematuria, unspecified Patient Instructions: This note is constructed using voice recognition software. While every effort has been made to ensure accuracy marine steward errors may have been included. Imaging studies, laboratory and physical exam results were discussed and reviewed in detail. No major barriers to patient understanding were identified. An opportunity to ask questions regarding the treatment plan was provided. All questions were answered. The patient expressed understanding and agreement with the above treatment plan. The patient is aware they should contact our office by phone for worsening of their current condition or the appearance of new urologic symptoms. Compliance is encouraged with any medications and followup testing that is ordered. It is a privilege to participate in the urologic care of your patient. If you have any questions or concerns regarding treatment for the above conditions, or other urologic issues, please do not hesitate to contact me. The office telephone contact is [phone]. Sincerely, Dr Sheng Evans MD, [facility] - Urology Compassionate Specialist Care for the Genitourinary System Coding Level of Care Code New Pt Level 3 (85998) Diagnoses Hematuria R31.9
--- OUTSIDE RECORDS SUMMARY | 2025-07-08 15:41 | XMS_ITS | Clinical Summary ---
Author Organization [facility] Address [address] [address] Phone Care Team Providers Care Commercial Energy Rater Name Role Phone Manan Murry MD Primary Care Provider Allergies No known active allergies Medications cetirizine [...] 11/03/2015 Overweight 10/08/2015 Seasonal allergic rhinitis 10/08/2015 Family History Medical History Relation Comments Cancer [...] of 2 - PCV) 2004 Influenza Vaccine (#1) 2025 Insurance Care Teams Commercial Energy Rater Relationship Specialty Start Date End Date Manan Murry MD [address] [place], [place] PCP - General Internal Medicine 05/03/21
--- OUTSIDE RECORDS SUMMARY | 2025-07-08 15:41 | XMS_ITS | Clinical Summary ---
Author Organization [facility] Address [address] [place] [address] Care Team Providers Care Genetics Physician Name Role Phone AlegreEstrellita gonzalez MARLEY Primary Care Provider [phone] Source Comments PLEASE NOTE, if this patient is a minor, it may be UNLAWFUL to discuss sensitive information that is contained in these records (such as FAMILY PLANNING, MENTAL HEALTH or SUBSTANCE ABUSE) with the minor patient's parent or other person without the patient's specific authorization.[facility] Allergies No known active allergies Medications azithromycin (ZITHROMAX Z-RAJAN) 250 mg tabletIndication s:Acute pharyngitis, unspecified etiology Take 2 tabs(500mg) on day 1 and then 1 tab(250mg) once daily for next 4 days. 6 Tab 0 6 Active mometasone (NASONEX) 50 mcg/actuation nasal sprayIndications :Seasonal allergic rhinitis,Nasal congestion Place 2 Sprays in both nostrils once daily. 17 g 2 6 Active pseudoephedrine (SUDAFED) 60 mg tabletIndication s:Nasal congestion Take 1 Tab by mouth nightly at bedtime as needed for congestion. 30 Tab 0 6 Active albuterol sulfate hfa 90 mcg/actuation inhalerIndicatio ns:Wheezing Inhale 2 Puffs into the lungs every 6 (six) hours as needed for shortness of breath or wheezing. 6.7 g 1 6 Active cetirizine (ZYRTEC) 10 mg tabletIndication s:Seasonal allergic rhinitis Take 1 Tab by mouth once daily. 30 Tab 1 6 Active clindamycin (CLINDAGEL) 1 % gelIndications:F olliculitis Apply topically 2 (two) times daily. 30 g 0 08/04/201 6 Active Active Problems Problem Noted Date Diagnosed Date Hypertriglyceridemia 11/03/2015 Overweight 10/08/2015 Seasonal allergic rhinitis 10/08/2015 Immunizations Immunization Administration Dates Next Due TDAP 12/07/2015 Family History Medical History Relation Name Comments Heart Problems Maternal Grandfather Heart Problems Maternal Grandmother Cancer Mother cervical ca Hypertension Mother Relation Name Status Comments Father Alive Maternal Grandfather Maternal Grandmother Alive Mother Alive Social History Tobacco Use Types Packs/Day Years Used Date Smoking Tobacco: Former Tobacco Cessation:Counseling Given: Yes Alcohol Use Standard Drinks/Week Comments Yes 0 (1 standard drink = 0.6 oz pure alcohol) weekends, >10 beers on weekends Social Connections Answer Date Recorded Social Connections and Isolation 0 06/08/2019 Financial Resource Strain Answer Date R ecorded Financial Resource Strain 0 2018 Stress Answer Date Recorded Stress 0 06/08/2019 Physical Activity Answer Date Recorded Physical Activity 0 06/08/2019 Food Insecurity Answer Date Recorded Food 0 06/08/2019 Transportation Needs Answer Date Record ed Transportation 0 06/08/2019 Housing Stability Answer Date Recorded Housing 0 06/08/2019 Safety and Environment Answer Date Harris rded Safety 0 06/08/2019 Utilities Answer Date Recorded Utilities 0 06/08/2019 Employment Answer Date Recorded Employment 0 06/08/2019 Sex and Gender Information Value Date Recorded Sex Assigned at Not on file Legal Sex Male 11:09 AM PST Gender Identity Not on file Sexual Orientation Not on file 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 on file Not on file Not on file Last Filed Vital Signs Vital Sign Reading Time Taken Comments Blood Pressure 126/76 05/19/2016 5:10 PM EDT Pulse 65 05/19/2016 5:10 PM EDT Temperature 37.1 C (98.8 F) 05/19/2016 5:10 PM EDT Respiratory Rate 16 05/19/2016 5:10 PM EDT Oxygen Saturation 98% 05/19/2016 5:10 PM EDT Inhaled Oxygen Concentration - - Weight 79.4 kg (175 lb) 05/19/2016 5:10 PM EDT Height 162.6 cm (5' 4 ) 01/14/2016 3:08 PM EDT Body Mass Index 30.04 01/14/2016 3:08 PM EDT Plan of Treatment Not on file Insurance [facility] Member Subscriber Plan / Payer (Ef fective 2016-Present) Name:Gabe Patel Relation to Subscriber:Self Name:Gabe Patel Payer ID:[id number] Group ID:Not on file Type:Medicaid Address: [facility] [id number] [place] [address] Care Teams Genetics Physician Relationship Specialty Start Date End Date Estrellita Alegre FNP [address] [place] [address] PCP - General 12/11/18
== END 2025-07-08 13:33 | disposition home or self-care (01) ==
LOC: HO.HUSH 12:49
PROVIDERS: Visit Provider Urology
DX: Z13.9 Encounter for screening, unspecified (principal); R31.9 Hematuria, unspecified
CPT/HCPCS: 99203

== ENCOUNTER 2025-07-08 12:49 | Outpatient (REF) | payer OTHER, SELFPAY | END 2025-07-08 12:50 | disposition home or self-care (01) | LOC: HO.LNP 12:49 | PROVIDERS: Visit Provider Urology | DX: N39.0 Urinary tract infection, site not specified (principal); R31.9 Hematuria, unspecified | CPT/HCPCS: 81003; 88112; 99202 ==

== ENCOUNTER 2025-09-03 13:58 | Outpatient (AMB) | payer OTHER, SELFPAY ==
--- NOTE | 2025-09-03 14:08 | MHC.PC.OV ---
Vital Signs 09/03/25 14:09 Height 5 ft 4 in Weight 181 lb 6 oz BMI 31.1 BP 140/66 H Blood Pressure Location Lt brachial Position Sitting Respiration 18 Pulse 76 Pulse Source Pulse Oximeter Temp Source Temporal Artery Scan Pulse Oximetry (%) 98 Oxygen Delivery Method Room Air Intake Visit Reasons: Chest pain Burr Grinder Required: No Accompanied by: Self / Same As Patient Allergies No Known Allergies Allergy (Verified 09/03/25 14:12) Medication List - Last Reconciled 09/03/25 by Maverick Umana MD amlodipine 5 mg PO DAILY Tobacco use date assessed: 09/03/25 Dental Screening Dental Screen Date: 09/03/25 Did you have a dental visit in the last 12 months?: Yes Did you have a dental problem in the last 6 months where you did not have access to dental care?: No Was dental information given to patient?: Patient has dentist HPI HPI Comments History of Present Illness Details The patient is a 40-year-old male with PMH of HTN presenting with chest pain. The patient describes the pain as being mildly present in the middle of his chest and reports experiencing it currently. Episodes of pain occurred last night while lying down and also today. The pain is exacerbated by climbing stairs, but not by walking on a flat surface, deep breathing, or touch. The discomfort can last for more than five minutes. He has tried Tylenol for the pain, assuming it was muscular, but experienced no relief. He was evaluated by cardiology about a year and a half ago for a similar issue, though the pain was previously more on the left side of his chest. A stress test performed in March 2023 was normal. He reports that he has always felt some amount of pain but notes it has now moved from the left side to the center of his chest. [facility] Medical History Hypertension Surgical History No history of previous surgery Family History Mother High blood pressure Cancer Father No problems noted. Social History Housing: Apartment Alcohol intake: current Alcohol intake frequency: a few times a month Patient Tobacco Use Status: Never used Tobacco e-Cigarette/Vaping Use: Never Used Second Hand Smoke Exposure: No service: No Current occupational status: employed Cognitive needs: No Hearing needs: No Vision needs: No Questionnaire PHQ-9 Over the last 2 weeks, how often have you been bothered by any of the following problems? 1. Little interest or pleasure in doing things: not at all 2. Feeling down, depressed, or hopeless: not at all 3. Trouble falling or staying asleep, or sleeping too much: not at all 4. Feeling tired or having little energy: not at all 5. Poor appetite or overeating: not at all 6. Feeling bad about yourself - or that you are a failure or have let yourself or your family down: not at all 7. Trouble concentrating on things, such as reading the newspaper or watching television: not at all 8. Moving or speaking so slowly that other people could have noticed. Or the opposite - being so fidgety or restless that you have been moving around a lot more than usual: not at all 9. Thoughts that you would be better off or of hurting yourself in some way: not at all Total score: 0 Source: Developed by Drs. Abhijeet Nunn, Mary Baker, Sherwin Kaminski and colleagues, with an educational valarie from [employer]. Thrive Questionnaire Date Thrive assessed: 09/03/25 I am a: Patient What is your living situation today?: I have a steady place to live Within the past 12 months, did the food you bought not last and you didn't have the money to get more?: Never true Within the past 12 months, did you worry whether your food would run out before you got money to buy more?: Never true Do you have trouble paying for medicines?: No Do you have trouble getting transportation to medical appointments?: No Do you have trouble paying your heating and electricity bill?: I choose not to answer this question Do you have trouble taking care of your child, family member or friend?: No Do you have trouble with day-to-day activities such as bathing, preparing meals, shopping, managing finances, etc.?: No Are you currently unemployed and looking for a job?: No Are you interested in more education?: I choose not to answer this question Please select the resources that you would like help with: None Currently or been in a relationship where the following occur: I choose not to answer THRIVE Score: 0 AUDIT C Alcohol Use Questionnaire (AUDIT-C) 1. How often do you have a drink containing alcohol?: Never 3. How often do you have six or more drinks on one occasion?: Never Total Score: 0 MARVEL-7 AMB Questionnaire MARVEL-7 Date MARVEL - 7 assessed: 09/03/25 Feeling nervous, anxious, or on edge: 0 = Not at all Not being able to stop or control worryin = Several days Worrying too much about different things: 1 = Several days Trouble relaxin = Several days Being so restless that it is hard to sit still: 0 = Not at all Becoming easily annoyed or irritable: 1 = Several days Feeling afraid as if something awful might happen: 1 = Several days Total MARVEL-7 score (0-4 normal; 5-9 mild; 10-14 moderate; 15-21 severe): 5 Source: Developed by Drs. Abhijeet Nunn, Mary Baker, Sherwin Kaminski and colleagues, with an educational valarie from [employer]. Review of Systems Const Details: As per HPI. Physical exam (Primary Care) Vital Signs: Last Vital Signs Pulse 76 09/03/25 14:09 Resp 18 09/03/25 14:09 BP 140/66 H 09/03/25 14:09 Pulse Ox 98 09/03/25 14:09 Oxygen Delivery Method Room Air 09/03/25 14:09 BMI result Body Mass Index 31.1 Tobacco/Smoking Status: Tobacco use Status Tobacco use date assessed 09/03/25 09/03/25 14:14 Patient Tobacco Use Status Never used Tobacco 09/03/25 14:14 Tobacco use type 03/06/23 14:26 e-Cigarette/Vaping Use Never Used 09/03/25 14:14 PHQ-9: PHQ-9 Score PHQ-9: Total score 0 09/03/25 14:14 Thrive Assessment: Date of Thrive Assessment Date Thrive assessed 09/03/25 09/03/25 14:14 Currently or been in a relationship where the following occur: I choose not to answer Const Other: Pertinent findings are in BOLD GENERAL APPEARANCE NAD, activity normal for age, well developed/ well nourished, no cyanosis, pallor, or diaphoresis. EYES lids/conjunctiva normal. EARS/NOSE/THROAT Mucous membranes moist, nares normal, lips/teeth normal uvula midline without oral pharyngeal erythema, exudate or swelling TMs normal bilaterally. No lymphangitis/lymphedema. HEAD/NECK normocephalic atraumatic, no facial trauma, neck is supple. RESPIRATORY respiratory effort normal, speaks in full sentences, no tripod position, no accessory muscle use. Lungs clear to auscultation without rhonchi, wheezes, rales CARDIAC Regular rate and rhythm, no edema. ABDOMINAL Soft, ND/NT. No evidence of fluid wave. No pulsatile masses on exam, rebound tenderness, Bautista sign or pain over Mcburney's point. MUSCLES/EXTREMITIES No abnormal range of motion, no swelling. SKIN Warm, pink and dry. No rashes, dermatoses, petechiae or lesions. NEUROLOGICAL Speech is clear and appropriate. Normal level of consciousness. Gait and coordination are normal. 5/5 strength in all extremities. PSYCH Normal mood and affect. Judgement/competence is appropriate Coding Level of Care Code Est Pt Level 3 (19701) Diagnoses Chest pain, unspecified type R07.9 Chest pain type: unspecified Time Spent (min) 20 Assessment & Plan Assessment & Plan (1) Chest pain: Code(s): R07.9 - Chest pain, unspecified Category: Medical Qualifiers: Chest pain type: unspecified Qualified Code(s): R07.9 - Chest pain, unspecified Plan: The patient's symptoms are consistant with stable angina. He reports worsening chest pain when taking the stairs. EKG in the office was normal. Prior stress test and echo 1.5 years ago were normal. Holter Monitor for 5 days. Advised the patient to keep diary of his chest pain when it occurs. F-U in two weeks to review the results. Elevated BP will be evaluated next visit. Plan Patient evaluated for chest pain. EKG in the office was normal. Holter monitor for 5 days as the patient reported symtpoms of stable angina. Orders: Orders ECG 5 day holter monitor Today R07.9 - Chest pain, unspecified AMB EKG-In Office Today Z13.6 - Encounter for screening for cardiovascular disorders
[2025-09-03 14:09] VITALS: BP 140/66; PULSE 76; RESP 18; O2SAT 98; BMI 31.1
--- OUTSIDE RECORDS SUMMARY | 2025-09-04 02:15 | XMS_ITS | Continuity of Care Document ---
Author Organization [place] [facility], Allergy Address [address] [place] [id number] Care Team Providers Care Jack Tamp Operator Name Role Phone RUTH FERNANDES Primary Care Provider Assessment Encounter Date Assessment Date Assessment LastModified by Organization Details LastModified Time 06/13/2025 06/13/2025 Visit With: Geneva Soto Use of Antihistamine s: Yes If yes: Vial Test Change in medications: No If yes Increase in asthma symptoms If yes, inhaler use: Reaction to last injections: No If yes: Allergy Symptoms: Other: Missed: Dose Aware of Vial Test Aware: Notes: [email or web address] Not available 06/13/2025 10:29:43 Plan of Treatment Reminders Order Date Submit Date Provider Last Modified By Organization Details Last Modified Time Details Appointments [facility]- Allergy f-up 6mon 2025 01:30P M BLANCA SHELL PA-C Not available Not available Not available Lab [...] Address Organization Details Recorded Time Allergic rhinitis 23500794 Active 2023 MICHELLE RADFORD MD [address] [address], [place], [address], [facility] 10:47:14 Polyp of nasal cavity 652748130 Active 2023 MICHELLE RADFORD MD [address] [address], [place], [address], [place] [facility] [place] 4 10:47:20 Deviated nasal septum 202705684 Active 2023 MICHELLE RADFORD MD 100 [facility], E [facility], [place], [address], [facility] - [facility] [place] 5 14:53:58 Mild intermittent asthma 294905523 Active 2023 MICHELLE RADFORD MD 100 [facility], E [facility], [place], [address], [facility] - [facility] [place] [facility] 5 14:12:57 Chronic sinusitis 04784285 Active 2023 MICHELLE RADFORD MD 100 [facility], E [facility], [place], [address], [facility] [place] 4 10:48:43 Nasal congestion 54254693 Active 2023 MICHELLE RADFORD MD 100 [facility] E [facility], [place], [address], [facility] [place] 4 09:41:01 Perennial allergic rhinitis 797328769 Active 2023 [facility], [facility] 100 [facility], [address], [employer] [place], [address], [facility] - [facility] [place] 5 16:43:37 Allergic reaction to pollen 218773322 Active 2024 MICHELLE RADFORD MD 100 [facility], [address], [place], [address], [facility] [place] 5 14:54:08 Hypertrophy of nasal turbinates 45725622 Active 2024 MICHELLE RADFORD MD 100 [facility], [address], [place], [address], 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 Procedures Surgical History Date Name Laterality Status Provider Name and Address Organization Details Recorded Time 08/27/20 25 Allergy Immunotherapy Injections completed Josseline Hurd 100 [facility],[address], [address], [place] - [facility] 08/27/2025 16:06:21 08/01/20 25 Allergy Immunotherapy Injections completed SAGE SHAFFER RN 100 [facility],[address], [address], [place] [facility] 08/01/2025 13:49:10 07/23/20 25 Allergy Immunotherapy Injections completed MANSI PATTERSON 100 [facility],[address], [address], [place] [facility] 07/23/2025 16:43:52 07/10/20 25 Allergy Immunotherapy Injections completed SAGE SHAFFER RN 100 [facility],[address], [address], [place] [facility] [place] [facility] 07/10/2025 15:33:20 07/03/20 25 Allergy Immunotherapy Injections completed MANSI PATTERSON 100 [facility],[place] [address] [place] [address], [address], [place] [facility] 07/03/2025 11:45:25 06/19/20 25 Allergy Immunotherapy Injections completed MANSI HERRERA [facility],[place] [address] [place] [address], [address], [place] [facility] 06/19/2025 15:49:30 06/13/20 25 Allergy Immunotherapy Injections completed MANSI HERRERA [address] [facility],[place] [address] [place] [address], [address], [place] [facility] 06/13/2025 10:29:34 06/04/20 25 Allergy Immunotherapy Injections completed MANSI HERRERA [address] [facility],[place] [address] [place] [address], [address], [place] [facility] 06/04/2025 17:10:18 05/29/20 25 Allergy Immunotherapy Injections completed MANSI PATTERSON [address] [facility],[address], [address], [place] [facility] 05/29/2025 14:00:36 05/08/20 25 Allergy Immunotherapy Injections completed SAGE SHAFFER RN [address] [facility],[address], [address], [place] [facility] 05/08/2025 14:20:05 05/02/20 25 Allergy Immunotherapy Injections completed DARSHAN ELIZABETH A [address] [facility],[address], [address], [place] [facility] 05/02/2025 15:10:27 04/23/20 25 Allergy Immunotherapy Injections completed MANSI HERRERA [facility],[address], [address], [place] [facility] 04/23/2025 14:59:41 03/27/20 25 nasal septoplasty completed MICHELLE BUCKLEY MD [address],[place] [address] [place] [address], [address], [place] [facility] 03/27/2025 14:10:24 03/27/20 25 excision of gordo bullosa completed MICHELLE BUCKLEY MD [address],[place] [address], [address], [place] [facility] 03/27/2025 14:11:26 03/27/20 25 submucous resection of nasal turbinate completed MICHELLE BUCKLEY MD [address], [place], [address], [place] [facility] 03/27/2025 14:11:07 03/20/20 25 Allergy Immunotherapy Injections completed MANSI HERRERA [address],[place] [address], [address], [place] [facility] 03/20/2025 12:03:14 03/14/20 25 Allergy Immunotherapy Injections completed SAGE SHAFFER RN [address] [facility] [address] [address], [address], [place] [facility] 03/14/2025 10:14:23 03/05/20 25 Allergy Immunotherapy Injections completed MANSI HERRERA [address] [facility] [address] [address], [address], [place] [facility] 03/05/2025 14:35:25 02/20/20 25 Allergy Immunotherapy Injections completed MANSI PATTERSON [address] [facility] [address],[place] [address] [place] [address], [address], [place] [facility] 02/19/2025 14:42:36 02/12/20 25 Allergy Immunotherapy Injections completed MANSI PATTERSON [address] [facility] [address] [address], [address], [place] [facility] 02/11/2025 14:28:02 02/07/20 25 Allergy Immunotherapy Injections completed MANSI HERRERA [address] [facility] [address] [address], [address], [place] [facility] 02/06/2025 14:38:05 01/22/20 25 Allergy Immunotherapy Injections completed SAGE SHAFFER RN [address] [facility] [address] [address], [address], [place] [facility] 01/21/2025 14:36:26 01/17/20 25 Allergy Immunotherapy Injections completed MASNI PATTERSON [address],[place] [address], [address], [place] [facility] 01/16/2025 11:44:26 01/08/20 25 Allergy Immunotherapy Injections completed SAGE SHAFFER RN [address], [place], [address], [place] [facility] 01/07/2025 16:03:39 12/11/19 25 Allergy Immunotherapy Injections completed MANSI PATTERSON [address], [place], [address], [place] [facility] 12/11/2024 14:58:51 11/19/19 25 Allergy Immunotherapy Injections completed SAGE SHAFFER RN [address], [place], [address], [place] [facility] 11/19/2024 15:29:01 10/31/19 25 Allergy Immunotherapy Injections completed SAGE SHAFFER RN [address] [facility] [address], [place], [address], [place] [facility] 10/31/2024 15:11:35 10/23/19 25 Allergy Immunotherapy Injections completed MANSI HERRERA [address] [facility] [address] [address], [address], [place] [facility] 10/23/2024 16:29:40 10/08/20 24 Allergy Immunotherapy Injections completed MANSI HERRERA [address] [facility] [address] [address], [address], [place] [facility] 10/08/2024 11:46:55 09/26/20 24 Allergy Immunotherapy Injections completed MANSI HERRERA [address] [facility] [address],[place] [address] [place] [address], [address], [place] [facility] 09/26/2024 14:25:57 09/17/20 24 Allergy Immunotherapy Injections completed SAGE SHAFFER RN [address] [facility] [address], [place], [address], [place] [facility] 09/17/2024 16:06:43 09/11/20 24 Allergy Immunotherapy Injections completed MANSI HERRERA [address],[place] [address], [address], [place] [facility] 09/11/2024 11:19:42 09/05/20 24 Allergy Immunotherapy Injections completed GENEVA SOTO A [address], [place], [address], [facility] 09/05/2024 10:17:58 08/26/20 24 Allergy Immunotherapy Injections completed GENEVA SOTO A [address] [facility] [address], [place], [address], [facility] 08/26/2024 16:07:13 06/28/20 24 Allergy Testing-Full completed DARSHAN ELIZABETH, [facility] [address] [facility] [address], [place], [address], [facility] 06/28/2024 11:23:07 06/19/20 24 JMSNasal/Sinus Endoscopy completed MICHELLE BUCKLEY MD [address] [facility], [place], [address], [facility] 06/19/2024 10:47:04 Imaging Results None recorded. Procedure Notes None recorded. Medical Equipment None Reported. Allergies No known drug allergies Medications Name Sig Start Date Stop Date Status Note LastModified by Organization Details LastModified Time doxycycline hyclate 100 mg capsule TOME 1 C PSULA POR V A ORAL DOS VECES AL D A 07/07 completed Not Available Not Available Not Available Saline Mist 0.65 % nasal spray aerosol TAKE 2 SPRAYS 3 TIMES A DAY BY NASAL ROUTE FOR 30 DAYS. active Not Available Not Available No t Available cetirizine 10 mg tablet TOME 1 TABLETA POR V A ORAL TODOS LOS D active Not Available Not Available No t Available amlodipine 5 mg tablet TOME 1 TABLETA POR V A ORAL TODOS LOS D 07/07 completed Not Available Not Available Not Available amlodipine 10 mg tablet TAKE 1 TABLET BY MOUTH 1 TIME EACH DAY. active Not Available Not Available No t Available triamcinolo ne acetonide 55 mcg nasal spray aerosol INSTILL 2 SPRAYS BY INTRANASA L ROUTE TO LOS D active Not Available Not Available No t Available losartan 25 mg tablet TAKE 1 TABLET BY MOUTH 1 TIME EACH DAY. 07/07 completed Not Available Not Available Not Available montelukast 10 mg tablet TOME 1 TABLETA POR V A ORAL TODOS LOS D 07/07 completed Not Available Not Available Not Available azelastine 137 mcg (0.1 %) nasal spray USE 2 SPRAYS NASALLY TWICE A DAY DIRECTED 06/19 completed Not Available Not Available Not Available epinephrine 0.3 mg/0.3 mL injection, auto-inject or INJECT DIRECTED FOR ANAPHYLAX IS active Not Available Not Available No t Available fluticasone propionate 50 mcg/actuati on nasal spray,suspe nsion ROCIAR 1 VEZ BY INTRANASA L ROUTE TODOS LOS D 07/07 completed Not Available Not Available Not Available doxycycline hyclate 100 mg tablet TOME 1 TABLETA POR V A ORAL DOS VECES AL D A POR 10 D 02/19 completed Not Available Not Available Not Available oxymetazoli ne 0.05 % nasal spray [place] 2 sprays twice a day by intranasa l route for 3 days. 07/07 completed Not Available Not Available Not Available hydrochloro thiazide 12.5 mg tablet TOME [...] Diagnosis/Indication Diagnosis SNOMED-CT Code Diagnosis ICD10 Code Diagnosis IMO Codes Diagnosis Note [id number] [facility] Allergy [address] [place] [address], [address] [place] [place] [address] 05/29/2025 13:40:21 05/29/2025 14:00:56 Perennial allergic rhinitis [id number] J30.89 [id number] DARSHAN [facility] Allergy 100 [facility],[address] [place] [place] [address] 06/04/2025 17:05:00 06/04/2025 17:15:13 Perennial allergic rhinitis [id number] J30.89 59821 GENEVA SOTO [facility] Allergy 100 [facility],[address] [place] [place] [address] 06/13/2025 10:12:51 06/13/2025 10:29:57 Perennial allergic rhinitis [id number] J30.89 Health Concerns Section Related Observation LastModified by Organization Detai ls LastModified Time None Recorded Concern Status LastModified by Organization Details LastModified Time None Recorded Payers Encounter Date Sequence Insurance Name Policy Number Policy Hobbs Covered Member ID Hobbs Member ID Guarantor Name 06/13/2025 1 [facility] NET PLAN (MEDICAID HMO) AURELIA Patel [id number] Gabe Patel
--- OUTSIDE RECORDS SUMMARY | 2025-09-04 02:16 | XMS_ITS | Continuity of Care Document ---
Author Organization [place] - [facility], [facility] Address [address] [place] [address] Care Team Providers Care Admissions Rn Name Role Phone CHILOLUDIN RUTH Primary Care Provider [phone] Assessment Encounter Date Assessment Date Assessment LastModified by Organization Details LastModified Time 07/07/2025 07/07/2025 Gabe Patel is a 39-year-old male with persistent allergy symptoms and difficulty with smell following nasal surgery. The patient will be prescribed saline solution for nasal irrigation to be used two to three times daily and a steroid nasal spray to be used once daily. He will continue with his allergy injections and cetirizine pills. The provider suspects that the difficulty with smell is related to mucus buildup rather than infection, as no signs of infection are present. The patient denies recent asthma exacerbations and does not require albuterol at this time. FOLLOW-UP: The patient will continue with the prescribed regimen and follow up as needed. [email or web address] Not available 07/07/2025 14:15:53 Plan of Treatment Reminders Order Date Submit Date Provider Last Modified By Organization Details Last Modified Time Details Appointments Establish ed- Allergy f-up 6mon 2025 01:30P M BLANCA SHELL PA-C Not available Not available Not available Lab None recorded. Referral None recorded. Procedures None recorded. Surgeries None recorded. Imaging None recorded. Medication Orders triamcino lone acetonide 55 mcg nasal spray aerosol 2024 [id number] [facility]/Pharmacy #1972, [address] [facility], [place], [address], 07/07/2025 14:13:59 Saline Nasal Mist 0.65 % spray aerosol 2024 [id number] [facility]/Pharmacy #1972, [address] [facility], [place], [address], 07/07/2025 14:14:00 Patient TargetsNo targets recorded. Patient Instructions Encounter Date Encounter Id Patient Instructions Last Modified By Organization Details Last Modified Time 07/07/2025 [id number] - Use saline solution for nasal irrigation two to three times daily. - Use Flonase-like nasal spray once daily. - Continue allergy injections. - Continue taking cetirizine pills. [email or web address] Not available 07/07/2025 14:14:21 Please note: Parts of this encounter note have been generated by AI based on audio conversation. Patient consent was required prior to utilizing this technology. Content review was required prior to finalizing the note. [email or web address] Not available 07/07/2025 14:14:21 Reason for Referral None Reported. Problems Name Problem SNOMED Code Status Onset Date Resolution Date Notes Provider Name and Address Organization Details Recorded Time Allergic rhinitis 77569957 Active 2023 MICHELLE RADFORD MD [address] [place] [address], [address], [place] [facility] 10:47:14 Polyp of nasal cavity 656364456 Active 2023 MICHELLE RADFORD MD [address] [place] [address], [place], [address], [place] [facility] 10:47:20 Deviated nasal septum 821901256 Active 2023 MICHELLE RADFORD MD [address] [place] [address], [address], [place] [facility] 5 14:53:58 Mild intermittent asthma 555451832 Active 2023 MICHELLE RADFORD MD [address] [place] [address], [place], [address], [place] [facility] 5 14:12:57 Chronic sinusitis 82864907 Active 2023 MICHELLE RADFORD MD [address] [facility] [address], [place], [address], [place] [facility] 4 10:48:43 Nasal congestion 65115813 Active 2023 MICHELLE RADFORD MD [address] [facility] [address], [place], [address], [place] [facility] 4 09:41:01 Perennial allergic rhinitis 197310281 Active 2023 [facility], [facility] [address], [place], [address], [facility] - [facility] 5 16:43:37 Allergic reaction to pollen 757858037 Active 2024 MICHELLE RADFORD MD [address] [facility] [address], [place], [address], [facility] - [facility] 5 14:54:08 Hypertrophy of nasal turbinates 40748182 Active 2024 MICHELLE RADFORD MD [address] [facility] [address], [place], [address], [facility] - [facility] 5 14:54:14 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 MICHELLE RADFORD MD [address] [facility] [address], [place], [address], [facility] - [facility] 5 14:54:23 Seasonal allergic rhinitis 195332405 Active 2024 MICHELLE RADFORD MD [address] [facility] [address], [place], [address], [facility] - [facility] 5 14:55:25 Acute sinusitis 28682021 Active 2024 MICHELLE RADFORD MD [address] [facility] [address], [place], [address], [facility] - [facility] 08:49:38 Problem Notes None recorded. Procedures Surgical History Date Name Laterality Status Provider Name and Address Organization Details Recorded Time 08/27/20 25 Allergy Immunotherapy Injections completed Josseline Hurd [address], [place], [address], [place] - [facility] 08/27/2025 16:06:21 08/01/20 25 Allergy Immunotherapy Injections completed SAGE SHAFFER RN [address] [facility] [address], [address], [place] [facility] 08/01/2025 13:49:10 07/23/20 25 Allergy Immunotherapy Injections completed DARSHAN ELIZABETH RMDilia [address], [address], [place] [facility] 07/23/2025 16:43:52 07/10/20 25 Allergy Immunotherapy Injections completed SAGE SHAFFER RN [address] [facility] [address] [place] [address], [address], [place] [facility] 07/10/2025 15:33:20 07/03/20 25 Allergy Immunotherapy Injections completed DARSHAN ELIZABETH RMA [address] [facility] [address], [address], [place] [facility] 07/03/2025 11:45:25 06/19/20 25 Allergy Immunotherapy Injections completed MANSI HERRERA [address], [place], [address], [place] [facility] 06/19/2025 15:49:30 06/13/20 25 Allergy Immunotherapy Injections completed MANSI HERRERA [address], [address], [place] [facility] 06/13/2025 10:29:34 06/04/20 25 Allergy Immunotherapy Injections completed MANSI HERRERA [address], [address], [place] [facility] 06/04/2025 17:10:18 05/29/20 25 Allergy Immunotherapy Injections completed DARSHAN ELIZABETH RMA [address], [place], [address], [place] [facility] 05/29/2025 14:00:36 05/08/20 25 Allergy Immunotherapy Injections completed SAGE SHAFFER RN [address] [facility],[address], [address], [place] [facility] 05/08/2025 14:20:05 05/02/20 25 Allergy Immunotherapy Injections completed MANSI PATTERSON [address] [facility] [address], [address], [place] [facility] 05/02/2025 15:10:27 04/23/20 25 Allergy Immunotherapy Injections completed MANSI HERRERA [address] [facility] [address], [address], [place] [facility] 04/23/2025 14:59:41 03/27/20 25 nasal septoplasty completed MICHELLE BUCKLEY MD [address] [facility],[address], [address], [place] [facility] 03/27/2025 14:10:24 03/27/20 25 excision of gordo bullosa completed MICHELLE BUCKLEY MD [address] [facility],[address], [address], [place] [facility] 03/27/2025 14:11:26 03/27/20 25 submucous resection of nasal turbinate completed MICHELLE BUCKLEY MD [address] [facility],[address], [address], [place] [facility] 03/27/2025 14:11:07 03/20/20 25 Allergy Immunotherapy Injections completed MANSI HERRERA [address] [facility] [address], [address], [place] [facility] 03/20/2025 12:03:14 03/14/20 25 Allergy Immunotherapy Injections completed SAGE SHAFFER RN [address] [facility] [address] [place],[address], [address], [place] [facility] 03/14/2025 10:14:23 03/05/20 25 Allergy Immunotherapy Injections completed EARL MEGHAN, RMA [address], [place], [address], [place] [facility] 03/05/2025 14:35:25 02/20/20 25 Allergy Immunotherapy Injections completed DARSHAN ELIZABETH, RMA [address], [place], [address], [place] [facility] 02/19/2025 14:42:36 02/12/20 25 Allergy Immunotherapy Injections completed DARSHAN ELIZABETH, RMA [address], [place], [address], [place] [facility] 02/11/2025 14:28:02 02/07/20 25 Allergy Immunotherapy Injections completed CRIS HERRERAA [address], [address], [place] [facility] 02/06/2025 14:38:05 01/22/20 25 Allergy Immunotherapy Injections completed SAGE SHAFFER RN [address] [place] [address], [address], [place] [facility] 01/21/2025 14:36:26 01/17/20 25 Allergy Immunotherapy Injections completed DARSHAN ELIZABETH RMA [address], [address], [place] [facility] 01/16/2025 11:44:26 01/08/20 25 Allergy Immunotherapy Injections completed SAGE SAHFFER RN [address] [facility] [address] [place] [address], [address], [place] [facility] 01/07/2025 16:03:39 12/11/19 25 Allergy Immunotherapy Injections completed DARSHAN ELIZABETH RMA [address], [address], [place] [facility] 12/11/2024 14:58:51 11/19/19 25 Allergy Immunotherapy Injections completed SAGE SHAFFER RN [address], [address], [place] [facility] 11/19/2024 15:29:01 10/31/19 25 Allergy Immunotherapy Injections completed SAGE SHAFFER RN [address], [place], [address], [place] [facility] 10/31/2024 15:11:35 10/23/19 25 Allergy Immunotherapy Injections completed MANSI HERRERA [address], [place], [address], [place] [facility] 10/23/2024 16:29:40 10/08/20 24 Allergy Immunotherapy Injections completed MANSI HERRERA [address], [place], [address], [place] [facility] 10/08/2024 11:46:55 09/26/20 24 Allergy Immunotherapy Injections completed MANSI HERRERA [address] [facility] [address], [place], [address], [place] [facility] 09/26/2024 14:25:57 09/17/20 24 Allergy Immunotherapy Injections completed SAGE SHAFFER RN [address] [facility] [address] [address] [place] [address], [address], [place] [facility] 09/17/2024 16:06:43 09/11/20 24 Allergy Immunotherapy Injections completed MANSI HERRERA [address] [facility] [address] [address], [place], [address], [place] [facility] 09/11/2024 11:19:42 09/05/20 24 Allergy Immunotherapy Injections completed MANSI HERRERA [address] [facility] [address] [address] [place] [address], [address], [place] [facility] 09/05/2024 10:17:58 08/26/20 24 Allergy Immunotherapy Injections completed MANSI HERRERA [address] [facility] [address], [place], [address], [place] [facility] 08/26/2024 16:07:13 06/28/20 24 Allergy Testing-Full completed MANSI PATTERSON [address], [place], [address], [place] [facility] 06/28/2024 11:23:06/19/20 24 JMSNasal/Sinus Endoscopy completed MICHELLE BUCKLEY MD [address] [place] [address],[place] [address], [place], [address], [facility] - [facility] 06/19/2024 10:47:04 Imaging Results None recorded. [...] INSTILL 2 SPRAYS BY INTRANASA L ROUTE TODOS LOS D active Not Available Not [...] VECES AL D A POR 10 D 05/07 /2025 completed Not Available Not Available Not Available oxymetazoli ne 0.05 % nasal spray [place] 2 sprays twice a day by intranasa l route for 3 days. 07/07 completed Not Available Not Available Not Available hydrochloro thiazide 12.5 mg tablet TOME BARBARA TABLETA POR V A ORAL TODOS LOS D 06/19 completed Not Available Not Available Not Available Vitals Date Recorded Body height Body mass index (BMI) Body weight Provider Name and Address Organization Details Last Updated DateTime 07/07/2025 162.56 cm 30.9 kg/m2 93467.63 g Aura Finn [place] - [facility] 07/07/2025 13:54:13 Social History None recorded. Functional Status None recorded. Mental Status None recorded. Family History Nothing Reported. Medical History Condition Response Hypertension Y Past Encounters Encounter ID Performer Location Encounter Start Date Encounter Closed Date Diagnosis/Indication Diagnosis SNOMED-CT Code Diagnosis ICD10 Code Diagnosis IMO Codes Diagnosis Note [id number] EARL CHRSITIANSON [facility] Allergy [address] [place] [phone] 06/13/2025 10:12:51 06/13/2025 10:29:57 Perennial allergic rhinitis 365650377 J30.89 [id number] EARL CHRISTIANSON [facility] Allergy [address] [place] [address] 06/19/2025 15:39:10 06/19/2025 15:49:59 Perennial allergic rhinitis 473645954 J30.89 [id number] DARSHAN ELIZABETH [facility] Allergy [address] [place] [address] 07/03/2025 11:27:54 07/03/2025 11:45:59 Perennial allergic rhinitis 881235398 J30.89 [id number] MICHELLE MATTHEWS MD [facility] of [address] [address] 07/07/2025 13:50:56 07/07/2025 14:18:22 Perennial allergic rhinitis 649485763 J30.89 Mild inter mittent asthma 256444808 J45.20 Health Concerns Section Related Observation LastModified by Organization Detai ls LastModified Time None Recorded Concern Status LastModified by Organization Details LastModified Time None Recorded Payers Encounter Date Sequence Insurance Name Policy Number Policy Hobbs Covered Member ID Hobbs Member ID Guarantor Name 07/07/2025 1 [facility] NET PLAN (MEDICAID HMO) AURELIA Patel [id number] Gabe Patel Notes Date Note Type Note Provider Name and Address Organization Details Recorded Time 07/07/2025 text/html ROS as noted in the HPI Gabe Patel is a 39-year-old male who presents for follow-up after nasal surgery. The patient reports improved breathing since the surgery but continues to experience allergy symptoms and difficulty with smell. He denies using nasal sprays currently and states this is his first appointment post-surgery. He has been receiving allergy injections and taking cetirizine pills. He denies recent asthma exacerbations and has not required albuterol for a while. No infection is reported. MICHELLE BUCKLEY MD [address] [place] [address], [place], [address], [facility] - [facility] 07/07/2025 14:16:18
--- OUTSIDE RECORDS SUMMARY | 2025-09-04 02:16 | XMS_ITS | Continuity of Care Document ---
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 Name Role Phone RUTH FERNANDES Primary Care Provider Assessment Encounter Date Assessment Date Assessment LastModified by Organization Details LastModified Time 06/19/2025 06/19/2025 Visit With: Geneva Soto Use of Antihistamine s: Yes If yes: Vial Test Change in medications: No If yes Increase in asthma symptoms If yes, inhaler use: Reaction to last injections: No If yes: Allergy Symptoms: Other: Missed: Dose Aware of Vial Test Aware: Notes: [email or web address] Not available 06/19/2025 15:49:44 Plan of Treatment Reminders Order Date Submit Date Provider Last Modified By Organization Details Last Modified Time Details Appointments [facility]- Allergy f-up 6mon 2025 01:30P M BLANCA [...] Address Organization Details Recorded Time Allergic rhinitis [id number] Active 2023 MICHELLE RADFORD MD [address] [address], [place], [address], [facility] 10:47:14 Polyp of nasal cavity 376674724 Active 2023 MICHELLE RADFORD MD [address] [place] [address], [place], [address], [place] [facility] [place] 4 10:47:20 Deviated nasal septum 820018216 Active 2023 MICHELLE RADFORD MD [address] [facility], E [facility], [place], [address], [facility] - [facility] [place] 5 14:53:58 Mild intermittent asthma 283044998 Active 2023 MICHELLE RADFORD MD [address] [facility], [address] [facility], [place], [address], [facility] - [facility] [place] 5 14:12:57 Chronic sinusitis 07315702 Active 2023 MICHELLE RADFORD MD [address] [facility], [address] [facility], [place], [address], [facility] - [facility] [place] 4 10:48:43 Nasal congestion 61250296 Active 2023 MICHELLE RADFORD MD 100 [facility] E [facility], [place], [address], [facility] - [facility] [place] 4 09:41:01 Perennial allergic rhinitis 163574318 Active 2023 [facility], [facility] [address] [facility], [address], [facility] [place], [address], [facility] - [facility] [place] 5 16:43:37 Allergic reaction to pollen 145247835 Active 2024 MICHELLE RADFORD MD [address] [facility], [address], [place], [address], [facility] - [facility] [place] 5 14:54:08 Hypertrophy of nasal turbinates 99725724 Active 2024 MICHELLE RADFORD MD 100 [facility], [address], [place], [address], [facility] - [facility] [place] 5 14:54:14 Gordo bullosa 161908225 Active 2024 MICHELLE RADFORD MD [address] [facility], [address], [place], [address], [place] [facility] [place] 14:54:23 Seasonal allergic rhinitis 673175823 Active 2024 MICHELLE RADFORD MD [address] [facility], [address], [place], [address], [place] [facility] [place] 14:55:25 Acute sinusitis 78602656 Active 2024 MICHELLE RADFORD MD 100 [facility], [address], [place], [address], [place] [facility] [place] 08:49:38 Problem Notes None recorded. Procedures Surgical History Date Name Laterality Status Provider Name and Address Organization Details Recorded Time 08/27/20 25 Allergy Immunotherapy Injections completed Josseline Hurd 100 [facility],[address], [address], [place] [facility] [place] 08/27/2025 16:06:21 08/01/20 25 Allergy Immunotherapy Injections completed SAGE SHAFFER RN 100 [facility],[address], [address], [place] [facility] [place] 08/01/2025 13:49:10 07/23/20 25 Allergy Immunotherapy Injections completed MANSI PATTERSON 100 [facility],[address], [address], [place] [facility] [place] 07/23/2025 16:43:52 07/10/20 25 Allergy Immunotherapy Injections completed SAGE SHAFFER RN 100 [facility],[address], [address], [place] [facility] [place] 07/10/2025 15:33:20 07/03/20 25 Allergy Immunotherapy Injections completed MANSI PATTERSON [address] [facility],[place] [address] [place] [address], [address], [place] [facility] [place] 07/03/2025 11:45:25 06/19/20 25 Allergy Immunotherapy Injections completed MANSI HERRERA [address] [facility],[place] [address] [place] [address], [address], [place] [facility] 06/19/2025 15:49:30 06/13/20 25 Allergy Immunotherapy Injections completed MANSI HERRERA [address] [facility],[place] [address] [place] [address], [address], [place] [facility] 06/13/2025 10:29:34 06/04/20 25 Allergy Immunotherapy Injections completed MANSI HERRERA [address] [facility],[place] [address] [place] [address], [address], [place] [facility] 06/04/2025 17:10:18 05/29/20 25 Allergy Immunotherapy Injections completed MANSI PATTERSON [address] [facility],[address], [address], [place] [facility] [place] 05/29/2025 14:00:36 05/08/20 25 Allergy Immunotherapy Injections completed SAGE SHAFFER RN [address] [facility],[address], [address], [place] [facility] 05/08/2025 14:20:05 05/02/20 25 Allergy Immunotherapy Injections completed DARSHAN ELIZABETH A [address] [facility],[address], [address], [place] [facility] 05/02/2025 15:10:27 04/23/20 25 Allergy Immunotherapy Injections completed MANSI HERRERA [address] [facility],[address], [address], [place] [facility] 04/23/2025 14:59:41 03/27/20 25 nasal septoplasty completed MICHELLE BUCKLEY MD [address],[place] [address] [place] [address], [address], [place] [facility] 03/27/2025 14:10:24 03/27/20 25 excision of gordo bullosa completed MICHELLE BUCKLEY MD [address], [place], [address], [place] [facility] 03/27/2025 14:11:26 03/27/20 25 submucous resection of nasal turbinate completed MICHELLE BUCKLEY MD [address], [place], [address], [place] [facility] 03/27/2025 14:11:07 03/20/20 25 Allergy Immunotherapy Injections completed MANSI HERRERA [address] [address], [place], [address], [place] [facility] 03/20/2025 12:03:14 03/14/20 25 Allergy Immunotherapy Injections completed SAGE SHAFFER RN [address] [address], [place], [address], [place] [facility] [place] 03/14/2025 10:14:23 03/05/20 25 Allergy Immunotherapy Injections completed MANSI HERRERA [address],[place] [address], [place], [address], [place] [facility] 03/05/2025 14:35:25 02/20/20 25 Allergy Immunotherapy Injections completed MANSI PATTERSON [address],[place] [address] [place] [address], [address], [place] [facility] 02/19/2025 14:42:36 02/12/20 25 Allergy Immunotherapy Injections completed MANSI PATTERSON [address] [address], [place], [address], [place] [facility] 02/11/2025 14:28:02 02/07/20 25 Allergy Immunotherapy Injections completed MANSI HERRERA [address] [address], [place], [address], [place] [facility] 02/06/2025 14:38:05 01/22/20 25 Allergy Immunotherapy Injections completed SAGE SHAFFER RN [address] [address], [place], [address], [place] [facility] 01/21/2025 14:36:26 01/17/20 25 Allergy Immunotherapy Injections completed MANSI PATTERSON [address], [place], [address], [place] [facility] 01/16/2025 11:44:26 01/08/20 25 Allergy Immunotherapy Injections completed SAGE SHAFFER RN [address], [place], [address], [place] [facility] 01/07/2025 16:03:39 12/11/19 25 Allergy Immunotherapy Injections completed MANSI PATTERSON [address], [place], [address], [place] [facility] 12/11/2024 14:58:51 11/19/19 25 Allergy Immunotherapy Injections completed SAGE SHAFFER RN [address], [place], [address], [place] [facility] 11/19/2024 15:29:01 10/31/19 25 Allergy Immunotherapy Injections completed SAGE SHAFFER RN [address], [place], [address], [place] [facility] 10/31/2024 15:11:35 10/23/19 25 Allergy Immunotherapy Injections completed MANSI HERRERA [address] [address], [place], [address], [place] [facility] 10/23/2024 16:29:40 10/08/20 24 Allergy Immunotherapy Injections completed MANSI HERRERA [address] [address], [place], [address], [place] [facility] 10/08/2024 11:46:55 09/26/20 24 Allergy Immunotherapy Injections completed MANSI HERRERA [address],[place] [address] [place] [address], [address], [place] [facility] 09/26/2024 14:25:57 09/17/20 24 Allergy Immunotherapy Injections completed SAGE SHAFFER RN [address], [place], [address], [place] [facility] 09/17/2024 16:06:43 09/11/20 24 Allergy Immunotherapy Injections completed MANSI HERRERA [address] [address], [place], [address], [place] [facility] 09/11/2024 11:19:42 09/05/20 24 Allergy Immunotherapy Injections completed GENEVA SOTO A [address], [place], [address], [facility] - [facility] 09/05/2024 10:17:58 08/26/20 24 Allergy Immunotherapy Injections completed GENEVA SOTO A [address], [place], [address], [facility] - [facility] 08/26/2024 16:07:13 06/28/20 24 Allergy Testing-Full completed DARSHAN ELIZABETH, [facility] [address], [place], [address], [facility] - [facility] 06/28/2024 11:23:07 06/19/20 24 JMSNasal/Sinus Endoscopy completed MICHELLE BUCKLEY MD [address] [facility], [place], [address], [facility] - [facility] 06/19/2024 10:47:04 Imaging Results None recorded. [...] Available oxymetazoli ne 0.05 % nasal spray Echo 2 sprays twice a day by intranasa [...] ICD10 Code Diagnosis IMO Codes Diagnosis Note [id number] [facility] Allergy [address] [place] [address], [address] [facility] [place] [address] 05/29/2025 13:40:21 05/29/2025 14:00:56 Perennial allergic rhinitis [id number] J30.89 [id number] DARSHAN [facility] Allergy 100 [facility],[place] [address] [facility] [place] [address] 06/04/2025 17:05:00 06/04/2025 17:15:13 Perennial allergic rhinitis [id number] J30.89 77816 GENEVA SOTO [facility] Allergy [address] [facility],[address] [facility] [place] [address] 06/13/2025 10:12:51 06/13/2025 10:29:57 Perennial allergic rhinitis 046317243 J30.89 63369 MANSI HERRERA Allergy 100 [facility] 100 [facility], [place] [address] 06/19/2025 15:39:10 06/19/2025 15:49:59 Perennial allergic rhinitis [id number] J30.89 Health Concerns Section Related Observation LastModified by Organization Detai ls LastModified Time None Recorded Concern Status LastModified by Organization Details LastModified Time None Recorded Payers Encounter Date Sequence Insurance Name Policy Number Policy Hobbs Covered Member ID Hobbs Member ID Guarantor Name 06/19/2025 1 [facility] - HEALTH NET PLAN (MEDICAID HMO) AURELIA Patel [id number] Gabe Patel
--- OUTSIDE RECORDS SUMMARY | 2025-09-04 02:16 | XMS_ITS | Continuity of Care Document ---
Author Organization [place] [facility], Allergy Address [address] [place] [address] Care Team Providers Care Computational Linguist Name Role Phone RUTH FERNANDES Primary Care Provider Assessment Encounter Date Assessment Date Assessment LastModified by Organization Details LastModified Time 07/10/2025 07/10/2025 Visit With: Sage Shaffer RN Use of Antihistamine s: Yes If yes: Vial Test Change in medications: No If yes Increase in asthma symptoms No If yes, inhaler use: Reaction to last injections: No If yes: Allergy Symptoms: Other: Missed: Dose Aware of Vial Test Aware: Notes: [email or web address] Not available 07/10/2025 15:33:26 Plan of Treatment Reminders Order Date Submit Date Provider Last Modified By Organization Details Last Modified Time Details Appointments [facility]- Allergy f-up 6mon 2025 01:30P M BLANCA [...] Address Organization Details Recorded Time Allergic rhinitis [id number] Active 2023 MICHELLE RADFORD MD [address] [place] [address], [place], [address], [facility] 10:47:14 Polyp of nasal cavity 578044976 Active 2023 MICHELLE RADFORD MD [address] [address], [place], [address], [place] [facility] 4 10:47:20 Deviated nasal septum 100341307 Active 2023 MICHELLE RADFORD MD 100 [facility], E [facility], [place], [address], [facility] - [facility] 5 14:53:58 Mild intermittent asthma 345010743 Active 2023 MICHELLE RADFORD MD 100 [facility], [address], [place], [address], [facility] - [facility] 5 14:12:57 Chronic sinusitis 70267442 Active 2023 MICHELLE RADFORD MD 100 [facility], E [facility], [place], [address], [facility] - [facility] 4 10:48:43 Nasal congestion 10064189 Active 2023 MICHELLE RADFORD MD 100 [facility], [address], [place], [address], [facility] - [facility] 4 09:41:01 Perennial allergic rhinitis 868458703 Active 2023 [facility] [place], [facility] [place], [address], [facility] - [facility] 5 16:43:37 Allergic reaction to pollen 962362796 Active 2024 MICHELLE RADFORD MD 100 [facility], [address], [place], [address], [facility] - [facility] 5 14:54:08 Hypertrophy of nasal turbinates 75706007 Active 2024 MICHELLE RADFORD MD 100 [facility],[address], [place], [address], [facility] - [facility] 5 14:54:14 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 Procedures Surgical History Date Name Laterality Status Provider Name and Address Organization Details Recorded Time 08/27/20 25 Allergy Immunotherapy Injections completed Josseline Hurd 100 [facility],[address], [address], [place] [facility] 08/27/2025 16:06:21 08/01/20 25 Allergy Immunotherapy Injections completed SAGE SHAFFER RN 100 [facility],[address], [address], [place] [facility] 08/01/2025 13:49:10 07/23/20 25 Allergy Immunotherapy Injections completed MANSI PATTERSON [facility] [place],[address], [address], [place] [facility] 07/23/2025 16:43:52 07/10/20 25 Allergy Immunotherapy Injections completed SAGE SHAFFER RN 100 [facility],[address] [address], [place], [address], [place] [facility] 07/10/2025 15:33:20 07/03/20 25 Allergy Immunotherapy Injections completed MANSI PATTERSON [address] [facility] [place] [address] [place] [address], [address], [place] [facility] 07/03/2025 11:45:25 06/19/20 25 Allergy Immunotherapy Injections completed MANSI HERRERA 100 [facility] [place],[address], [address], [facility] - [facility] 06/19/2025 15:49:30 06/13/20 25 Allergy Immunotherapy Injections completed MANSI HERRERA 100 [facility] [place],[address], [address], [facility] - [facility] 06/13/2025 10:29:34 06/04/20 25 Allergy Immunotherapy Injections completed MANSI HERRERA 100 [facility] [place] [address] [place] [address], [address], [place] [facility] 06/04/2025 17:10:18 05/29/20 25 Allergy Immunotherapy Injections completed DARSHAN ELIZABETH [facility] 100 [facility] [place],[address], [address], [facility] - [facility] 05/29/2025 14:00:36 05/08/20 25 Allergy Immunotherapy Injections completed SAGE SHAFFER RN 100 [facility],[address], [address], [facility] - [facility] 05/08/2025 14:20:05 05/02/20 25 Allergy Immunotherapy Injections completed DARSHAN ELIZABETH [facility] 100 [facility] [place],[address], [address], [place] [facility] 05/02/2025 15:10:27 04/23/20 25 Allergy Immunotherapy Injections completed MANSI HERRERA 100 [facility],[address], [address], [place] [facility] 04/23/2025 14:59:41 03/27/20 25 nasal septoplasty completed MICHELLE BUCKLEY MD 100 [facility] [place] [address] [place] [address], [address], [place] [facility] 03/27/2025 14:10:24 03/27/20 25 excision of gordo bullosa completed MICHELLE BUCKLEY MD 100 [facility] [place],[address], [address], [place] [facility] 03/27/2025 14:11:26 03/27/20 25 submucous resection of nasal turbinate completed MICHELLE BUCKLEY MD [address], [place], [address], [place] [facility] 03/27/2025 14:11:07 03/20/20 25 Allergy Immunotherapy Injections completed MANSI HERRERA [address],[place] [address], [address], [place] [facility] 03/20/2025 12:03:14 03/14/20 25 Allergy Immunotherapy Injections completed SAGE SHAFFER RN [address],[place] [address] [place] [address], [address], [place] [facility] 03/14/2025 10:14:23 03/05/20 25 Allergy Immunotherapy Injections completed MANSI HERRERA [address],[place] [address] [place] [address], [address], [place] [facility] 03/05/2025 14:35:25 02/20/20 25 Allergy Immunotherapy Injections completed MANSI PATTERSON [address],[place] [address] [place] [address], [address], [place] [facility] 02/19/2025 14:42:36 02/12/20 25 Allergy Immunotherapy Injections completed MANSI PATTERSON [address],[place] [address] [place] [address], [address], [place] [facility] 02/11/2025 14:28:02 02/07/20 25 Allergy Immunotherapy Injections completed MANSI HERRERA 100 [facility] [place] [address] [place] [address], [address], [place] [facility] 02/06/2025 14:38:05 01/22/20 25 Allergy Immunotherapy Injections completed SAGE SHAFFER RN [address],[place] [address] [place] [address], [address], [place] [facility] 01/21/2025 14:36:26 01/17/20 25 Allergy Immunotherapy Injections completed MANSI PATTERSON [address],[place] [address], [address], [place] [facility] 01/16/2025 11:44:26 01/08/20 25 Allergy Immunotherapy Injections completed SAGE SHAFFER RN [address], [place], [address], [place] [facility] 01/07/2025 16:03:39 12/11/19 25 Allergy Immunotherapy Injections completed MANSI PATTERSON [address], [place], [address], [place] [facility] 12/11/2024 14:58:51 11/19/19 25 Allergy Immunotherapy Injections completed SAGE SHAFFER RN [address], [place], [address], [place] [facility] 11/19/2024 15:29:01 10/31/19 25 Allergy Immunotherapy Injections completed SAGE SHAFFER RN [address], [place], [address], [place] [facility] 10/31/2024 15:11:35 10/23/19 25 Allergy Immunotherapy Injections completed MANSI HERRERA [address], [place], [address], [place] [facility] 10/23/2024 16:29:40 10/08/20 24 Allergy Immunotherapy Injections completed MANSI HERRERA [address], [place], [address], [place] [facility] 10/08/2024 11:46:55 09/26/20 24 Allergy Immunotherapy Injections completed MANSI HERRERA [address], [place], [address], [place] [facility] 09/26/2024 14:25:57 09/17/20 24 Allergy Immunotherapy Injections completed SAGE SHAFFER RN [address], [place], [address], [place] [facility] 09/17/2024 16:06:43 09/11/20 24 Allergy Immunotherapy Injections completed MANSI HERRERA [address], [place], [address], [place] [facility] 09/11/2024 11:19:42 09/05/20 24 Allergy Immunotherapy Injections completed EARL CHRISTIANSON A [address], [place], [address], [facility] - [facility] 09/05/2024 10:17:58 08/26/20 24 Allergy Immunotherapy Injections completed EARL CHRISTIANSON RMA [address], [place], [address], [facility] - [facility] 08/26/2024 16:07:13 06/28/20 24 Allergy Testing-Full completed DARSHAN ELIZABETH, RMA [address], [place], [address], [facility] - [facility] 06/28/2024 11:23:07 06/19/20 24 JMSNasal/Sinus Endoscopy completed MICHELLE BUCKLEY MD [address] [facility] [place],[address], [place], [address], [facility] - [facility] 06/19/2024 10:47:04 Imaging Results None recorded. Procedure [...] INSTILL 2 SPRAYS BY INTRANASA L ROUTE TOS LOS D active Not Available Not Available [...] Available oxymetazoli ne 0.05 % nasal spray [place] 2 sprays twice a day by intranasa [...] ICD10 Code Diagnosis IMO Codes Diagnosis Note [id number] EARL CHRISTIANSON [facility] Allergy 100 [facility],[address] [place] [address] 06/13/2025 10:12:51 06/13/2025 10:29:57 Perennial allergic rhinitis [id number] J30.89 49166 EARL CHRISTIANSON [facility] Allergy 100 [facility],[address] [place] [address] 06/19/2025 15:39:10 06/19/2025 15:49:59 Perennial allergic rhinitis [id number] J30.89 22173 DARSHAN ELIZABETH RMA Allergy [address] [facility] [place],[address] [place] [address] 07/03/2025 11:27:54 07/03/2025 11:45:59 Perennial allergic rhinitis 950385832 J30.89 [id number] MICHELLE MATTHEWS MD [facility] [address] [facility] [place] [address] 07/07/2025 13:50:56 07/07/2025 14:18:22 Perennial allergic rhinitis 432508032 J30.89 Mild inter mittent asthma 116174880 J45.20 [id number] SAGE SHAFFER RN Allergy [address] [place] [address] [place] [address] 07/10/2025 15:28:38 07/10/2025 15:33:54 Perennial allergic rhinitis 050669753 J30.89 Health Concerns Section Related Observation LastModified by Organization Detai ls LastModified Time None Recorded Concern Status LastModified by Organization Details LastModified Time None Recorded Payers Encounter Date Sequence Insurance Name Policy Number Policy [place] Covered Member ID [place] Member ID Guarantor Name 07/10/2025 1 [employer] - HEALTH NET PLAN (MEDICAID HMO) AURELIA Patel [id number] Gabe Patel
--- OUTSIDE RECORDS SUMMARY | 2025-09-04 02:16 | XMS_ITS | Continuity of Care Document ---
Author Organization [place] - 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 Tile Mechanic Name Role Phone RUTH FERNANDES Primary Care Provider Assessment Encounter Date Assessment Date Assessment LastModified by Organization Details LastModified Time 08/01/2025 08/01/2025 Visit With: Sage Shaffer RN Use of Antihistamine s: Yes If yes: Vial Test Change in medications: No If yes Increase in asthma symptoms No If yes, inhaler use: Reaction to last injections: No If yes: Allergy Symptoms: Other: Missed: Dose Aware of Vial Test Aware: Notes: [email or web address] Not available 08/01/2025 13:49:16 Plan of Treatment Reminders Order Date Submit Date Provider Last Modified By Organization Details Last Modified Time Details Appointments [facility]- Allergy f-up 6mon 2025 01:30P [...] Address Organization Details Recorded Time Allergic rhinitis [id number] Active 2023 MICHELLE RADFORD MD [address] [place] [address], [place], [address], [facility] 10:47:14 Polyp of nasal cavity [id number] Active 2023 MICHELLE RADFORD MD [address] [address], [place], [address], [place] - [facility] [place] 4 10:47:20 Deviated nasal septum 232495350 Active 2023 MICHELLE RADFORD MD 100 [facility], E [facility], [facility] [place], [address], [facility] - [facility] [place] 5 14:53:58 Mild intermittent asthma 133075412 Active 2023 MICHELLE RADFORD MD 100 [facility], [address], [place], [address], [facility] - [facility] [place] 5 14:12:57 Chronic sinusitis 33199044 Active 2023 MICHELLE RADFORD MD 100 [facility], [facility], [facility] [place], [address], [facility] - [facility] [place] 4 10:48:43 Nasal congestion 28923271 Active 2023 MICHELLE RADFORD MD 100 [facility], [address], [place], [address], [facility] - [facility] [place] 4 09:41:01 Perennial allergic rhinitis 609790021 Active 2023 [facility] 100 [facility],[address], [facility] [place], [address], [facility] - [facility] [place] 5 16:43:37 Allergic reaction to pollen 067196406 Active 2024 MICHELLE RADFORD MD 100 [facility], [address], [place], [address], [facility] - [facility] [place] 5 14:54:08 Hypertrophy of nasal turbinates 20579956 Active 2024 MICHELLE RADFORD MD 100 [facility],[address], [place], [address], [facility] - [facility] [place] 5 14:54:14 Gordo bullosa 264516329 Active 2024 MICHELLE RADFORD MD 100 [facility],[address], [place], [address], [place] [facility] [place] 14:54:23 Seasonal allergic rhinitis 319222673 Active 2024 MICHELLE RADFORD MD 100 [facility],[address], [place], [address], [place] [facility] [place] 14:55:25 Acute sinusitis 03528016 Active 2024 MICHELLE RADFORD MD 100 [facility], [address], [place], [address], [place] [facility] [place] 08:49:38 Problem Notes None recorded. Procedures Surgical History Date Name Laterality Status Provider Name and Address Organization Details Recorded Time 08/27/20 25 Allergy Immunotherapy Injections completed Josseline Hurd 100 [facility],[address], [address], [place] - [facility] [place] 08/27/2025 16:06:21 08/01/20 25 Allergy Immunotherapy Injections completed SAGE SHAFFER RN 100 [facility],[address], [address], [place] [facility] [place] 08/01/2025 13:49:10 07/23/20 25 Allergy Immunotherapy Injections completed MANSI PATTERSON 100 [facility] [place],[address], [address], [place] [facility] 07/23/2025 16:43:52 07/10/20 25 Allergy Immunotherapy Injections completed SAGE SHAFFER RN 100 [facility],[address] [address], [place], [address], [place] [facility] [place] 07/10/2025 15:33:20 07/03/20 25 Allergy Immunotherapy Injections completed MANSI PATTERSON 100 [facility] [place] [address] [place] [address], [address], [place] [facility] [place] 07/03/2025 11:45:25 06/19/20 25 Allergy Immunotherapy Injections completed MANSI HERRERA 100 [facility] [place],[address], [address], [facility] - [facility] [place] 06/19/2025 15:49:30 06/13/20 25 Allergy Immunotherapy Injections completed MANSI HERRERA 100 [facility] [place],[address], [address], [facility] - [facility] [place] 06/13/2025 10:29:34 06/04/20 25 Allergy Immunotherapy Injections completed MANSI HERRERA 100 [facility] [place] [address] [place] [address], [address], [place] [facility] [place] 06/04/2025 17:10:18 05/29/20 25 Allergy Immunotherapy Injections completed DARSHAN ELIZABETH [facility] 100 [facility] [place],[address], [address], [facility] - [facility] [place] 05/29/2025 14:00:36 05/08/20 25 Allergy Immunotherapy Injections completed SAGE SHAFFER RN 100 [facility],[address], [address], [facility] - [facility] [place] 05/08/2025 14:20:05 05/02/20 25 Allergy Immunotherapy Injections completed DARSHAN ELIZABETH [facility] 100 [facility] [place],[address], [address], [place] [facility] [place] 05/02/2025 15:10:27 04/23/20 25 Allergy Immunotherapy Injections completed MANSI HERRERA 100 [facility],[address], [address], [place] [facility] [place] 04/23/2025 14:59:41 03/27/20 25 nasal septoplasty completed MICHELLE BUCKLEY MD 100 [facility] [place] [address] [place] [address], [address], [place] [facility] [place] 03/27/2025 14:10:24 03/27/20 25 excision of gordo bullosa completed MICHELLE BUCKLEY MD 100 [facility] [place],[address], [place], [address], [place] [facility] [place] 03/27/2025 14:11:26 03/27/20 25 submucous resection of nasal turbinate completed MICHELLE BUCKLEY MD [address], [place], [address], [place] [facility] [place] 03/27/2025 14:11:07 03/20/20 25 Allergy Immunotherapy Injections completed MANSI HERRERA [address], [place], [address], [place] [facility] [place] 03/20/2025 12:03:14 03/14/20 25 Allergy Immunotherapy Injections completed SAGE SHAFFER RN [address] [facility] [address],[place] [address] [place] [address], [address], [place] [facility] [place] 03/14/2025 10:14:23 03/05/20 25 Allergy Immunotherapy Injections completed MANSI HERRERA [address] [facility] [address],[place] [address] [place] [address], [address], [place] [facility] [place] 03/05/2025 14:35:25 02/20/20 25 Allergy Immunotherapy Injections completed MANSI PATTERSON [address] [facility] [address],[place] [address] [place] [address], [address], [place] [facility] [place] 02/19/2025 14:42:36 02/12/20 25 Allergy Immunotherapy Injections completed MANSI PATTERSON [address] [facility] [address],[place] [address] [place] [address], [address], [place] [facility] [place] 02/11/2025 14:28:02 02/07/20 25 Allergy Immunotherapy Injections completed MANSI HERRERA 100 [facility] [place] [address] [place] [address], [address], [place] [facility] [place] 02/06/2025 14:38:05 01/22/20 25 Allergy Immunotherapy Injections completed SAGE SHAFFER RN [address],[place] [address] [place] [address], [address], [place] [facility] [place] 01/21/2025 14:36:26 01/17/20 25 Allergy Immunotherapy Injections completed MANSI PATTERSON [address] [facility] [address],[place] [address], [place], [address], [place] [facility] [place] 01/16/2025 11:44:26 01/08/20 25 Allergy Immunotherapy Injections completed SAGE SHAFFER RN [address], [place], [address], [place] [facility] [place] 01/07/2025 16:03:39 12/11/19 25 Allergy Immunotherapy Injections completed MANSI PATTERSON [address], [place], [address], [place] [facility] [place] 12/11/2024 14:58:51 11/19/19 25 Allergy Immunotherapy Injections completed SAGE SHAFFER RN [address], [place], [address], [place] [facility] [place] 11/19/2024 15:29:01 10/31/19 25 Allergy Immunotherapy Injections completed SAGE SHAFFER RN [address] [facility] [address], [place], [address], [place] [facility] [place] 10/31/2024 15:11:35 10/23/19 25 Allergy Immunotherapy Injections completed MANSI HERRERA [address], [place], [address], [place] [facility] [place] 10/23/2024 16:29:40 10/08/20 24 Allergy Immunotherapy Injections completed MANSI HERRERA [address], [place], [address], [place] [facility] [place] 10/08/2024 11:46:55 09/26/20 24 Allergy Immunotherapy Injections completed MANSI HERRERA [address] [facility] [address], [place], [address], [place] [facility] [place] 09/26/2024 14:25:57 09/17/20 24 Allergy Immunotherapy Injections completed SAGE SHAFFER RN [address] [facility] [address], [place], [address], [place] [facility] [place] 09/17/2024 16:06:43 09/11/20 24 Allergy Immunotherapy Injections completed MANSI HERRERA [address], [place], [address], [place] [facility] [place] 09/11/2024 11:19:42 09/05/20 24 Allergy Immunotherapy Injections completed EARL CHRISTIANSON A [address], [place], [address], [facility] - [facility] 09/05/2024 10:17:58 08/26/20 24 Allergy Immunotherapy Injections completed EARL CHRISTIANSON RMA [address] [facility] [address], [place], [address], [facility] - [facility] 08/26/2024 16:07:13 06/28/20 24 Allergy Testing-Full completed DARSHAN ELIZABETH, RMA [address], [place], [address], [facility] - [facility] 06/28/2024 11:23:07 06/19/20 24 JMSNasal/Sinus Endoscopy completed MICHELLE BUCKLEY MD 100 [facility] [place],[address], [place], [address], [facility] - [facility] 06/19/2024 10:47:04 Imaging Results None recorded. [...] Available oxymetazoli ne 0.05 % nasal spray [place] 2 sprays twice a day by intranasa [...] ICD10 Code Diagnosis IMO Codes Diagnosis Note [id number] [facility] Allergy [address] [place] [address] [place] [address] 07/03/2025 11:27:54 07/03/2025 11:45:59 Perennial allergic rhinitis [id number] J30.89 [id number] MICHELLE MATTHEWS MD [facility] [address] [place] [address] 07/07/2025 13:50:56 07/07/2025 14:18:22 Perennial allergic rhinitis 129376760 J30.89 Mild inter mittent asthma 052586625 J45.20 05636 SAGE SHAFFER RN Allergy [address] [place] [address] [place] [address] 07/10/2025 15:28:38 07/10/2025 15:33:54 Perennial allergic rhinitis 385367947 J30.89 57478 MANSI HERRERA Allergy 100 [facility], [address] [place] [address] 07/23/2025 16:16:53 07/23/2025 16:44:13 Perennial allergic rhinitis 246231085 J30.89 94298 Josseline Hurd Allergy 100 [facility] 100 [place] [address] 08/01/2025 13:30:51 08/01/2025 13:49:33 Perennial allergic rhinitis [id number] J30.89 Health Concerns Section Related Observation LastModified by Organization Detai ls LastModified Time None Recorded Concern Status LastModified by Organization Details LastModified Time None Recorded Payers Encounter Date Sequence Insurance Name Policy Number Policy Hobbs Covered Member ID Hobbs Member ID Guarantor Name 08/01/2025 1 [employer] - HEALTH NET PLAN (MEDICAID HMO) AURELIA Patel [id number] Gabe Patel
--- OUTSIDE RECORDS SUMMARY | 2025-09-04 02:16 | XMS_ITS | Continuity of Care Document ---
Author Organization [place] - [facility], Allergy Address [address] [place] [phone] Care Team Providers Care Quantitative Analyst Name Role Phone RUTH FERNANDES Primary Care Provider [phone] Assessment Encounter Date Assessment Date Assessment LastModified by Organization Details LastModified Time 06/04/2025 06/04/2025 Visit With: MANSI Page Use of Antihistamine s: Yes If yes: Vial Test Change in medications: No If yes Increase in asthma symptoms If yes, inhaler use: Reaction to last injections: No If yes: Allergy Symptoms: Other: Missed: Dose Aware of Vial Test Aware: Notes: [email or web address] Not available 06/04/2025 17:14:57 Plan of Treatment Reminders Order Date Submit Date Provider Last Modified By Organization Details Last Modified Time Details Appointments [facility]- Allergy f-up 6mon 2025 01:30P M BLANCA [...] Address Organization Details Recorded Time Allergic rhinitis [id number] Active 2023 MICHELLE RADFORD MD [address] [address], [place], [address], [facility] 10:47:14 Polyp of nasal cavity 960872330 Active 2023 MICHELLE RADFORD MD [address] [address], [place], [address], [place] - [facility] 4 10:47:20 Deviated nasal septum 980563404 Active 2023 MICHELLE RADFORD MD [address] [facility], [place], [address], [facility] 5 14:53:58 Mild intermittent asthma 715311249 Active 2023 MICHELLE RADFORD MD [address] [facility],[address], [place], [address], [facility] - [facility] 5 14:12:57 Chronic sinusitis 26523856 Active 2023 MICHELLE RADFORD MD [address] [facility],[address], [place], [address], [facility] - [facility] 4 10:48:43 Nasal congestion 29749608 Active 2023 MICHELLE RADFORD MD [address] [facility], [place], [address], [facility] - [facility] 4 09:41:01 Perennial allergic rhinitis 602538022 Active 2023 [facility] [address] [facility], [place], [address], [facility] - [facility] 5 16:43:37 Allergic reaction to pollen 361544934 Active 2024 MICHELLE RADFORD MD [address] [facility],[address], [place], [address], [facility] - [facility] 5 14:54:08 Hypertrophy of nasal turbinates 89587829 Active 2024 MICHELLE RADFORD MD [address] [facility],[address], [place], [address], [facility] - [facility] 5 14:54:14 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 Procedures Surgical History Date Name Laterality Status Provider Name and Address Organization Details Recorded Time 08/27/20 25 Allergy Immunotherapy Injections completed Josseline Hurd 100 [facility],[address], [address], [place] - [facility] 08/27/2025 16:06:21 08/01/20 25 Allergy Immunotherapy Injections completed SAGE SHAFFER RN 100 [facility],[address], [address], [place] - [facility] 08/01/2025 13:49:10 07/23/20 25 Allergy Immunotherapy Injections completed MANSI PAGE 100 [facility],[address], [address], [place] [facility] 07/23/2025 16:43:52 07/10/20 25 Allergy Immunotherapy Injections completed SAGE SHAFFER RN 100 [facility],[address], [address], [place] [facility] 07/10/2025 15:33:20 07/03/20 25 Allergy Immunotherapy Injections completed MANSI PAGE [address] [facility],[address], [address], [place] - [facility] 07/03/2025 11:45:25 06/19/20 25 Allergy Immunotherapy Injections completed MANSI HERRERA [address] [facility],[address], [address], [facility] - [facility] 06/19/2025 15:49:30 06/13/20 25 Allergy Immunotherapy Injections completed MANSI HERRERA [address] [facility],[address], [address], [facility] - [facility] 06/13/2025 10:29:34 06/04/20 25 Allergy Immunotherapy Injections completed MANSI HERRERA 100 [facility],[address], [address], [place] [facility] 06/04/2025 17:10:18 05/29/20 25 Allergy Immunotherapy Injections completed DARSHAN ELIZABETH [facility] 100 [facility],[address], [address], [facility] - [facility] 05/29/2025 14:00:36 05/08/20 25 Allergy Immunotherapy Injections completed SAGE SHAFFER RN 100 [facility],[address], [address], [facility] - [facility] 05/08/2025 14:20:05 05/02/20 25 Allergy Immunotherapy Injections completed DARSHAN ELIZABETH [facility] 100 [facility],[address], [address], [facility] - [facility] 05/02/2025 15:10:27 04/23/20 25 Allergy Immunotherapy Injections completed MANSI HERRERA 100 [facility],[address], [address], [place] [facility] 04/23/2025 14:59:41 03/27/20 25 nasal septoplasty completed MICHELLE BUCKLEY MD [address] [facility],[place] [address] [place] [address], [address], [place] [facility] 03/27/2025 14:10:24 03/27/20 25 excision of gordo bullosa completed MICHELLE BUCKLEY MD [address] [facility],[place] [address] [place] [address], [address], [place] [facility] 03/27/2025 14:11:26 03/27/20 25 submucous resection of nasal turbinate completed MICHELLE BUCKLEY MD [address], [place], [address], [place] [facility] 03/27/2025 14:11:07 03/20/20 25 Allergy Immunotherapy Injections completed MANSI HERRERA [address], [place], [address], [place] [facility] 03/20/2025 12:03:14 03/14/20 25 Allergy Immunotherapy Injections completed SAGE SHAFFER RN [address], [place], [address], [place] [facility] 03/14/2025 10:14:23 03/05/20 25 Allergy Immunotherapy Injections completed MANSI HERRERA [address],[place] [address] [place] [address], [address], [place] [facility] 03/05/2025 14:35:25 02/20/20 25 Allergy Immunotherapy Injections completed MANSI PAGE [address],[place] [address] [place] [address], [address], [place] [facility] 02/19/2025 14:42:36 02/12/20 25 Allergy Immunotherapy Injections completed MANSI PAGE [address],[place] [address] [place] [address], [address], [place] [facility] 02/11/2025 14:28:02 02/07/20 25 Allergy Immunotherapy Injections completed MANSI HERRERA [address],[place] [address] [place] [address], [address], [place] [facility] 02/06/2025 14:38:05 01/22/20 25 Allergy Immunotherapy Injections completed SAGE SHAFFER RN [address],[place] [facility], [place], [address], [place] [facility] 01/21/2025 14:36:26 01/17/20 25 Allergy Immunotherapy Injections completed MANSI PAGE [address], [place], [address], [place] [facility] 01/16/2025 11:44:26 01/08/20 25 Allergy Immunotherapy Injections completed SAGE SHAFFER RN [address], [place], [address], [place] [facility] 01/07/2025 16:03:39 12/11/19 25 Allergy Immunotherapy Injections completed MANSI PAGE [address], [place], [address], [place] [facility] 12/11/2024 14:58:51 11/19/19 25 Allergy Immunotherapy Injections completed SAGE SHAFFER RN [address], [place], [address], [place] [facility] 11/19/2024 15:29:01 10/31/19 25 Allergy Immunotherapy Injections completed SAGE SHAFFER RN [address], [place], [address], [place] [facility] 10/31/2024 15:11:35 10/23/19 25 Allergy Immunotherapy Injections completed MANSI HERRERA [address], [place], [address], [place] [facility] 10/23/2024 16:29:40 10/08/20 24 Allergy Immunotherapy Injections completed MANSI HERRERA [address], [place], [address], [place] [facility] 10/08/2024 11:46:55 09/26/20 24 Allergy Immunotherapy Injections completed MANSI HERRERA [address] [facility], [place], [address], [place] [facility] 09/26/2024 14:25:57 09/17/20 24 Allergy Immunotherapy Injections completed SAGE SHAFFER RN [address], [place], [address], [place] [facility] 09/17/2024 16:06:43 09/11/20 24 Allergy Immunotherapy Injections completed MANSI HERRERA [address], [place], [address], [place] [facility] 09/11/2024 11:19:42 09/05/20 24 Allergy Immunotherapy Injections completed EARL CHRISTIANSON A [address], [place], [address], [facility] - [facility] 09/05/2024 10:17:58 08/26/20 24 Allergy Immunotherapy Injections completed EARL CHRISTIANSON A [address], [place], [address], [facility] - [facility] 08/26/2024 16:07:13 06/28/20 24 Allergy Testing-Full completed DARSHAN ELIZABETH, A [address], [place], [address], [facility] - [facility] 06/28/2024 11:23:07 06/19/20 24 JMSNasal/Sinus Endoscopy completed MICHELLE BUCKLEY MD [address] [facility],[place] [facility], [place], [address], [facility] - [facility] 06/19/2024 10:47:04 Imaging Results None recorded. [...] Available oxymetazoli ne 0.05 % nasal spray [place] 2 sprays twice a day by intranasa [...] ICD10 Code Diagnosis IMO Codes Diagnosis Note [id number] SAGE SHAFFER RN Allergy [address] [place] [address], [address] [place] [address] 05/08/2025 14:14:01 05/08/2025 14:20:27 Perennial allergic rhinitis [id number] J30.89 [address] [facility] 100 [facility],[address] [place] [address] 05/29/2025 13:40:21 05/29/2025 14:00:56 Perennial allergic rhinitis [id number] J30.89 [address] [facility], [facility] Allergy 100 [facility],[address] [place] [address] 06/04/2025 17:05:00 06/04/2025 17:15:13 Perennial allergic rhinitis [id number] J30.89 Health Concerns Section Related Observation LastModified by Organization Detai ls LastModified Time None Recorded Concern Status LastModified by Organization Details LastModified Time None Recorded Payers Encounter Date Sequence Insurance Name Policy Number Policy Hobbs Covered Member ID Hobbs Member ID Guarantor Name 06/04/2025 1 [facility] - HEALTH NET PLAN (MEDICAID HMO) AURELIA Patel [id number] Gabe Patel
--- OUTSIDE RECORDS SUMMARY | 2025-09-04 02:16 | XMS_ITS | Continuity of Care Document ---
Author Organization [place] [facility], Allergy Address [address] [place] [address] Care Team Providers Care Granite Polisher Apprentice Name Role Phone RUTH FERNANDES Primary Care Provider Assessment Encounter Date Assessment Date Assessment LastModified by Organization Details LastModified Time 07/03/2025 07/03/2025 Visit With: MANSI Page Use of Antihistamine s: Yes If yes: Vial Test Change in medications: No If yes Increase in asthma symptoms If yes, inhaler use: Reaction to last injections: No If yes: Allergy Symptoms: Other: Missed: Dose Aware of Vial Test Aware: Notes: [email or web address] Not available 07/03/2025 11:45:35 Plan of Treatment Reminders Order Date Submit Date Provider Last Modified By Organization Details Last Modified Time Details Appointments [facility]- Allergy f-up 6mon 2025 01:30P [...] Address Organization Details Recorded Time Allergic rhinitis [id number] Active 2023 MICHELLE RADFORD MD [address] [place] [address], [place], [address], [facility] - [facility] 10:47:14 Polyp of nasal cavity 544464321 Active 2023 MICHELLE RADFORD MD [address] [address], [place], [address], [place] [facility] [place] 4 10:47:20 Deviated nasal septum 699243798 Active 2023 MICHELLE RADFORD MD 100 [facility], [facility], [place], [address], [facility] - [facility] [place] 5 14:53:58 Mild intermittent asthma 389390077 Active 2023 MICHELLE RADFORD MD 100 [facility], [address], [place], [address], [facility] - [facility] [place] 5 14:12:57 Chronic sinusitis 26165233 Active 2023 MICHELLE RADFORD MD 100 [facility], [facility], [place], [address], [facility] - [facility] [place] 4 10:48:43 Nasal congestion 67793415 Active 2023 MICHELLE RADFORD MD 100 [facility], [address], [place], [address], [facility] - [facility] [place] 4 09:41:01 Perennial allergic rhinitis 820654554 Active 2023 [facility], [facility], [place], [address], [facility] - [facility] [place] 5 16:43:37 Allergic reaction to pollen 474569944 Active 2024 MICHELLE RADFORD MD 100 [facility], [address], [place], [address], [facility] - [facility] [place] 5 14:54:08 Hypertrophy of nasal turbinates 97933295 Active 2024 MICHELLE RADFORD MD [address] [facility],[address], [place], [address], [facility] - [facility] [place] 5 14:54:14 Gordo bullosa 615277022 Active 2024 MICHELLE RADFORD MD [address] [facility],[address], [place], [address], [place] [facility] [place] 14:54:23 Seasonal allergic rhinitis 092279643 Active 2024 MICHELLE RADFORD MD [address] [facility],[address], [place], [address], [place] [facility] [place] 14:55:25 Acute sinusitis 14134951 Active 2024 MICHELLE RADFORD MD 100 [facility], [address], [place], [address], [place] [facility] [place] 08:49:38 Problem Notes None recorded. Procedures Surgical History Date Name Laterality Status Provider Name and Address Organization Details Recorded Time 08/27/20 25 Allergy Immunotherapy Injections completed Josseline Hurd 100 [facility],[address], [address], [place] [facility] [place] 08/27/2025 16:06:21 08/01/20 25 Allergy Immunotherapy Injections completed SAGE SHAFFER RN 100 [facility],[address], [address], [place] [facility] [place] 08/01/2025 13:49:10 07/23/20 25 Allergy Immunotherapy Injections completed MANSI PAGE [facility],[address], [address], [place] [facility] 07/23/2025 16:43:52 07/10/20 25 Allergy Immunotherapy Injections completed SAGE SHAFFER RN 100 [facility],[address] [address], [place], [address], [place] [facility] [place] 07/10/2025 15:33:20 07/03/20 25 Allergy Immunotherapy Injections completed MANSI PAGE [address] [facility],[place] [address] [place] [address], [address], [place] [facility] [place] 07/03/2025 11:45:25 06/19/20 25 Allergy Immunotherapy Injections completed MANSI HERRERA [address] [facility],[address], [address], [facility] - [facility] [place] 06/19/2025 15:49:30 06/13/20 25 Allergy Immunotherapy Injections completed MANSI HERRERA [address] [facility],[address], [address], [facility] - [facility] [place] 06/13/2025 10:29:34 06/04/20 25 Allergy Immunotherapy Injections completed MANSI HERRERA [address] [facility],[place] [address] [place] [address], [address], [place] [facility] [place] 06/04/2025 17:10:18 05/29/20 25 Allergy Immunotherapy Injections completed DARSHAN ELIZABETH [facility] [address] [facility],[address], [address], [facility] - [facility] [place] 05/29/2025 14:00:36 05/08/20 25 Allergy Immunotherapy Injections completed SAGE SHAFFER RN 100 [facility],[address], [address], [facility] - [facility] [place] 05/08/2025 14:20:05 05/02/20 25 Allergy Immunotherapy Injections completed DARSHAN ELIZABETH [facility] [address] [facility],[address], [address], [place] [facility] [place] 05/02/2025 15:10:27 04/23/20 25 Allergy Immunotherapy Injections completed MANSI HERRERA 100 [facility],[address], [address], [place] [facility] [place] 04/23/2025 14:59:41 03/27/20 25 nasal septoplasty completed MICHELLE BUCKLEY MD [address] [facility],[place] [address] [place] [address], [address], [place] [facility] [place] 03/27/2025 14:10:24 03/27/20 25 excision of gordo bullosa completed MICHELLE BUCKLEY MD [address] [facility],[address], [place], [address], [place] [facility] [place] 03/27/2025 14:11:26 03/27/20 25 submucous resection of nasal turbinate completed MICHELLE BUCKLEY MD [address], [place], [address], [place] [facility] [place] 03/27/2025 14:11:07 03/20/20 25 Allergy Immunotherapy Injections completed MANSI HERRERA [address],[place] [address], [place], [address], [place] [facility] [place] 03/20/2025 12:03:14 03/14/20 25 Allergy Immunotherapy Injections completed SAGE SHAFFER RN [address],[place] [address] [place] [address], [address], [place] [facility] [place] 03/14/2025 10:14:23 03/05/20 25 Allergy Immunotherapy Injections completed MANSI HERRERA [address],[place] [address] [place] [address], [address], [place] [facility] [place] 03/05/2025 14:35:25 02/20/20 25 Allergy Immunotherapy Injections completed MANSI PAGE [address],[place] [address] [place] [address], [address], [place] [facility] [place] 02/19/2025 14:42:36 02/12/20 25 Allergy Immunotherapy Injections completed MANSI PAGE [address],[place] [address] [place] [address], [address], [place] [facility] [place] 02/11/2025 14:28:02 02/07/20 25 Allergy Immunotherapy Injections completed MANSI HERRERA [address] [facility],[place] [address] [place] [address], [address], [place] [facility] [place] 02/06/2025 14:38:05 01/22/20 25 Allergy Immunotherapy Injections completed SAGE SHAFFER RN [address],[place] [address] [place] [address], [address], [place] [facility] [place] 01/21/2025 14:36:26 01/17/20 25 Allergy Immunotherapy Injections completed MANSI PAGE [address],[place] [address], [place], [address], [place] [facility] [place] 01/16/2025 11:44:26 01/08/20 25 Allergy Immunotherapy Injections completed SAGE SHAFFER RN [address], [place], [address], [place] [facility] [place] 01/07/2025 16:03:39 12/11/19 25 Allergy Immunotherapy Injections completed MANSI PAGE [address], [place], [address], [place] [facility] [place] 12/11/2024 14:58:51 11/19/19 25 Allergy Immunotherapy Injections completed SAGE SHAFFER RN [address], [place], [address], [place] [facility] [place] 11/19/2024 15:29:01 10/31/19 25 Allergy Immunotherapy Injections completed SAGE SHAFFER RN [address], [place], [address], [place] [facility] [place] 10/31/2024 15:11:35 10/23/19 25 Allergy Immunotherapy Injections completed MANSI HERRERA [address], [place], [address], [place] [facility] [place] 10/23/2024 16:29:40 10/08/20 24 Allergy Immunotherapy Injections completed MANSI HERRERA [address], [place], [address], [place] [facility] [place] 10/08/2024 11:46:55 09/26/20 24 Allergy Immunotherapy Injections completed MANSI HERRERA [address], [place], [address], [place] [facility] [place] 09/26/2024 14:25:57 09/17/20 24 Allergy Immunotherapy Injections completed SAGE SHAFFER RN [address], [place], [address], [place] [facility] [place] 09/17/2024 16:06:43 09/11/20 24 Allergy Immunotherapy Injections completed MANSI HERRERA [address], [place], [address], [place] [facility] [place] 09/11/2024 11:19:42 09/05/20 24 Allergy Immunotherapy Injections completed EARL CHRISTIANSON A [address], [place], [address], [facility] - [facility] 09/05/2024 10:17:58 08/26/20 24 Allergy Immunotherapy Injections completed EARL CHRISTIANSON RMA [address], [place], [address], [facility] - [facility] 08/26/2024 16:07:13 06/28/20 24 Allergy Testing-Full completed DARSHAN ELIZABETH, RMA [address], [place], [address], [facility] - [facility] 06/28/2024 11:23:07 06/19/20 24 JMSNasal/Sinus Endoscopy completed MICHELLE BUCKLEY MD [address] [facility],[address], [place], [address], [facility] - [facility] 06/19/2024 10:47:04 Imaging Results None recorded. [...] Available oxymetazoli ne 0.05 % nasal spray Ceresco 2 sprays twice a day by intranasa [...] ICD10 Code Diagnosis IMO Codes Diagnosis Note [id number] [facility], A Allergy 100 [facility], [address] [place] [address] 06/04/2025 17:05:00 06/04/2025 17:15:13 Perennial allergic rhinitis [id number] J30.89 02102 EARL CHRISTIANSON [facility] Allergy [address] [place] [address], [address] [place] [address] 06/13/2025 10:12:51 06/13/2025 10:29:57 Perennial allergic rhinitis [id number] J30.89 42903 EARL CHRISTIANSON [facility] Allergy 100 [facility],[address] [place] [address] 06/19/2025 15:39:10 06/19/2025 15:49:59 Perennial allergic rhinitis [id number] J30.89 97341 DARSHAN ELIZABETH, RMA Allergy 100 [facility] 100 [place] [address] 07/03/2025 11:27:54 07/03/2025 11:45:59 Perennial allergic rhinitis [id number] J30.89 Health Concerns Section Related Observation LastModified by Organization Detai ls LastModified Time None Recorded Concern Status LastModified by Organization Details LastModified Time None Recorded Payers Encounter Date Sequence Insurance Name Policy Number Policy Hobbs Covered Member ID Hobbs Member ID Guarantor Name 07/03/2025 1 [employer] - HEALTH NET PLAN (MEDICAID HMO) [place] Gabe Patel [id number] Gabe Patel
--- OUTSIDE RECORDS SUMMARY | 2025-09-04 02:16 | XMS_ITS | Continuity of Care Document ---
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 Name Role Phone RUTH FERNANDES Primary Care Provider Assessment Encounter Date Assessment Date Assessment LastModified by Organization Details LastModified Time 08/27/2025 08/27/2025 Visit With: Josseline Hurd [place] Use of Antihistamine s: Yes If yes: Vial Test Change in medications: No If yes Increase in asthma symptoms No If yes, inhaler use: Reaction to last injections: No If yes: Allergy Symptoms: Other: Missed: 3 weeks Dose Decreased Aware of Vial Test Yes Aware: Notes: [email or web address] Not available 08/27/2025 16:06:36 Plan of Treatment Reminders Order Date Submit Date Provider Last Modified By Organization Details Last Modified Time Details Appointments [facility]- Allergy f-up 6mon 2025 01:30P M BLANCA [...] Address Organization Details Recorded Time Allergic rhinitis [id number] Active 2023 MICHELLE RADFORD MD [address] [place] [address], [place], [address] , [facility] - [facility] 10:47:14 Polyp of nasal cavity 012454489 Active 2023 MICHELLE RADFORD MD [address] [place] [address], [place], [address], [facility] - [facility] [place] 4 10:47:20 Deviated nasal septum 889513554 Active 2023 MICHELLE RADFORD MD [address] [facility], [place], [address], [facility] - [facility] [place] 5 14:53:58 Mild intermittent asthma 056889293 Active 2023 MICHELLE RADFORD MD [address] [facility], [place], [address], [facility] - [facility] [place] 5 14:12:57 Chronic sinusitis 75011930 Active 2023 MICHELLE RADFORD MD [address] [facility], [employer] [place], [address], [facility] - [facility] [place] 4 10:48:43 Nasal congestion 10642317 Active 2023 MICHELLE RADFORD MD [address] [facility], [address], [place], [address], [facility] - [facility] [place] 4 09:41:01 Perennial allergic rhinitis 393860641 Active 2023 [facility], [facility] [address] [facility] [place], [place], [address], [facility] - [facility] [place] 5 16:43:37 Allergic reaction to pollen 190291004 Active 2024 MICHELLE RADFORD MD [address] [facility], [place], [address], [facility] - [facility] [place] 5 14:54:08 Hypertrophy of nasal turbinates 87463401 Active 2024 MICHELLE RADFORD MD [address] [facility] [place],[address], [place] [place], [address], 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,[address], [place], [address], [place] [facility] [place] 14:54:23 Seasonal allergic rhinitis 126937426 Active 2024 MICHELLE RADFORD MD [address] [facility],[address], [place], [address], [place] [facility] [place] 14:55:25 Acute sinusitis 70333885 Active 2024 MICHELLE RADFORD MD [address] [facility], [address], [place], [address], [place] [facility] [place] 08:49:38 Problem Notes None recorded. Procedures Surgical History Date Name Laterality Status Provider Name and Address Organization Details Recorded Time 08/27/20 25 Allergy Immunotherapy Injections completed Josseline Hurd [address] [facility],[address], [address], [facility] - [facility] 08/27/2025 16:06:21 08/01/20 25 Allergy Immunotherapy Injections completed SAGE SHAFFER RN [address] [facility],[address], [address], [place] [facility] 08/01/2025 13:49:10 07/23/20 25 Allergy Immunotherapy Injections completed DARSHAN ELIZABETH Dilia [address] [facility],[address], [address], [place] [facility] 07/23/2025 16:43:52 07/10/20 25 Allergy Immunotherapy Injections completed SAGE SHAFFER RN 100 [facility],[address], [address], [place] [facility] [place] 07/10/2025 15:33:20 07/03/20 25 Allergy Immunotherapy Injections completed MANSI PATTERSON [address] [facility] [place] [address] [place] [address], [address], [place] [facility] 07/03/2025 11:45:25 06/19/20 25 Allergy Immunotherapy Injections completed MANSI HERRERA [address] [facility] [place] [address], [place], [address], [facility] - [facility] [place] 06/19/2025 15:49:30 06/13/20 25 Allergy Immunotherapy Injections completed MANSI HERRERA [address] [facility] [place] [address] [place] [address], [address], [facility] - [facility] [place] 06/13/2025 10:29:34 06/04/20 25 Allergy Immunotherapy Injections completed MANSI HERRERA [address] [facility] [place] [address], [address], [facility] - [facility] [place] 06/04/2025 17:10:18 05/29/20 25 Allergy Immunotherapy Injections completed MANSI PATTERSON [address] [facility] [place],[address], [address], [facility] - [facility] [place] 05/29/2025 14:00:36 05/08/20 25 Allergy Immunotherapy Injections completed SAGE SHAFFER RN [address] [facility],[address], [address], [facility] - [facility] [place] 05/08/2025 14:20:05 05/02/20 25 Allergy Immunotherapy Injections completed DARSHAN ELIZABETH Dilia [address] [facility] [place],[address], [address], [facility] - [facility] [place] 05/02/2025 15:10:27 04/23/20 25 Allergy Immunotherapy Injections completed MANSI HERRERA [address] [facility],[address], [address], [facility] - [facility] [place] 04/23/2025 14:59:41 03/27/20 25 nasal septoplasty completed MICHELLE BUCKLEY MD [address] [facility] [place] [address] [place] [address], [address], [facility] - [facility] [place] 03/27/2025 14:10:24 03/27/20 25 excision of gordo bullosa completed MICHELLE BUCKLEY MD [address] [facility] [place] [address], [place], [address], [place] [facility] [place] 03/27/2025 14:11:26 03/27/20 25 submucous resection of nasal turbinate completed MICHELLE BUCKLEY MD [address], [place], [address], [place] [facility] [place] 03/27/2025 14:11:07 03/20/20 25 Allergy Immunotherapy Injections completed MANSI HERRERA [address], [place], [address], [place] [facility] [place] 03/20/2025 12:03:14 03/14/20 25 Allergy Immunotherapy Injections completed SAGE SHAFFER RN [address] [address], [place], [address], [place] [facility] [place] 03/14/2025 10:14:23 03/05/20 25 Allergy Immunotherapy Injections completed MANSI HERRERA [address], [place], [address], [place] [facility] [place] 03/05/2025 14:35:25 02/20/20 25 Allergy Immunotherapy Injections completed MANSI PATTERSON [address],[place] [address] [place] [address], [address], [place] [facility] [place] 02/19/2025 14:42:36 02/12/20 25 Allergy Immunotherapy Injections completed MANSI PATTERSON [address],[place] [address] [place] [address], [address], [place] [facility] [place] 02/11/2025 14:28:02 02/07/20 25 Allergy Immunotherapy Injections completed MANSI HERRERA [address],[place] [address], [address], [place] [facility] [place] 02/06/2025 14:38:05 01/22/20 25 Allergy Immunotherapy Injections completed SAGE SHAFFER RN [address],[place] [address], [place], [address], [place] [facility] [place] 01/21/2025 14:36:26 01/17/20 25 Allergy Immunotherapy Injections completed MANSI PATTERSON [address] [address], [place], [address], [place] [facility] [place] 01/16/2025 11:44:26 01/08/20 25 Allergy Immunotherapy Injections completed SAGE SHAFFER RN [address], [place], [address], [place] [facility] [place] 01/07/2025 16:03:39 12/11/19 25 Allergy Immunotherapy Injections completed MANSI PATTERSON [address], [place], [address], [place] [facility] [place] 12/11/2024 14:58:51 11/19/19 25 Allergy Immunotherapy Injections completed SAGE SHAFFER RN [address], [place], [address], [place] [facility] [place] 11/19/2024 15:29:01 10/31/19 25 Allergy Immunotherapy Injections completed SAGE SHAFFER RN [address], [place], [address], [place] [facility] [place] 10/31/2024 15:11:35 10/23/19 25 Allergy Immunotherapy Injections completed MANSI HERRERA [address], [place], [address], [place] [facility] [place] 10/23/2024 16:29:40 10/08/20 24 Allergy Immunotherapy Injections completed MANSI HERRERA [address] [address], [place], [address], [place] [facility] [place] 10/08/2024 11:46:55 09/26/20 24 Allergy Immunotherapy Injections completed MANSI HERRERA [address], [place], [address], [place] [facility] 09/26/2024 14:25:57 09/17/20 24 Allergy Immunotherapy Injections completed SAGE SHAFFER RN [address],[place] [address], [place], [address], [place] [facility] 09/17/2024 16:06:43 09/11/20 24 Allergy Immunotherapy Injections completed MANSI HERRERA [address],[place] [address], [place], [address], [place] [facility] 09/11/2024 11:19:42 09/05/20 24 Allergy Immunotherapy Injections completed EARL CHRISTIANSON, A [address], [place], [address], [facility] - [facility] 09/05/2024 10:17:58 08/26/20 24 Allergy Immunotherapy Injections completed EARL CHRISTIANSON RMA [address], [place], [address], [facility] - [facility] 08/26/2024 16:07:13 06/28/20 24 Allergy Testing-Full completed DARSHAN ELIZABETH, RMA [address], [place], [address], [place] [facility] 06/28/2024 11:23:07 06/19/20 24 JMSNasal/Sinus Endoscopy completed MICHELLE BUCKLEY MD [address] [facility] [place] [facility], [place], [address], [facility] - [facility] 06/19/2024 10:47:04 Imaging Results None recorded. [...] Available oxymetazoli ne 0.05 % nasal spray Canmer 2 sprays twice a day by intranasa [...] ICD10 Code Diagnosis IMO Codes Diagnosis Note [id number] Josseline Vickey Allergy 100 [facility] 100 [place] [address] 08/01/2025 13:30:51 08/01/2025 13:49:33 Perennial allergic rhinitis [id number] J30.89 [id number] Josseline Vickey Allergy 100 [facility] [address] [place] [address] 08/27/2025 15:58:27 08/27/2025 16:06:56 Perennial allergic rhinitis [id number] J30.89 Health Concerns Section Related Observation LastModified by Organization Natashaai ls LastModified Time None Recorded Concern Status LastModified by Organization Details LastModified Time None Recorded Payers Encounter Date Sequence Insurance Name Policy Number Policy Hobbs Covered Member ID Hobbs Member ID Guarantor Name 08/27/2025 1 [employer] [employer] - HEALTH NET PLAN (MEDICAID HMO) AURELIA Patel [id number] Gabe Patel
--- OUTSIDE RECORDS SUMMARY | 2025-09-04 02:16 | XMS_ITS | Continuity of Care Document ---
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 Name Role Phone RUTH FERNANDES Primary Care Provider Assessment Encounter Date Assessment Date Assessment LastModified by Organization Details LastModified Time 07/23/2025 07/23/2025 Visit With: Geneva Soto Use of Antihistamine s: Yes If yes: Vial Test Change in medications: No If yes Increase in asthma symptoms If yes, inhaler use: Reaction to last injections: No If yes: Allergy Symptoms: Other: Missed: Dose Aware of Vial Test Aware: Notes: [email or web address] Not available 07/23/2025 16:44:00 Plan of Treatment Reminders Order Date Submit Date Provider Last Modified By Organization Details Last Modified Time Details Appointments [facility]- Allergy f-up 6mon 2025 01:30P M BLANCA [...] Address Organization Details Recorded Time Allergic rhinitis [id number] Active 2023 MICHELLE RADFORD MD [address] [address], [place], [address], [facility] - [facility] 10:47:14 Polyp of nasal cavity 841798746 Active 2023 MICHELLE RADFORD MD [address] [address], [place], [address], [facility] [place] 4 10:47:20 Deviated nasal septum 352974576 Active 2023 MICHELLE RADFORD MD [address] [address], [place], [address], [facility] - [facility] [place] 5 14:53:58 Mild intermittent asthma 073902444 Active 2023 MICHELLE RADFORD MD 100 [facility] E [facility], [place], [address], [facility] - [facility] [place] 5 14:12:57 Chronic sinusitis 35945228 Active 2023 MICHELLE RADFORD MD [address] [address], [place], [address], [facility] - [facility] [place] 4 10:48:43 Nasal congestion 79156227 Active 2023 MICHELLE RADFORD MD [address] [address], [place], [address], [facility] - [facility] [place] 4 09:41:01 Perennial allergic rhinitis 097727346 Active 2023 [facility] [address] [facility], E [facility], [place], [address], [facility] - [facility] [place] 5 16:43:37 Allergic reaction to pollen 482411167 Active 2024 MICHELLE RADFORD MD 100 [facility] E [facility], [place], [address], [facility] - [facility] [place] 5 14:54:08 Hypertrophy of nasal turbinates 55357133 Active 2024 MICHELLE RADFORD MD 100 [facility], E [facility], [place], [address], [facility] - [facility] [place] 5 14:54:14 Gordo bullosa 834549083 Active 2024 MICHELLE RADFORD MD 100 [facility],[address], [place], [address], [place] [facility] [place] 14:54:23 Seasonal allergic rhinitis 993579697 Active 2024 MICHELLE RADFORD MD 100 [facility], [address], [place], [address], [place] [facility] [place] 14:55:25 Acute sinusitis 98611513 Active 2024 MICHELLE RADFORD MD 100 [facility], [address], [place], [address], [place] [facility] [place] 08:49:38 Problem Notes None recorded. Procedures Surgical History Date Name Laterality Status Provider Name and Address Organization Details Recorded Time 08/27/20 25 Allergy Immunotherapy Injections completed Josseline Hurd 100 [facility],[address], [address], [place] [facility] [place] 08/27/2025 16:06:21 08/01/20 25 Allergy Immunotherapy Injections completed SAGE SHAFFER RN 100 [facility],[address], [address], [place] [facility] [place] 08/01/2025 13:49:10 07/23/20 25 Allergy Immunotherapy Injections completed MANSI PATTERSON [address] [facility], [address], [place] [facility] 07/23/2025 16:43:52 07/10/20 25 Allergy Immunotherapy Injections completed SAGE SHAFFER RN 100 [facility],[address], [address], [place] [facility] [place] 07/10/2025 15:33:20 07/03/20 25 Allergy Immunotherapy Injections completed MANSI PATTERSON [address] [facility] [facility] [place] [address] [place] [address], [address], [place] [facility] [place] 07/03/2025 11:45:25 06/19/20 25 Allergy Immunotherapy Injections completed MANSI HERRERA [address] [facility] [facility] [place],[place] [address] [place] [address], [address], [place] [facility] [place] 06/19/2025 15:49:30 06/13/20 25 Allergy Immunotherapy Injections completed MANSI HERRERA [address] [facility] [facility],[place] [address], [place], [address], [place] [facility] [place] 06/13/2025 10:29:34 06/04/20 25 Allergy Immunotherapy Injections completed MANSI HERRERA [address] [facility] [facility] [place],[place] [address], [place], [address], [place] [facility] [place] 06/04/2025 17:10:18 05/29/20 25 Allergy Immunotherapy Injections completed MANSI PATTERSON [address] [facility] [facility] [place],[place] [address] [place] [address], [address], [place] [facility] [place] 05/29/2025 14:00:36 05/08/20 25 Allergy Immunotherapy Injections completed SAGE SHAFFER RN [address] [facility] [facility] [place],[address], [address], [place] [facility] [place] 05/08/2025 14:20:05 05/02/20 25 Allergy Immunotherapy Injections completed DARSHAN ELIZABETH Dilia [address], [address], [place] [facility] [place] 05/02/2025 15:10:27 04/23/20 25 Allergy Immunotherapy Injections completed MANSI HERRERA [address] [facility] [facility] [place] [address] [place] [address], [address], [place] [facility] [place] 04/23/2025 14:59:41 03/27/20 25 nasal septoplasty completed MICHELLE BUCKLEY MD [address],[place] [address] [place] [address], [address], [place] [facility] 03/27/2025 14:10:24 03/27/20 25 excision of gordo bullosa completed MICHELLE BUCKLEY MD [address],[place] [address], [place], [address], [place] [facility] [place] 03/27/2025 14:11:26 03/27/20 25 submucous resection of nasal turbinate completed MICHELLE BUCKLEY MD [address], [place], [address], [place] [facility] 03/27/2025 14:11:07 03/20/20 25 Allergy Immunotherapy Injections completed MANSI HERRERA [address], [place], [address], [place] [facility] [place] 03/20/2025 12:03:14 03/14/20 25 Allergy Immunotherapy Injections completed SAGE SHAFFER RN [address],[place] [address], [place], [address], [place] [facility] [place] 03/14/2025 10:14:23 03/05/20 25 Allergy Immunotherapy Injections completed MANSI HERRERA [address],[place] [address], [place], [address], [place] [facility] [place] 03/05/2025 14:35:25 02/20/20 25 Allergy Immunotherapy Injections completed MANSI PATTERSON [address],[place] [address] [place] [address], [address], [place] [facility] [place] 02/19/2025 14:42:36 02/12/20 25 Allergy Immunotherapy Injections completed MANSI PATTERSON [address],[place] [address], [place], [address], [place] [facility] 02/11/2025 14:28:02 02/07/20 25 Allergy Immunotherapy Injections completed MANSI HERRERA [address],[place] [address] [place] [address], [address], [place] [facility] 02/06/2025 14:38:05 01/22/20 25 Allergy Immunotherapy Injections completed SAGE SHAFFER RN [address],[place] [address], [place], [address], [place] [facility] 01/21/2025 14:36:26 01/17/20 25 Allergy Immunotherapy Injections completed MANSI PATTERSON [address],[place] [address], [place], [address], [place] [facility] 01/16/2025 11:44:26 01/08/20 25 Allergy Immunotherapy Injections completed SAGE SHAFFER RN [address], [place], [address], [place] [facility] 01/07/2025 16:03:39 12/11/19 25 Allergy Immunotherapy Injections completed MANSI PATTERSON [address], [place], [address], [place] [facility] 12/11/2024 14:58:51 11/19/19 25 Allergy Immunotherapy Injections completed SAGE SHAFFER RN [address], [place], [address], [place] [facility] 11/19/2024 15:29:01 10/31/19 25 Allergy Immunotherapy Injections completed SAGE SHAFFER RN [address],[place] [address] [place] [address], [address], [place] [facility] 10/31/2024 15:11:35 10/23/19 25 Allergy Immunotherapy Injections completed MANSI HERRERA [address], [place], [address], [place] [facility] 10/23/2024 16:29:40 10/08/20 24 Allergy Immunotherapy Injections completed MANSI HERRERA [address],[place] [address] [place] [address], [address], [place] [facility] 10/08/2024 11:46:55 09/26/20 24 Allergy Immunotherapy Injections completed MANSI HERRERA [address],[place] [address], [place], [address], [place] [facility] 09/26/2024 14:25:57 09/17/20 24 Allergy Immunotherapy Injections completed SAGE SHAFFER RN [address], [place], [address], [place] [facility] 09/17/2024 16:06:43 09/11/20 24 Allergy Immunotherapy Injections completed MANSI HERRERA [address],[place] [address], [place], [address], [place] [facility] 09/11/2024 11:19:42 09/05/20 24 Allergy Immunotherapy Injections completed GENEVA SOTO A [address], [place], [address], [facility] - [facility] 09/05/2024 10:17:58 08/26/20 24 Allergy Immunotherapy Injections completed GENEVA SOTO A [address], [place], [address], [facility] - [facility] 08/26/2024 16:07:13 06/28/20 24 Allergy Testing-Full completed DARSHAN ELIZABETH, A [address], [place], [address], [facility] - [facility] 06/28/2024 11:23:07 06/19/20 24 JMSNasal/Sinus Endoscopy completed MICHELLE BUCKLEY MD [address] [facility],[address], [place], [address], [facility] - [facility] 06/19/2024 10:47:04 Imaging Results None recorded. [...] Available oxymetazoli ne 0.05 % nasal spray Oaks 2 sprays twice a day by intranasa [...] ICD10 Code Diagnosis IMO Codes Diagnosis Note [id number] [facility] Allergy [address] [place] [address] [place] [address] 07/03/2025 11:27:54 07/03/2025 11:45:59 Perennial allergic rhinitis [id number] J30.89 [id number] MICHELLE MATTHEWS MD [facility] [place] [address] [place] [address] [facility] [place] [address] 07/07/2025 13:50:56 07/07/2025 14:18:22 Perennial allergic rhinitis 797879076 J30.89 Mild inter mittent asthma 789692807 J45.20 77402 SAGE SHAFFER RN Allergy [address] [place] [address] [place] [address] 07/10/2025 15:28:38 07/10/2025 15:33:54 Perennial allergic rhinitis 435279293 J30.89 13900 GENEVA SOTO RMDilia Allergy 100 [facility], [address] 100 [place] [address] 07/23/2025 16:16:53 07/23/2025 16:44:13 Perennial allergic rhinitis 491367159 J30.89 Health Concerns Section Related Observation LastModified by Organization Detai ls LastModified Time None Recorded Concern Status LastModified by Organization Details LastModified Time None Recorded Payers Encounter Date Sequence Insurance Name Policy Number Policy Hobbs Covered Member ID Hobbs Member ID Guarantor Name 07/23/2025 1 [facility] [employer] - HEALTH NET PLAN (MEDICAID HMO) AURELIA Patel [id number] Gabe Patel
--- OUTSIDE RECORDS SUMMARY | 2025-09-04 02:16 | XMS_ITS | Clinical Summary ---
Author Organization [facility] Address [address] [address] Phone Care Team Providers Care Cone Machine Feeder Name Role Phone Manan Murry MD Primary Care Provider [phone] Allergies No known active allergies Medications cetirizine (ZyrTEC) 10 MG tablet TAKE 1 TABLET BY MOUTH ONCE DAILY NEEDED FOR ALLERGY SYMPTOMS 1 Active amLODIPine (NORVASC) 10 MG tabletIndicati ons:Hypertensi on TAKE 1 TABLET BY MOUTH 1 TIME EACH DAY. 90 tablet 3 5 Active amLODIPine (NORVASC) 10 MG tabletIndicati ons:Hypertensi on Take 1 tablet (10 mg total) by mouth 1 (one) time each day 30 tablet 11 4 025 Discontinued Active Problems Problem Noted Date Diagnosed Date Hypertension 06/22/2021 Hypertriglyceridemia 11/03/2015 Overweight 10/08/2015 Seasonal allergic rhinitis 10/08/2015 Encounters Date Type Department Care Team Description 08/24/2025 Refill [facility] [address]. [address] [address] Cherry English ARNP Hypertension from Last 3 Months Family History Medical [...] Influenza Vaccine (#1) 2025 Insurance Care Teams Cone Machine Feeder Relationship Specialty Start Date End Date Lainer, Manan, MD [address] [facility] [place] [facility] - General Internal Medicine 05/03/21
--- OUTSIDE RECORDS SUMMARY | 2025-09-04 02:16 | XMS_ITS | Data Portability ---
Author Organization [place] [facility], Allergy Address [address] [address] Care Team Providers Care Bank Credit Card Collection Clerk Name Role Phone RUTH FERNANDES Primary Care Provider [phone] Assessment Encounter Date Assessment Date Assessment LastModified [...] prescribed regimen and follow up as needed. [email or web address] Not available 07/07/2025 14:15:53 07/10/2025 07/10/2025 Visit With: Sage Shaffer RN Use of Antihistamine s: Yes If yes: Vial Test Change in medications: No If yes Increase in asthma symptoms No If yes, inhaler use: Reaction to last injections: No If yes: Allergy Symptoms: Other: Missed: Dose Aware of Vial Test Aware: Notes: [email or web address] Not available 07/10/2025 15:33:26 07/23/2025 07/23/2025 Visit With: Geneva Soto Use of Antihistamine s: Yes If yes: Vial Test Change in medications: No If yes Increase in asthma symptoms If yes, inhaler use: Reaction to last injections: No If yes: Allergy Symptoms: Other: Missed: Dose Aware of Vial Test Aware: Notes: [email or web address] Not available 07/23/2025 16:44:00 08/01/2025 08/01/2025 Visit With: Sage Shaffer RN Use of Antihistamine s: Yes If yes: Vial Test Change in medications: No If yes Increase in asthma symptoms No If yes, inhaler use: Reaction to last injections: No If yes: Allergy Symptoms: Other: Missed: Dose Aware of Vial Test Aware: Notes: [email or web address] Not available 08/01/2025 13:49:16 08/27/2025 08/27/2025 Visit With: Josseline Hurd MA Use of Antihistamine s: Yes If yes: Vial Test Change in medications: No If yes Increase in asthma symptoms No If yes, inhaler use: Reaction to last injections: No If yes: Allergy Symptoms: Other: Missed: 3 weeks Dose Decreased Aware of Vial Test Yes Aware: Notes: Not available 08/27/2025 16:06:36 Plan of Treatment [...] 55 mcg nasal spray aerosol 2024 025 [facility]/Pharmacy #[facility], [address] [place] [address], [phone], 07/07/2025 14:13:59 Saline Nasal Mist 0.65 % spray aerosol 2024 025 [facility]/Pharmacy #[facility], [address] [place] [address], [phone], 07/07/2025 14:14:00 Patient TargetsNo targets recorded. Patient Instructions Encounter Date Encounter Id Patient Instructions Last Modified By Organization Details Last Modified Time 07/07/2025 [id number] - Use saline solution for nasal irrigation two to three times daily. - Use Flonase-like nasal spray once daily. - Continue allergy injections. - Continue taking cetirizine pills. [email or web address] Not available 07/07/2025 14:14:21 Please note: Parts of this encounter note have been generated by AI based on audio conversation. Patient consent was required prior to utilizing this technology. Content review was required prior to finalizing the note. [email or web address] Not available 07/07/2025 14:14:21 Reason for Referral None Reported. Problems Name Problem SNOMED Code Status Onset Date Resolution Date Notes Provider Name and Address Organization Details Recorded Time Allergic rhinitis 34414922 Active 2023 MICHELLE RADFORD MD [address], [place], [address], [facility] - [facility] [place] 4 10:47:14 Polyp of nasal cavity 117783632 Active 2023 MICHELLE RADFORD MD [address], [place], [address], [facility] - [facility] [place] 4 10:47:20 Deviated nasal septum 124255794 Active 2023 MICHELLE RADFORD MD [address], [place], [address], [facility] - [facility] 5 14:53:58 Mild intermittent asthma 159408994 Active 2023 MICHELLE RADFORD MD [address], [place], [address], [facility] - [facility] [place] 5 14:12:57 Chronic sinusitis 04032126 Active 2023 MCIHELLE RADFORD MD [address], [place], [address], [facility] - [facility] [place] 4 10:48:43 Nasal congestion 23590332 Active 2023 MICHELLE RADFORD MD [address], [place], [address], [facility] - [facility] [place] 4 09:41:01 Perennial allergic rhinitis 897682749 Active 2023 [facility], RMA 100 [facility],[address], [place], [address], [facility] - [facility] 16:43:37 Allergic reaction to pollen 634297037 Active 2024 MICHELLE RADFORD MD 100 [facility],[address], [place], [address], [facility] - [facility] 14:54:08 Hypertrophy of nasal turbinates 05738940 Active 2024 MICHELLE RADFORD MD 100 [facility],[address], [place], [address], [facility] - [facility] 14:54:14 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 MICHELLE RADFORD MD 100 [facility], [address], [place], [address], [facility] - [facility] 14:54:23 Seasonal allergic rhinitis 115251556 Active 2024 MICHELLE RADFORD MD 100 [facility], [address], [place], [address], [facility] 14:55:25 Acute sinusitis 64811487 Active 2024 MICHELLE RADFORD MD 100 [facility], [address], [place], [address], [facility] 08:49:38 Problem Notes None recorded. Procedures Surgical History Date Name Laterality Status Provider Name and Address Organization Details Recorded Time 08/27/20 25 Allergy Immunotherapy Injections completed Josseline Hurd 100 [facility],[address], [address], [facility] 08/27/2025 16:06:21 08/01/20 25 Allergy Immunotherapy Injections completed SAGE SHAFFER RN 100 [facility],[place] [address], [place], [address], [facility] 08/01/2025 13:49:10 07/23/20 25 Allergy Immunotherapy Injections completed DARSHAN ELIZABETH RMA [address], [place], [address], [place] [facility] [place] 07/23/2025 16:43:52 07/10/20 25 Allergy Immunotherapy Injections completed SAGE SHAFFER RN [address], [place], [address], [place] [facility] [place] [facility] 07/10/2025 15:33:20 07/03/20 25 Allergy Immunotherapy Injections completed DARSHAN ELIZABETH RMA [address], [place], [address], [place] [facility] [place] [facility] 07/03/2025 11:45:25 06/19/20 25 Allergy Immunotherapy Injections completed MANSI HERRERA [address], [place], [address], [place] [facility] [place] [facility] 06/19/2025 15:49:30 06/13/20 25 Allergy Immunotherapy Injections completed MANSI HERRERA [address] [facility], [place], [address], [place] [facility] [place] 06/13/2025 10:29:34 06/04/20 25 Allergy Immunotherapy Injections completed CRIS HERRERAA [address], [place], [address], [place] [facility] [place] 06/04/2025 17:10:18 05/29/20 25 Allergy Immunotherapy Injections completed DARSHAN ELIZABETH RMA [address], [place], [address], [place] [facility] 05/29/2025 14:00:36 05/08/20 25 Allergy Immunotherapy Injections completed SAGE SHAFFER RN [address], [place], [address], [place] [facility] [place] 05/08/2025 14:20:05 05/02/20 25 Allergy Immunotherapy Injections completed DARSHAN ELIZABETH RMA [address], [place], [address], [place] [facility] 05/02/2025 15:10:27 04/23/20 25 Allergy Immunotherapy Injections completed MANSI HERRERA [address] [place] [address], [address], [place] [facility] 04/23/2025 14:59:41 03/27/20 25 nasal septoplasty completed MICHELLE BUCKLEY MD [address] [facility],[address] [place] [address], [address], [place] [facility] 03/27/2025 14:10:24 03/27/20 25 excision of gordo bullosa completed MICHELLE BUCKLEY MD [address] [facility],[address], [address], [place] [facility] 03/27/2025 14:11:26 03/27/20 25 submucous resection of nasal turbinate completed MICHELLE BUCKLEY MD [address] [facility],[address], [address], [place] [facility] [place] [facility] 03/27/2025 14:11:07 03/20/20 25 Allergy Immunotherapy Injections completed MANSI HERRERA [address] [facility],[address], [address], [place] [facility] 03/20/2025 12:03:14 03/14/20 25 Allergy Immunotherapy Injections completed SAGE SHAFFER RN [address] [facility],[address] [place] [address], [address], [place] [facility] 03/14/2025 10:14:23 03/05/20 25 Allergy Immunotherapy Injections completed MANSI HERRERA [address] [facility],[address] [place] [address], [address], [place] [facility] 03/05/2025 14:35:25 02/20/20 25 Allergy Immunotherapy Injections completed MANSI PATTERSON [address] [place] [address], [address], [place] [facility] 02/19/2025 14:42:36 02/12/20 25 Allergy Immunotherapy Injections completed MANSI PATTERSON [address] [facility],[address], [address], [place] [facility] 02/11/2025 14:28:02 02/07/20 25 Allergy Immunotherapy Injections completed MANSI HERRERA [address], [place], [address], [place] [facility] 02/06/2025 14:38:05 01/22/20 25 Allergy Immunotherapy Injections completed SAGE SHAFFER RN [address], [place], [address], [place] [facility] 01/21/2025 14:36:26 01/17/20 25 Allergy Immunotherapy Injections completed MANSI PATTERSON [address] [place] [address], [address], [place] [facility] 01/16/2025 11:44:26 01/08/20 25 Allergy Immunotherapy Injections completed SAGE SHAFFER RN [address] [facility],[address] [place] [address], [address], [place] [facility] 01/07/2025 16:03:39 12/11/19 25 Allergy Immunotherapy Injections completed MANSI PATTERSON [address] [place] [address], [address], [place] [facility] 12/11/2024 14:58:51 11/19/19 25 Allergy Immunotherapy Injections completed SAGE SHAFFER RN [address] [place] [address], [address], [place] [facility] 11/19/2024 15:29:01 10/31/19 25 Allergy Immunotherapy Injections completed SAGE SHAFFER RN [address], [place], [address], [place] [facility] 10/31/2024 15:11:35 10/23/19 25 Allergy Immunotherapy Injections completed MANSI HERRERA [address], [place], [address], [place] [facility] 10/23/2024 16:29:40 10/08/20 24 Allergy Immunotherapy Injections completed MANSI HERRERA [address], [address], [facility] - [facility] 10/08/2024 11:46:55 09/26/20 24 Allergy Immunotherapy Injections completed MANSI HERRERA [address] [facility],[address], [address], [facility] - [facility] 09/26/2024 14:25:57 09/17/20 24 Allergy Immunotherapy Injections completed SAGE SHAFFER RN 100 [facility],[address], [address], [facility] - [facility] 09/17/2024 16:06:43 09/11/20 24 Allergy Immunotherapy Injections completed MANSI HERRERA 100 [facility],[address], [address], [facility] - [facility] 09/11/2024 11:19:42 09/05/20 24 Allergy Immunotherapy Injections completed MANSI HERRERA 100 [facility],[address], [address], [facility] - [facility] 09/05/2024 10:17:58 08/26/20 24 Allergy Immunotherapy Injections completed MANSI HERRERA 100 [facility],[address], [address], [facility] - [facility] 08/26/2024 16:07:13 06/28/20 24 Allergy Testing-Full completed DARSHAN ELIZABETH [facility] 100 [facility],[address], [address], [facility] - [facility] 06/28/2024 11:23:07 06/19/20 24 JMSNasal/Sinus Endoscopy completed MICHELLE BUCKLEY MD 100 [facility],[address], [address], [facility] - [facility] 06/19/2024 10:47:04 Imaging Results None recorded. Procedure [...] Available oxymetazoli ne 0.05 % nasal spray Canby 2 sprays twice a day by intranasa [...] Updated DateTime 07/07/2025 162.56 cm 30.9 kg/m2 37484.63 g Aura Finn [place] - [facility] 07/07/2025 13:54:13 Social History None recorded. Functional Status None recorded. Mental Status None recorded. Family History Nothing Reported. Medical History Condition Response Hypertension Y Past Encounters Encounter ID Performer Location Encounter Start Date Encounter Closed Date Diagnosis/Indication Diagnosis SNOMED-CT Code Diagnosis ICD10 Code Diagnosis IMO Codes Diagnosis Note [id number] MICHELLE MATTHEWS MD [facility] [address] [address] 06/19/2024 10:02:26 06/19/2024 11:01:12 Allergic rhinitis 65581770 J30.9 Polyp of nasal cavity 73 8907389 J33.0 Deviated nasal septum 12 2625819 J34.2 Mild inter mittent asthma 661265043 J45.20 Chronic sinusitis 585434 00 J32.9 [id number] SAGE SHAFFER RN Allergy [address] [place] [address] 06/19/2024 11:44:49 06/19/2024 11:46:11 Allergic rhinitis 02179658 J30.9 [id number] DARSHAN ELIZABETH [facility] [address] [place] [address] 06/28/2024 10:09:30 06/28/2024 12:17:12 Allergic rhinitis 43427733 J30.9 [id number] MICHELLE MATTHEWS MD [facility] [address] [address] 08/14/2024 09:24:12 08/14/2024 10:27:18 Allergic rhinitis 09626284 J30.9 We also discussed the role of immunother apy. I explained that this is instituted for the most significan t of allergies and involves the introducti on of increasing ly graduated dosages of the appropriat e allergens by subcutaneo us injection to facilitate tolerance. I explained about the likelihood of some improvemen t usually within a three to six month time period provided that the patient is compliant with therapy. It may take substantia lly longer for patients with severe allergy. We spoke about the duration of therapy, which typically lasts from three to five years though at times can be indefinite . We also discussed the risk of anaphylaxi s with therapy. Use of an Epipen discussed. Nasal congestion 8941488 0 R09.81 Chronic sinusitis 113270 00 J32.9 [id number] GENEVA SOTO [facility] 100 [facility],[address] [place] [address] 08/26/2024 15:25:17 08/26/2024 16:21:36 Perennial allergic rhinitis 330114282 J30.89 Allergic rhinitis 166660 04 J30.9 [id number] GENEVA SOTO [facility] Allergy [address] [place] [address],[address] [place] [address] 09/05/2024 10:06:14 09/05/2024 10:29:54 Perennial allergic rhinitis 558824544 J30.89 [id number] GENEVA SOTO [facility] Allergy [address] [place] [address], [address] [facility] [place] [address] 09/11/2024 10:55:42 09/11/2024 11:20:24 Perennial allergic rhinitis 020337488 J30.89 [id number] SAGE SHAFFER RN Allergy [address] [place] [address],[address] [place] [address] 09/17/2024 15:36:57 09/17/2024 16:07:09 Perennial allergic rhinitis 413036333 J30.89 [id number] GENEVA SOTO [facility] Allergy [address] [place] [address], [address] [place] [address] 09/26/2024 13:20:28 09/26/2024 14:26:28 Perennial allergic rhinitis 116503075 J30.89 [id number] GENEVA SOTO [facility] Allergy [address] [place] [address],[address] [place] [address] 10/08/2024 11:32:50 10/08/2024 11:47:15 Perennial allergic rhinitis 130704590 J30.89 [id number] GENEVA SOTO [facility] Allergy [address] [place] [address],[address] [place] [address] 10/23/2024 16:21:32 10/23/2024 16:30:02 Perennial allergic rhinitis 611330831 J30.89 [id number] SAGE SHAFFER RN Allergy 100 [facility],[address] [place] [address] 10/31/2024 15:01:46 10/31/2024 15:11:57 Perennial allergic rhinitis 535768593 J30.89 [id number] SAGE SHAFFER RN Allergy [address] [place] [address],[address] [place] [address] 11/19/2024 15:23:45 11/19/2024 15:29:55 Perennial allergic rhinitis 281369511 J30.89 [id number] [facility], A Allergy 100 [facility],[address] [place] [address] 12/11/2024 14:52:37 12/11/2024 14:59:18 Perennial allergic rhinitis 414284277 J30.89 [id number] GENEVA SOTO [facility] Allergy [address] [place] [address],[address] [place] [address] 01/07/2025 15:31:30 01/07/2025 16:04:12 Perennial allergic rhinitis 732244596 J30.89 [id number] [facility], A Allergy [address] [place] [address],[address] [place] [address] 01/16/2025 10:47:33 01/16/2025 11:45:28 Perennial allergic rhinitis 135090345 J30.89 [id number] SAGE SHAFFER RN Allergy [address] [place] [address],[address] [place] [address] 01/21/2025 14:30:40 01/21/2025 14:36:51 Perennial allergic rhinitis 242267537 J30.89 [id number] GENEVA SOTO [facility] Allergy [address] [place] [address],[address] [place] [address] 02/06/2025 14:24:12 02/06/2025 14:38:24 Perennial allergic rhinitis 669043321 J30.89 [id number] [facility], RMA Allergy 100 [facility],[address] [place] [address] 02/11/2025 13:56:18 02/11/2025 14:28:29 Perennial allergic rhinitis 845958685 J30.89 [id number] MICHELLE MATTHEWS MD [facility] [address] [address] 02/19/2025 14:37:19 02/19/2025 14:58:42 Deviated nasal septum 047227893 J34.2 44637 Allergic r eaction to pollen 927575081 J30.0 [id number] Hypertroph y of nasal turbinates 24144718 J34.3 [id number] Gordo bullosa 626633031 J34.89 0198826 Allergic rhinitis 834644 04 J30.9 continue SCIT. Seasonal a llergic rhinitis 365691642 J30.2 [id number] SAGE SHAFFER RN Allergy [address] [place] [address] 02/19/2025 14:36:49 02/19/2025 14:43:11 Perennial allergic rhinitis 673681343 J30.89 [id number] MANSI HERRERA Allergy [address] [place] [address] 03/05/2025 14:34:47 03/05/2025 14:35:56 Perennial allergic rhinitis 762690465 J30.89 [id number] SAGE SHAFFER RN Allergy [address] [place] [address] 03/14/2025 10:13:30 03/14/2025 10:14:45 Perennial allergic rhinitis 561576183 J30.89 [id number] MANSI HERRERA Allergy [address] [place] [address] 03/20/2025 12:02:30 03/20/2025 12:04:50 Perennial allergic rhinitis 369244137 J30.89 [id number] MICHELLE MATTHEWS MD [facility] [address] [address] 03/31/2025 08:24:35 03/31/2025 08:53:39 Acute sinusitis 52312009 J01.80 96647775 [id number] GENEVA SOTO [facility] Allergy 100 [facility],[address] [place] [address] 04/23/2025 14:43:16 04/23/2025 15:00:38 Perennial allergic rhinitis 501038641 J30.89 [id number] [facility], A Allergy 100 [facility],[address] [place] [address] 05/02/2025 14:39:06 05/02/2025 15:13:00 Perennial allergic rhinitis 080429860 J30.89 [id number] SAGE SHAFFER nursing associate [address] [place] [address],[address] [place] [address] 05/08/2025 14:14:01 05/08/2025 14:20:27 Perennial allergic rhinitis 442285626 J30.89 [id number] [facility] Allergy [address] [place] [address],[address] [place] [address] 05/29/2025 13:40:21 05/29/2025 14:00:56 Perennial allergic rhinitis 594837908 J30.89 [id number] [facility] [address] [place] [address],[address] [place] [address] 06/04/2025 17:05:00 06/04/2025 17:15:13 Perennial allergic rhinitis 720326458 J30.89 [id number] GENEVA SOTO [facility] Allergy [address] [place] [address],[address] [place] [address] 06/13/2025 10:12:51 06/13/2025 10:29:57 Perennial allergic rhinitis 206905054 J30.89 [id number] GENEVA SOTO [facility] Allergy 100 [facility],[address] [place] [address] 06/19/2025 15:39:10 06/19/2025 15:49:59 Perennial allergic rhinitis 711353253 J30.89 [id number] [facility], [facility] Allergy 100 [facility],[address] [place] [address] 07/03/2025 11:27:54 07/03/2025 11:45:59 Perennial allergic rhinitis 041381479 J30.89 [id number] MICHELLE MATTHEWS MD [facility] [place] [address] [place] [address] 07/07/2025 13:50:56 07/07/2025 14:18:22 Perennial allergic rhinitis 121192093 J30.89 Mild inter mittent asthma 031986850 J45.20 [id number] SAGE SHAFFER RN Allergy [address] [place] [address] [place] [address] 07/10/2025 15:28:38 07/10/2025 15:33:54 Perennial allergic rhinitis 213134819 J30.89 [id number] GENEVA SOTO [facility] [address] [place] [address] [place] [address] 07/23/2025 16:16:53 07/23/2025 16:44:13 Perennial allergic rhinitis 702248303 J30.89 [id number] [facility] [address] [place] [address] [facility] [place] [address] 08/01/2025 13:30:51 08/01/2025 13:49:33 Perennial allergic rhinitis 409174302 J30.89 [id number] Josseline Vickey [facility] [address] [place] [address] [place] [address] 08/27/2025 15:58:27 08/27/2025 16:06:56 Perennial allergic rhinitis 829022851 J30.89 Health Concerns Section Related Observation LastModified by Organization Detai ls LastModified Time None Recorded Concern Status LastModified by Organization Details LastModified Time None Recorded Advance Directives Directive None Recorded Payers Insurance Date Sequence Insurance Name Policy Number Policy Hobbs Covered Member ID Hobbs Member ID Guarantor Name 08/27/2025 1 [facility] NET PLAN (MEDICAID HMO) AURELIA Patel [id number] Gabe Patel Notes Date Note Type Note [...] No infection is reported. MICHELLE BUCKLEY MD [address] [place] [address], [phone], [facility] - [facility] 07/07/2025 14:16:18
== END 2025-09-03 14:44 | disposition home or self-care (01) ==
LOC: HO.HMCH 13:59
PROVIDERS: Visit Provider Internal Medicine
DX: R07.9 Chest pain, unspecified (principal)

== ENCOUNTER → 2025-09-03 13:58 | Outpatient (BNVA) | payer OTHER, SELFPAY | PROVIDERS: Visit Provider Internal Medicine | DX: I10 Essential (primary) hypertension (principal); R07.9 Chest pain, unspecified | CPT/HCPCS: 99212 ==

== ENCOUNTER 2025-10-13 13:52 | Outpatient (AMB) | payer OTHER, SELFPAY ==
--- NOTE | 2025-10-13 13:55 | A.OFFPC_ITS ---
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 He reports the pain comes and goes, sometimes on one side, sometimes in the bottom, and sometimes in the center of his chest. Episodes last for a few minutes, resolve, and can return in a different location about an hour later. The patient has a history of this pain for about 2-3 years and expresses worry that it is cardiac in origin. He underwent a full cardiac workup in March [address] Salazar, which included a stress test, an echocardiogram, and a Holter monitor, all of which were negative. The echocardiogram showed a normal ejection fraction of 55-60% and normal left ventricular systolic function. 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 [facility] Medical History Hypertension Surgical History No history of previous surgery Family History Mother High blood pressure Cancer Father No problems noted. Social History Housing: Apartment Alcohol intake: current Alcohol intake frequency: a few times a month Patient Tobacco Use Status: Never used Tobacco e-Cigarette/Vaping Use: Never Used Second Hand Smoke Exposure: No service: No Current occupational status: employed Cognitive needs: No Hearing needs: No Vision needs: No Questionnaire Thrive Questionnaire Date Thrive assessed: 09/03/25 What is your living situation today?: I have a steady place to live Within the past 12 months, did the food you bought not last and you didn't have the money to get more?: Never true Within the past 12 months, did you worry whether your food would run out before you got money to buy more?: Never true Do you have trouble paying for medicines?: No Do you have trouble getting transportation to medical appointments?: No Do you have trouble paying your heating and electricity bill?: I choose not to answer this question Do you have trouble taking care of your child, family member or friend?: No Do you have trouble with day-to-day activities such as bathing, preparing meals, shopping, managing finances, etc.?: No Are you currently unemployed and looking for a job?: No Are you interested in more education?: I choose not to answer this question Currently or been in a relationship where the following occur: I choose not to answer THRIVE Score: 0 MARVEL-7 AMB Questionnaire MARVEL-7 Date MARVEL - 7 assessed: 09/03/25 Source: Developed by Drs. Abhijeet Nunn, Mary Baker, Sherwin Kaminski and colleagues, with an educational valarie from [employer]. Review of Systems Const Details: As per HPI. Physical exam (Primary Care) Vital Signs: Last Vital Signs Temp 98.5 F 10/13/25 13:57 Pulse 78 10/13/25 13:57 Resp 18 10/13/25 13:57 BP 136/78 10/13/25 13:57 Pulse Ox 97 10/13/25 13:57 Oxygen Delivery Method Room Air 10/13/25 13:57 BMI result Body Mass Index 30.7 Tobacco/Smoking Status: Tobacco use Status Tobacco use date assessed 09/03/25 10/13/25 13:56 Patient Tobacco Use Status Never used Tobacco 10/13/25 13:56 Tobacco use type 03/06/23 14:26 e-Cigarette/Vaping Use Never Used 10/13/25 13:56 Thrive Assessment: Date of Thrive Assessment Date Thrive assessed 09/03/25 10/13/25 13:56 Currently or been in a relationship where the following occur: I choose not to answer Const Other: Pertinent findings are in BOLD GENERAL APPEARANCE NAD, activity normal for age, well developed/ well nourished, no cyanosis, pallor, or diaphoresis. EYES lids/conjunctiva normal. EARS/NOSE/THROAT Mucous membranes moist, nares normal, lips/teeth normal uvula midline without oral pharyngeal erythema, exudate or swelling TMs normal bilaterally. No lymphangitis/lymphedema. HEAD/NECK normocephalic atraumatic, no facial trauma, neck is supple. RESPIRATORY respiratory effort normal, speaks in full sentences, no tripod position, no accessory muscle use. Lungs clear to auscultation without rhonchi, wheezes, rales CARDIAC Regular rate and rhythm, no edema. ABDOMINAL Soft, ND/NT. No evidence of fluid wave. No pulsatile masses on exam, rebound tenderness, Bautista sign or pain over Mcburney's point. MUSCLES/EXTREMITIES No abnormal range of motion, no swelling. SKIN Warm, pink and dry. No rashes, dermatoses, petechiae or lesions. NEUROLOGICAL Speech is clear and appropriate. Normal level of consciousness. Gait and coordination are normal. 5/5 strength in all extremities. PSYCH Normal mood and affect. Judgement/competence is appropriate Coding Level of Care Code Est Pt Level 4 (48214) Diagnoses Chest pain, unspecified type R07.9 Chest pain type: unspecified Stress F43.9 Time Spent (min) 20 Assessment & Plan Assessment & Plan (1) Chest pain: Code(s): R07.9 - Chest pain, unspecified Category: Medical Qualifiers: Chest pain type: unspecified Qualified Code(s): R07.9 - Chest pain, unspecified Plan: - The patient's chest pain is considered non-cardiac in nature, given its characteristics (intermittent, migratory, brief duration) and the comprehensive negative cardiac workup from March 2023, which included a normal echocardiogram, Holter monitor, and stress test. - Reassurance was provided that the symptoms are not indicative of a serious heart problem. - A cardiology referral is not indicated at this time. - The patient was advised to monitor for any association between the pain and food intake to evaluate for a possible gastrointestinal cause. - Plan to follow up in 6 weeks to re-evaluate symptoms. (2) Stress: Code(s): F43.9 - Reaction to severe stress, unspecified Category: Medical Plan: - The patient reports significant life stress, primarily from working long hours. - He was counseled on the importance of prioritizing his well-being, taking breaks, and not overworking. - Encouraged him to engage in hobbies and distracting activities like sports to manage stress. Plan I spoke with the patient about his persistent chest pain. I reviewed his comprehensive cardiac workup from March 2023, which was entirely negative, and explained that based on these results and the nature of his pain (brief, migratory), it is not concerning for a cardiac issue. I provided reassurance that his heart is healthy. We discussed that while I initially considered a referral to cardiology, it is not necessary given the recent negative evaluation. We discussed the role of stress and anxiety in pain perception and explored alternative, non-serious causes. I advised him to avoid researching his symptoms online, as it can be misleading. We agreed on a plan to monitor his symptoms, noting any relationship to meals, and to follow up in six weeks. We also discussed his significant work-related stress, and I encouraged him to prioritize his well-being by taking breaks and engaging in enjoyable, distracting activities. Orders: Referrals Cardiology Referral R07.9 - Chest pain, unspecified
[2025-10-13 13:57] VITALS: BP 136/78; PULSE 78; RESP 18; TEMP 36.9; O2SAT 97; BMI 30.7
--- OUTSIDE RECORDS SUMMARY | 2025-10-13 16:08 | XMS_ITS | Clinical Summary ---
Author Organization [facility] Address [address] [address] Phone Care Team Providers Care Content Producer Name Role Phone Manan Murry MD Primary Care Provider [phone] Allergies No known active allergies Medications cetirizine (ZyrTEC) 10 MG tablet TAKE 1 TABLET BY MOUTH ONCE DAILY NEEDED FOR ALLERGY SYMPTOMS 05/12/2021 Active amLODIPine (NORVASC) 10 MG tabletIndicatio ns:Hypertension TAKE 1 TABLET BY MOUTH 1 TIME EACH DAY. 90 tablet 3 08/25/2025 Active Active Problems Problem Noted Date Diagnosed Date Hypertension 06/22/2021 Hypertriglyceridemia 11/03/2015 Overweight 10/08/2015 Seasonal allergic rhinitis 10/08/2015 Encounters Date Type Department Care Team Description 08/24/2025 Refill [facility] [address] [id number] Cherry English ARNP Hypertension from [...] PCV) 2004 Influenza Vaccine (#1) 2025 Insurance Medicaid Care Teams Content Producer Relationship Specialty Start Date End Date Manan Murry MD [address] [place] [address] PCP - General Internal Medicine 05/03/21
== END 2025-10-13 14:28 | disposition home or self-care (01) ==
LOC: HO.HMCH 13:53
PROVIDERS: Visit Provider Internal Medicine
DX: R07.9 Chest pain, unspecified (principal); F43.9 Reaction to severe stress, unspecified

== ENCOUNTER → 2025-10-13 13:52 | Outpatient (BNVA) | payer OTHER, SELFPAY | PROVIDERS: Visit Provider Internal Medicine | DX: R07.89 Other chest pain (principal); F43.9 Reaction to severe stress, unspecified | CPT/HCPCS: 99212 ==